=== PATIENT | female | born 1930 | race Hispanic/Latino ===

== ENCOUNTER 2017-01-26 06:52 | Inpatient (IN) | payer MEDICARE ==
[2016-12-23 09:29] VITALS: BMI 17.6
[2017-01-26 07:42] LABS: ADD MANUAL DIFF? NO
[2017-01-26 07:46] LABS: BASO # 0.03 K/mm3 (0.0-2.0); BASO % 0.4 % (0.0-3.0); EOS # 0.2 (0.0-0.7); GRAN # 5.66 (1.4-6.5); GRAN % 68.2 % (50.0-68.0); HEMATOCRIT 37.7 % (36.0-48.0); LYMPH # 1.5 (1.2-3.4); LYMPH % 18.6 % (22.0-35.0); MEAN CELL VOLUME 91.1 fL (80.0-105.0); MEAN CORPUSCULAR HEMOGLOBIN 30.2 pg (25.0-35.0); MEAN CORPUSCULAR HGB CONC 33.2 g/dl (31.0-37.0); MEAN PLATELET VOLUME 11.1 fl (7.0-11.0); MONO # 0.9 (0.1-0.6); MONO % 10.8 % (1.0-6.0); PLATELET COUNT 339 10^3/uL (120.0-450.0); RED CELL DISTRIBUTION WIDTH 14.4 % (11.5-14.5); WHITE BLOOD COUNT 8.3 10^3/ul (4.5-11.0)
[2017-01-26 07:56] LABS: INR 1.02 (0.93-1.08); PARTIAL THROMBOPLASTIN TIME 28.3 Seconds (23.7-30.8)
[2017-01-26 07:59] LABS: CALCIUM 10.4 mg/dL (8.4-10.5); POTASSIUM 4.2 mmol/L (3.6-5.0)
[2017-01-26] MEDS ORDERED: Rocuronium 10 mg/ml (5 ml) ONE ×2 (09:29→10:36)
[2017-01-26] MEDS ORDERED: Propofol 10 mg/ml Inj (20 ML) ONE (09:29)
[2017-01-26] MEDS ORDERED: metroNIDAZOLE IV 500 mg/100 ml 100 ML ONE (09:42)
[2017-01-26] MEDS ORDERED: ePHEDrine 50 mg/ml Inj ONE (09:53)
--- NOTE | 2017-01-26 11:37 | PCM.SURG1 ---
Surgeon's Initial Post Op Note - Surgeon's Notes Surgeon: Dr. Woodward Transmission And Protection Engineer: Dr. Young PGY-1, Dr. Carrera Pre-Operative Diagnosis: Colon Cancer Operative Findings: See operative notes Post-Operative Diagnosis: Colon Cancer Operation Performed: Right Hemicolectomy Specimen/Specimens Removed: Right colon Estimated Blood Loss: EBL {In ML}: 20 Drains Used: No Drains Post-Op Condition: Good Date of Surgery/Procedure: 01/26/17 Time of Surgery/Procedure: 11:37
[2017-01-26] MEDS ORDERED: HYDROmorphone 0.5 mg/0.5 ml ISec IVP PRN ×2 (11:38→11:43)
[2017-01-26] MEDS ORDERED: Lactated Ringer's 1,000 ML IV SCH ×2 (11:45)
[2017-01-26] MEDS ORDERED: Insulin Regular 1 UNITS/0.01 ML ML SC STA (13:24)
--- NOTE | 2017-01-26 13:24 | OP ---
PROCEDURE DATE: 01/26/2017 PREOPERATIVE DIAGNOSIS: Right colon cancer. POSTOPERATIVE DIAGNOSIS: Right colon cancer. PROCEDURE PERFORMED: Right hemicolectomy. SURGEON: Dr. Woodward ASSISTANTS: Dr. Carrera and Dr. Young ANESTHESIOLOGIST: Dr. Tyler ANESTHESIA: General endotracheal anesthesia. ESTIMATED BLOOD LOSS: 20 mL. SPECIMEN: Right colon with attached omentum. INDICATION: The patient is an 87-year-old female with history of right colon cancer noted on a colon oscopy almost obstructing with poor p.o. intake and malnutrition. The patient was seen in the office . Discussed extensively with patient and family regarding the risks involving the surgery. However, both the family and the patient wanted to proceed and patient was scheduled for right hemicolectomy. The patient was brought into the operating room and placed on the operating table in a supine positio n. The patient was connected to EKG, blood pressure and pulse oximeter monitors. The patient then u nderwent general endotracheal anesthesia and was prepped and draped in usual sterile fashion. First, a standard timeout procedure took place and everybody in the room agreed as to the patient's i dentity, diagnosis and procedure to be performed. Dr. Carrera was the oral surgery assistant and was present during the entire procedure and was essential to p rompt and safe performance of this procedure. He was involved in all aspects including the entry int o the abdominal cavity, dissection, colon resection and anastomosis as well as closure of the wound. First, using #15 blade, an incision was made in the midline extending from just below the umbilicus t o the mid epigastric area. The dissection was carried through the subcutaneous fat and fascia and ac cess to the abdominal cavity was obtained. On initial evaluation, it appeared that the mass was in t he mid descending colon and I then proceeded with mobilization of the right colon along the line of T oldt and slowly elevated the right colon on its mesentery. The hepatic flexure was mobilized and the omentum was transected to about the proximal 1/3 of the transverse colon. The right branch of the m iddle colic artery was identified and ligated and transected. Once the mesentery was completely elev ated to its root and the distal ileum, I then proceeded with transecting the transverse colon using G IA stapler and proceeded with dissection of the mesentery at its root. The dissection was carried al l the way down to the origin of the ileocolic artery. Once this was done and all the lymph nodes adj acent to it were included with the specimen, I then proceeded with transecting terminal ileum at a po int about 10 cm from the ileocecal valve and transected the mesentery of this portion of the colon al l the way down to the origin of the ileocecal artery. Once this was done, the ileocecal artery was t hen clamped and transected and ligated using 2-0 Vicryl. Once this was completed, I then proceeded w ith removal of the specimen and creating anastomosis between the terminal ileum and transverse colon using VERN and TA staplers. The mesenteric defect was closed. The abdominal cavity was copiously irr igated. There was excellent hemostasis. The wound was closed using #1 PDS for the fascia, 3-0 Vicry l for the subcutaneous tissue and 4-0 Monocryl for skin. Sterile Dermabond dressing was applied to t he wound. The patient tolerated the procedure well and there was no complication. The patient was a wakened, extubated and transferred to the recovery room for further observation. Johan Woodward MD cc: [id number] TT: 01/26/2017 13:24:35 en
[2017-01-26] MEDS ORDERED: Insulin Regular 100 units/ml ONE (13:37)
[2017-01-26] MEDS: Lactated Ringer's 1,000 ML IV SCH ×2 (14:30→17:24)
--- NOTE | 2017-01-26 15:02 | CP.PCM.CON ---
Addendum entered and electronically signed by Flores Rincon DO 01/26/17 16:25: - Physical Exam Head: Positive for: Atraumatic, Normocephalic Pupils: Positive for: PERRL Extroacular Muscles: Positive for: EOMI Conjunctiva: Positive for: Normal Mouth: Positive for: Moist Mucous Membranes Neck: Positive for: Normal Range of Motion Respiratory/Chest: Negative for: Respiratory Distress, Accessory Muscle Use, Wheezing, Rhonchi, Rales Cardiovascular: Positive for: Regular rhythm, 2/6 systolic murmur LSB Abdomen: Positive for: Normal Bowel Sounds, post-surgical scar, clean, no significant erythema, edema, no drainage. Minimal TTP. Negative for: Distention , Peritoneal Signs, Rebound, Guarding Back: Positive for: Normal Inspection. Negative for: Midline Tenderness, Paraspinal Tenderness Upper Extremity: Positive for: Normal Inspection, Normal ROM. Negative for: Cyanosis, Edema Lower Extremity: Negative for: Edema, Erythema Neurological: Positive for: GCS=15, CN II-XII Intact, Speech Normal Skin: Positive for: Warm, Dry, Normal Color. 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 Mass was found to be nearly obstructing on colonoscopy 12/29/2016. 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 Patient admits to poor appetite in the previous months, occasional nausea without emesis. Denies h/o CP, SOB, diarrhea, fevers, chills, rashes. Patient is seen and examined post-op in ICU, where she is being admitted for close monitoring. She admits to mild post-op abd pain, denies nausea, headache, chills , CP, SOB. Tolerating NC, drank water without any nausea or increased abdominal pain. PMHx: HTN, IDDM2, GERD, sigmoid diverticulosis, R infrarenal AAA 3.0cm PSHx: R hemicolectomy 01/26/2017 FamilyHx: Denies family h/o colon cancers SocialHx: Never smoked, no h/o EtOH or drug use Allergies: NKDA HomeMeds: Humalog, amlodipine, valsartan, omeprazole Review of Systems - Constitutional Constitutional: absent: Chills, Fever - EENT Eyes: absent: Change in Vision Ears: absent: Dizziness - Cardiovascular Cardiovascular: absent: Chest Pain, Diaphoresis, Dyspnea - Respiratory Respiratory: absent: Cough, Dyspnea, Pain on Inspiration - Gastrointestinal Gastrointestinal: Abdominal Pain (01/02). absent: Nausea, Vomiting - Genitourinary Genitourinary: absent: Dysuria, Flank Pain - Reproductive: Female Reproductive:Female: Post Menopausal - Menstruation Menstruation: Post Menopausal Past Patient History - Infectious Disease Hx of Infectious Diseases: None - Tetanus Immunizations Tetanus Immunization: Unknown - Past Social History Smoking Status: Never Smoked - CARDIAC Hx Pacemaker: No - PULMONARY Hx Respiratory Disorders: No - NEUROLOGICAL Hx Paralysis: No - HEENT Hx Cataracts: No Hx Difficulty Chewing: No Hx Epistaxis: No Hx Glaucoma: No Hx Macular Degeneration: No - RENAL Hx Chronic Kidney Disease: No Hx Dialysis: No Hx Kidney Stones: No Hx Neurogenic Bladder: No Hx Renal (Kidney) Cancer: No - ENDOCRINE/METABOLIC Hx Endocrine Disorders: Yes - HEMATOLOGICAL/ONCOLOGICAL Hx Blood Transfusions: No - INTEGUMENTARY Hx Dermatological Problems: No Hx Basil Cell: No Hx Eczema: No Hx Melanoma: No Hx Psoriasis: No Hx Squamous Cell: No - MUSCULOSKELETAL/RHEUMATOLOGICAL Hx Musculoskeletal Disorders: No - GASTROINTESTINAL Hx Gastrointestinal Disorders: Yes (colitis) - GENITOURINARY/GYNECOLOGICAL Hx Genitourinary Disorders: No Hx Reproductive Disorders: No Hx Urinary Tract Infection: Yes (RECENTLY TREATED NOW RESOLVED) - PSYCHIATRIC Hx Emotional Abuse: No Hx Physical Abuse: No Hx Substance Use: No - SURGICAL HISTORY Hx Surgeries: Yes - ANESTHESIA Hx Anesthesia Reactions: No Hx Malignant Hyperthermia: No Meds Allergies/Adverse Reactions: Allergies Allergy/AdvReac Type Severity Reaction Status Date / Time No Known Allergies Allergy Verified 08/19/14 11:32 - Medications Medications: Current Medications Acetaminophen (Tylenol 325 Mg Supp) 325 mg RC Q6H PRN PRN Reason: Fever >100.4 F Heparin Sodium (Porcine) (Heparin) 5,000 units SC Q12 RAFA PRN Reason: Protocol Hydromorphone HCl (Dilaudid) 0.5 mg IVP Q4H PRN PRN Reason: Pain, severe (8-10) Metronidazole (Flagyl) 100 mls @ 100 mls/hr IV 0200,1800 RAFA PRN Reason: Protocol Stop: 01/27/17 02:59 Cefoxitin Sodium 1 gm/ Sodium (Chloride) 100 mls @ 100 mls/hr IV 0200,1800 RAFA PRN Reason: Protocol Stop: 01/27/17 02:59 Lactated Ringer's (Lactated Ringer's) 1,000 mls @ 100 mls/hr IV .Q10H RAFA Insulin Human Regular (Humulin R Med) 0 units SC ACHS RAFA PRN Reason: Protocol Non-Formulary Medication (Amlodipine/Valsartan [Exforge 10-160 Mg Tablet]) 1 tab PO QAM RAFA Pantoprazole Sodium (Protonix Ec Tab) 40 mg PO QAM RAFA Physical Exam - Constitutional Appears: No Acute Distress - Head Exam Head Exam: ATRAUMATIC, NORMAL INSPECTION, NORMOCEPHALIC - Eye Exam Eye Exam: EOMI, Normal appearance, PERRL. absent: Scleral icterus Pupil Exam: NORMAL ACCOMODATION, PERRL Results - Vital Signs Recent Vital Signs: Last Vital Signs Temp 97 F L 01/26/17 14:15 Pulse 86 01/26/17 14:15 Resp 18 01/26/17 14:15 BP 90/36 L 01/26/17 14:15 Pulse Ox 99 01/26/17 14:15 - Labs Result Diagrams: 01/26/17 07:30 01/26/17 07:30 Labs: Laboratory Results - last 24 hr 01/26/17 01/26/17 07:30 13:17 WBC 8.3 RBC 4.14 Hgb 12.5 Hct 37.7 MCV 91.1 MCH 30.2 MCHC 33.2 RDW 14.4 Plt Count 339 MPV 11.1 H Gran % 68.2 H Lymph % (Auto) 18.6 L [place] % (Auto) 10.8 H Eos % (Auto) 2.0 Baso % (Auto) 0.4 Gran # 5.66 Lymph # 1.5 [place]asta # 0.9 H Eos # 0.2 Baso # 0.03 PT 11.0 INR 1.02 APTT 28.3 Sodium 138 Potassium 4.2 Chloride 100 Carbon Dioxide 25 Anion Gap 17 BUN 14 Creatinine 1.1 Est GFR ( Amer) 57 Est GFR (Non-Af Amer) 47 POC Glucose (mg/dL) 190 H Random Glucose 162 H Calcium 10.4 Blood Type A NEGATIVE Antibody Screen Negative BBK History Checked Patient has bt Assessment & Plan - Assessment and Plan (Free Text) Assessment: 87 yo F with h/o IDDM2, HTN, GERD, recently diagnosed poorly differentiated adenocarcinoma s/p R hemicolectomy admitted to ICU for observation Plan: Neuro: AAOx3, NAD Maintain normothermia Pulm: Comfortable on NC. Maintain spo2>90 CV: HD stable. Monitor VS hourly Renal: Monitor I&Os, renal function GI: POD #0 s/p uncomplicated R hemicolectomy, no significant blood loss. Monitor vital signs, electrolytes, Hb, I&Os. Pain meds, IVF, management as per surgery 11/22/2016 CT A/P without contrast showed circumferential mural thickening of 5.8cm length of mid ascending colon with mild infiltration of the adjacent fat, pericolonic LN measuring 9mm 12/29/2016 Colonoscopy biopsy shows poorly differentiated adenocarcinoma with focal lymphovascular invasion Recommend oncology evaluation Surgical pathology results pending Endo: Med Lispro SSI, monitor accuchecks, adjust regimen as needed to maintain euglycemia 140-180 ID: No leukocytosis, afebrile, postop abx as per surgical team Heme: Hb stable. Continue to monitor DVT/GI ppx: Protonix, CLD, SQH - Date & Time Date: 01/26/17 Time: 15:02 <Trang Ocampo MD - Last Filed: 01/26/17 16:41> Meds - Medications Medications: Current Medications Acetaminophen (Tylenol 325mg Tab) 650 mg PO Q6H PRN PRN Reason: Fever >100.4 F Heparin Sodium (Porcine) (Heparin) 5,000 units SC Q12 RAFA PRN Reason: Protocol Hydromorphone HCl (Dilaudid) 0.5 mg IVP Q4H PRN PRN Reason: Pain, severe (8-10) Metronidazole (Flagyl) 100 mls @ 100 mls/hr IV 0200,1800 RAFA PRN Reason: Protocol Stop: 01/27/17 02:59 Cefoxitin Sodium 1 gm/ Sodium (Chloride) 100 mls @ 100 mls/hr IV 0200,1800 RAFA PRN Reason: Protocol Stop: 01/27/17 02:59 Lactated Ringer's (Lactated Ringer's) 1,000 mls @ 100 mls/hr IV .Q10H RAFA Insulin Human Lispro (Humalog Med) 0 units SC ACHS RAFA PRN Reason: Protocol Non-Formulary Medication (Amlodipine/Valsartan [Exforge 10-160 Mg Tablet]) 1 tab PO QAM RAFA Pantoprazole Sodium (Protonix Ec Tab) 40 mg PO QAM RAFA Results - Vital Signs Recent Vital Signs: Last Vital Signs Temp 97.6 F 01/26/17 14:56 Pulse 82 01/26/17 14:56 Resp 20 01/26/17 14:56 BP 105/47 L 01/26/17 14:56 Pulse Ox 99 01/26/17 14:15 - Labs Result Diagrams: 01/26/17 07:30 01/26/17 07:30 Labs: Laboratory Results - last 24 hr 01/26/17 01/26/17 07:30 13:17 WBC 8.3 RBC 4.14 Hgb 12.5 Hct 37.7 MCV 91.1 MCH 30.2 MCHC 33.2 RDW 14.4 Plt Count 339 MPV 11.1 H Gran % 68.2 H Lymph % (Auto) 18.6 L [place] % (Auto) 10.8 H Eos % (Auto) 2.0 Baso % (Auto) 0.4 Gran # 5.66 Lymph # 1.5 [place] # 0.9 H Eos # 0.2 Baso # 0.03 PT 11.0 INR 1.02 APTT 28.3 Sodium 138 Potassium 4.2 Chloride 100 Carbon Dioxide 25 Anion Gap 17 BUN 14 Creatinine 1.1 Est GFR ( Amer) 57 Est GFR (Non-Af Amer) 47 POC Glucose (mg/dL) 190 H Random Glucose 162 H Calcium 10.4 Blood Type A NEGATIVE Antibody Screen Negative BBK History Checked Patient has bt Attending/Attestation - Attestation I have personally seen and examined this patient.: Yes I have fully participated in the care of the patient.: Yes I have reviewed all pertinent clinical information: Yes Notes (Text): 01/26/17 16:37 87 y/o F admitted post op from R Hemicolectomy No Suzette -op or post -op complications noted by the surgical team. Found to have concern for a mass on previous imaging and colonoscopy . Pre-jett path shows adenocarcinoma. Op site clean w/o bleeding . Pt's pain well controlled. Can use Morhine prn and/or tylenol. D5 Normal saline @ 100 ml/ hr until feeding is improved, clears tonight per surgery Insulin sliding scale , hold p.o DM meds HTN controlled, will restart once sbp rises. keep < SBP 140. dvt p - heparin sq tid PPi cc time 55 min case d/w with surgical team
[2017-01-26] MEDS ORDERED: Insulin Lispro (humaLOG) LOW Coverage SC SCH (16:30)
[2017-01-26] MEDS ORDERED: Insulin Reg-MEDIUM-Coverage SC SCH (16:30)
[2017-01-26] MEDS: Insulin Lispro (humaLOG) MEDIUM Coverage SC SCH ×2 (17:26→22:12)
[2017-01-26] MEDS: metroNIDAZOLE IV 500 mg/100 ml 100 ML IV SCH (17:27)
[2017-01-26] MEDS: cefOXitin Sodium 1 GM in Sodium Chloride 0.9% 100 ML IV SCH (18:13)
[2017-01-27] MEDS: metroNIDAZOLE IV 500 mg/100 ml 100 ML IV SCH (02:02)
[2017-01-27] MEDS: cefOXitin Sodium 1 GM in Sodium Chloride 0.9% 100 ML IV SCH (02:04)
[2017-01-27 06:27] LABS: HEMATOCRIT 32.8 % (36.0-48.0); MEAN CELL VOLUME 91.1 fL (80.0-105.0); MEAN CORPUSCULAR HGB CONC 32.9 g/dl (31.0-37.0); MEAN PLATELET VOLUME 11.7 fl (7.0-11.0); RED CELL DISTRIBUTION WIDTH 14.6 % (11.5-14.5)
[2017-01-27 06:50] LABS: ALKALINE PHOSPHATASE 51 U/L (38-133); ALT/SGPT 17 U/L (7-56); AST/SGOT 22 U/L (15-39); BILIRUBIN,TOTAL 0.5 mg/dL (0.2-1.3); BLOOD UREA NITROGEN 12 mg/dL (7-21); CALCIUM 9.2 mg/dL (8.4-10.5); CARBON DIOXIDE 24 mmol/L (21-33); CHLORIDE 101 mmol/L (98-107); GFR AFRICAN-AMERICAN > 60; GLUCOSE,RANDOM 168 mg/dL (70-110); MAGNESIUM 1.7 mg/dL (1.7-2.2); PHOSPHOROUS 3.3 mg/dL (2.5-4.5); POTASSIUM 4.4 mmol/L (3.6-5.0); SODIUM 134 mmol/L (132-148); TOTAL PROTEIN 6.1 g/dL (5.8-8.3)
[2017-01-27] MEDS: Lactated Ringer's 1,000 ML IV SCH (08:07)
[2017-01-27] MEDS ORDERED: Non Formulary Medication (Amlodipine/Valsartan [Exforge 10-160 Mg Tablet] 1 TAB) PO SCH (10:00)
--- NOTE | 2017-01-27 10:05 | CP.CCUPN ---
<Flores Rincon - Last Filed: 01/27/17 12:04> CCU Subjective - Physician Review Events Since Last Encounter (Free Text): 01/27/17 10:45 Patient seen and examined bedside. No acute events overnight. Denies any significant abd pain, n/v, fevers, chill, CP, SOB. Has used Tylenol for PRN pain twice overnight. Passing flatus, no BM yet. Critical Care Time Spent (in minutes): 30 CCU Objective - Vital Signs / Intake & Output Intake and Output (Last 8hrs): Intake & Output 01/26/17 01/27/17 01/27/17 22:59 06:59 14:59 Intake Total 1510 1520 Output Total 405 435 Balance 1105 1085 Weight 100 lb 9.6 oz Intake: IV 1150 1400 Right Antecubital 0 Left Wrist 1150 1400 Oral 360 120 Output: Urine 405 435 Urethral (Mcduffie) 405 435 Other: # Bowel Movements 0 0 - Physical Exam Head: Positive for: Atraumatic, Normocephalic Pupils: Positive for: PERRL Extroacular Muscles: Positive for: EOMI Conjunctiva: Positive for: Normal Mouth: Positive for: Moist Mucous Membranes Nose (Internal): Positive for: Normal Inspection Neck: Positive for: Normal Range of Motion Respiratory/Chest: Positive for: Clear to Auscultation, Good Air Exchange. Negative for: Respiratory Distress, Accessory Muscle Use Cardiovascular: Positive for: Regular Rate and Rhythm, Murmurs (2/6 systolic murmur LSB), Normal S1, S2 Abdomen: Positive for: Tenderness (minimal post-op TTP). Negative for: Distention, Normal Bowel Sounds, Peritoneal Signs, Rebound, Guarding Genitourinary/Pelvic Exam: Positive for: Other (mcduffie in place) Upper Extremity: Positive for: Normal Inspection. Negative for: Cyanosis, Edema Lower Extremity: Positive for: Normal Inspection. Negative for: Edema Neurological: Positive for: GCS=15, CN II-XII Intact Skin: Positive for: Warm, Dry Psychiatric: Positive for: Alert, Oriented x 3, Normal Insight, Normal Concentration - Medications Active Medications: Active Medications Generic Name Dose Route Start Last Admin Trade Name Freq PRN Reason Stop Dose Admin Acetaminophen 650 mg 01/26/17 16:14 01/26/17 20:11 Tylenol 325mg Tab PO 650 mg Q6H PRN Administration Fever >100.4 F Acetaminophen 650 mg 01/26/17 20:16 Tylenol 325mg Tab PO Q6H PRN Pain, moderate (4-7) Heparin Sodium (Porcine) 5,000 units 01/27/17 10:00 Heparin SC Q12 [facility] Protocol Lactated Ringer's 1,000 mls @ 100 mls/hr 01/26/17 11:52 01/27/17 08:07 Lactated Ringer's IV 100 mls/hr .Q10H RAFA Administration Insulin Human Lispro 0 units 01/26/17 16:30 01/26/17 22:12 Humalog Med SC Not Given ACHS [facility] Protocol Non-Formulary Medication 1 tab 01/27/17 10:00 Amlodipine/Valsartan [Exforge 10-160 Mg Tablet] PO QAM RAAF Pantoprazole Sodium 40 mg 01/27/17 10:00 Protonix Ec Tab PO QAM [facility] - Patient Studies Lab Studies: Lab Studies 01/27/17 01/26/17 Range/Units 06:00 13:17 WBC 14.0 H D (4.5-11.0) 10^3/ul RBC 3.60 (3.5-6.1) 10^6/uL Hgb 10.8 L (12.0-16.0) gm/dL Hct 32.8 L (36.0-48.0) % MCV 91.1 (80.0-105.0) fL MCH 30.0 (25.0-35.0) pg MCHC 32.9 (31.0-37.0) g/dl RDW 14.6 H (11.5-14.5) % Plt Count 272 (120.0-450.0) 10^3/uL MPV 11.7 H (7.0-11.0) fl Sodium 134 (132-148) mmol/L Potassium 4.4 (3.6-5.0) mmol/L Chloride 101 (98-107) mmol/L Carbon Dioxide 24 (21-33) mmol/L Anion Gap 13 (10-20) BUN 12 (7-21) mg/dL Creatinine 0.8 (0.5-1.4) mg/dL Est GFR ( Amer) > 60 Est GFR (Non-Af Amer) > 60 POC Glucose (mg/dL) 190 H (65-110) mg/dL Random Glucose 168 H (70-110) mg/dL Calcium 9.2 (8.4-10.5) mg/dL Phosphorus 3.3 (2.5-4.5) mg/dL Magnesium 1.7 (1.7-2.2) mg/dL Total Bilirubin 0.5 (0.2-1.3) mg/dL AST 22 (15-39) U/L ALT 17 (7-56) U/L Alkaline Phosphatase 51 (38-133) U/L Total Protein 6.1 (5.8-8.3) g/dL Albumin 3.0 (3.0-4.8) g/dL Globulin 3.0 gm/dL Albumin/Globulin Ratio 1.0 L (1.1-1.8) Laboratory Results - last 24 hr 01/26/17 01/27/17 13:17 06:00 WBC 14.0 H D RBC 3.60 Hgb 10.8 L Hct 32.8 L MCV 91.1 MCH 30.0 MCHC 32.9 RDW 14.6 H Plt Count 272 MPV 11.7 H Sodium 134 Potassium 4.4 Chloride 101 Carbon Dioxide 24 Anion Gap 13 BUN 12 Creatinine 0.8 Est GFR ( Amer) > 60 Est GFR (Non-Af Amer) > 60 POC Glucose (mg/dL) 190 H Random Glucose 168 H Calcium 9.2 Phosphorus 3.3 Magnesium 1.7 Total Bilirubin 0.5 AST 22 ALT 17 Alkaline Phosphatase 51 Total Protein 6.1 Albumin 3.0 Globulin 3.0 Albumin/Globulin Ratio 1.0 L Fingerstick Blood Sugar Results: 142 Review of Systems - Constitutional Constitutional: absent: Fever, Chills - EENT Eyes: absent: Change in Vision - Cardiovascular Cardiovascular: absent: Chest Pain, Diaphoresis, Dyspnea - Respiratory Respiratory: absent: Cough, Dyspnea - Gastrointestinal Gastrointestinal: absent: Abdominal Pain, Diarrhea, Nausea, Vomiting Critical Care Progress Note - Ventilator Checklist PUD Prophalyxis: Yes DVT Prophylaxis: Yes - Prophylaxis GI Prophylaxis GI: PPI - Prophylaxis DVT Prophylaxis DVT: Heparin SQ - Nutrition Nutrition: Nutrition Category Date Time Status Liquid Diet [DIET] Diets 01/26/17 Lunch Ordered Assessment/Plan - Assessment and Plan (Free Text) Assessment: 87 yo F with h/o IDDM2, HTN, GERD, recently diagnosed poorly differentiated adenocarcinoma s/p R hemicolectomy admitted to ICU for observation Plan: Neuro: AAOx3, NAD Maintain normothermia Pulm: Comfortable on NC. Maintain spo2>90 Continue incentive spirometry CV: HD stable. Monitor VS hourly. Continue Exforge. Maintain MAP>65 Renal: Monitor I&Os, renal function GI: POD #1 s/p uncomplicated R hemicolectomy, no significant blood loss. Monitor vital signs, electrolytes, Hb, I&Os. Pain meds, IVF, management as per surgery 11/22/2016 CT A/P without contrast showed circumferential mural thickening of 5.8cm length of mid ascending colon with mild infiltration of the adjacent fat, pericolonic LN measuring 9mm 12/29/2016 Colonoscopy biopsy shows poorly differentiated adenocarcinoma with focal lymphovascular invasion Recommend oncology evaluation Surgical pathology results pending Endo: Med Lispro SSI, monitor accuchecks, adjust regimen as needed to maintain euglycemia 140-180 ID: Leukocytosis today up to 14.0, afebrile, postop abx as per surgical team Heme: Hb stable. Continue to monitor DVT/GI ppx: Protonix, FLD, SQH Dispo: Transfer to med/surg - Date & Time Date: 01/27/17 Time: 10:50 <Damaris MORRIS,Trang H - Last Filed: 01/27/17 17:44> CCU Objective - Vital Signs / Intake & Output Intake and Output (Last 8hrs): Intake & Output 01/27/17 01/27/17 01/27/17 06:59 14:59 22:59 Intake Total 1520 720 Output Total 435 1700 Balance 1085 -980 Weight 100 lb 9.6 oz 100 lb 4.8 oz Intake: IV 1400 Right Antecubital 0 Left Wrist 1400 Oral 120 720 Output: Urine 435 1500 Urethral (Mcduffie) 435 1500 Stool 200 Other: # Bowel Movements 0 0 - Medications Active Medications: Active Medications Generic Name Dose Route Start Last Admin Trade Name Freq PRN Reason Stop Dose Admin Acetaminophen 650 mg 01/26/17 16:14 01/27/17 10:18 Tylenol 325mg Tab PO 650 mg Q6H PRN Administration Fever >100.4 F Acetaminophen 650 mg 01/26/17 20:16 Tylenol 325mg Tab PO Q6H PRN Pain, moderate (4-7) Heparin Sodium (Porcine) 5,000 units 01/27/17 10:00 01/27/17 10:20 Heparin SC 5,000 units Q12 [facility] Administration Protocol Insulin Human Lispro 0 units 01/26/17 16:30 01/27/17 14:00 Humalog Med SC 3 units ACHS [facility] Administration Protocol Non-Formulary Medication 1 tab 01/27/17 10:00 Amlodipine/Valsartan [Exforge 10-160 Mg Tablet] PO QAM RAFA Pantoprazole Sodium 40 mg 01/27/17 10:00 01/27/17 10:19 Protonix Ec Tab PO 40 mg QAM [facility] Administration - Patient Studies Lab Studies: Microbiology Studies 01/26/17 07:30 MRSA Culture (Admit) - Final Nose MRSA NOT DETECTED Lab Studies 01/27/17 Range/Units 06:00 WBC 14.0 H D (4.5-11.0) 10^3/ul RBC 3.60 (3.5-6.1) 10^6/uL Hgb 10.8 L (12.0-16.0) gm/dL Hct 32.8 L (36.0-48.0) % MCV 91.1 (80.0-105.0) fL MCH 30.0 (25.0-35.0) pg MCHC 32.9 (31.0-37.0) g/dl RDW 14.6 H (11.5-14.5) % Plt Count 272 (120.0-450.0) 10^3/uL MPV 11.7 H (7.0-11.0) fl Sodium 134 (132-148) mmol/L Potassium 4.4 (3.6-5.0) mmol/L Chloride 101 (98-107) mmol/L Carbon Dioxide 24 (21-33) mmol/L Anion Gap 13 (10-20) BUN 12 (7-21) mg/dL Creatinine 0.8 (0.5-1.4) mg/dL Est GFR ( Amer) > 60 Est GFR (Non-Af Amer) > 60 Random Glucose 168 H (70-110) mg/dL Hemoglobin A1c 7.0 H (4.2-6.5) % Calcium 9.2 (8.4-10.5) mg/dL Phosphorus 3.3 (2.5-4.5) mg/dL Magnesium 1.7 (1.7-2.2) mg/dL Total Bilirubin 0.5 (0.2-1.3) mg/dL AST 22 (15-39) U/L ALT 17 (7-56) U/L Alkaline Phosphatase 51 (38-133) U/L Total Protein 6.1 (5.8-8.3) g/dL Albumin 3.0 (3.0-4.8) g/dL Globulin 3.0 gm/dL Albumin/Globulin Ratio 1.0 L (1.1-1.8) Laboratory Results - last 24 hr 01/27/17 06:00 WBC 14.0 H D RBC 3.60 Hgb 10.8 L Hct 32.8 L MCV 91.1 MCH 30.0 MCHC 32.9 RDW 14.6 H Plt Count 272 MPV 11.7 H Sodium 134 Potassium 4.4 Chloride 101 Carbon Dioxide 24 Anion Gap 13 BUN 12 Creatinine 0.8 Est GFR ( Amer) > 60 Est GFR (Non-Af Amer) > 60 Random Glucose 168 H Hemoglobin A1c 7.0 H Calcium 9.2 Phosphorus 3.3 Magnesium 1.7 Total Bilirubin 0.5 AST 22 ALT 17 Alkaline Phosphatase 51 Total Protein 6.1 Albumin 3.0 Globulin 3.0 Albumin/Globulin Ratio 1.0 L Critical Care Progress Note - Nutrition Nutrition: Nutrition Category Date Time Status Liquid Diet [DIET] Diets 01/27/17 Dinner Ordered Attending/Attestation - Attestation I have personally seen and examined this patient.: Yes I have fully participated in the care of the patient.: Yes I have reviewed all pertinent clinical information: Yes Notes (Text): 01/27/17 17:44 87 y/o f s/p partial colectomy No acute issues overnight Pain controled with tylenol Out of bed to chair diet advanced per surgery Vitals WNL PT OT needed Electrolytes to be repleted Pt awaiting transfer.
[2017-01-27] MEDS: Pantoprazole 40 mg EC Tab PO SCH (10:19)
[2017-01-27] MEDS: Insulin Lispro (humaLOG) MEDIUM Coverage SC SCH ×2 (14:00→23:11)
--- NOTE | 2017-01-27 14:54 | CP.PCM.PN ---
Subjective - Date & Time of Evaluation Date of Evaluation: 01/27/17 Time of Evaluation: 07:00 - Subjective Subjective: General Surgery Progress Note for Dr. Woodward This 87F was seen and examined this AM at bedside. reports no acute events overnight. Pain well controlled. Denies fevers chills chest pain SOB nausea vomiting or diarrhea. Patient denies any flatus. Wound well approximated non erythematous non draining. Objective - Vital Signs/Intake and Output Vital Signs (last 24 hours): Temp Pulse Resp BP Pulse Ox 98.2 F 76 26 H 135/58 L 97 01/27/17 04:00 01/27/17 12:28 01/27/17 12:28 01/27/17 12:00 01/27/17 12:28 Intake and Output: 01/27/17 01/27/17 06:59 18:59 Intake Total 1520 240 Output Total 710 400 Balance 810 -160 - Medications Medications: Current Medications Acetaminophen (Tylenol 325mg Tab) 650 mg PO Q6H PRN PRN Reason: Fever >100.4 F Last Admin: 01/27/17 10:18 Dose: 650 mg Acetaminophen (Tylenol 325mg Tab) 650 mg PO Q6H PRN PRN Reason: Pain, moderate (4-7) Heparin Sodium (Porcine) (Heparin) 5,000 units SC Q12 RAFA PRN Reason: Protocol Last Admin: 01/27/17 10:20 Dose: 5,000 units Insulin Human Lispro (Humalog Med) 0 units SC ACHS RAFA PRN Reason: Protocol Last Admin: 01/27/17 14:00 Dose: 3 units Non-Formulary Medication (Amlodipine/Valsartan [Exforge 10-160 Mg Tablet]) 1 tab PO QAM RAFA Pantoprazole Sodium (Protonix Ec Tab) 40 mg PO QAM [facility] Last Admin: 01/27/17 10:19 Dose: 40 mg - Labs Labs: 01/27/17 06:00 01/27/17 06:00 PT 11.0 Seconds (9.9-11.8) 01/26/17 07:30 INR 1.02 (0.93-1.08) 01/26/17 07:30 APTT 28.3 Seconds (23.7-30.8) 01/26/17 07:30 - Constitutional Appears: Non-toxic, No Acute Distress - Head Exam Head Exam: ATRAUMATIC, NORMOCEPHALIC - Eye Exam Eye Exam: EOMI, Normal appearance - ENT Exam ENT Exam: Mucous Membranes Moist, Normal Exam - Respiratory Exam Respiratory Exam: Clear to Ausculation Bilateral, NORMAL BREATHING PATTERN - Cardiovascular Exam Cardiovascular Exam: REGULAR RHYTHM, +S1, +S2 - GI/Abdominal Exam GI & Abdominal Exam: Soft. absent: Guarding, Rigid, Tenderness Additional comments: Surgical glue in place. Wound well approximated non erythematous non draining. - Neurological Exam Neurological Exam: Alert, Awake - Psychiatric Exam Psychiatric exam: Normal Affect, Normal Mood - Skin Skin Exam: Dry, Intact, Normal Color Assessment and Plan - Assessment and Plan (Free Text) Assessment: This is an 87F with a PMH of HTN and DM who is POD#1 S/P Right storm colectomy and doing well DM: Continue Medium insulin sliding scale HTN: Continue amlodipine/valsartan Pain: Continue Tylenol for pain avoid opiates GI: Continue home Protonix PE PPX: Continue heparin sc and stockings Resp: Continue insentive spirometry Diet: Goal to advance to full liquids this evening Transfer to [facility] [place] Discussed with Dr. Crissy Young PGY-1
[2017-01-28 07:52] LABS: HEMATOCRIT 33.7 % (36.0-48.0); MEAN CELL VOLUME 91.1 fL (80.0-105.0); MEAN CORPUSCULAR HGB CONC 32.9 g/dl (31.0-37.0); MEAN PLATELET VOLUME 11.4 fl (7.0-11.0); RED CELL DISTRIBUTION WIDTH 14.9 % (11.5-14.5); WHITE BLOOD COUNT 11.5 10^3/ul (4.5-11.0)
[2017-01-28 08:06] LABS: ALKALINE PHOSPHATASE 64 U/L (38-133); ALT/SGPT 28 U/L (7-56); AST/SGOT 25 U/L (15-39); BILIRUBIN,TOTAL 0.7 mg/dL (0.2-1.3); BLOOD UREA NITROGEN 8 mg/dL (7-21); CALCIUM 9.5 mg/dL (8.4-10.5); CARBON DIOXIDE 26 mmol/L (21-33); CHLORIDE 100 mmol/L (98-107); GFR AFRICAN-AMERICAN > 60; GLUCOSE,RANDOM 128 mg/dL (70-110); MAGNESIUM 1.7 mg/dL (1.7-2.2); PHOSPHOROUS 2.4 mg/dL (2.5-4.5); POTASSIUM 3.7 mmol/L (3.6-5.0); SODIUM 135 mmol/L (132-148); TOTAL PROTEIN 6.3 g/dL (5.8-8.3)
[2017-01-28] MEDS: Insulin Lispro (humaLOG) MEDIUM Coverage SC SCH ×3 (08:30→17:45)
--- NOTE | 2017-01-28 09:41 | CP.PCM.PN ---
Subjective - Date & Time of Evaluation Date of Evaluation: 01/28/17 Time of Evaluation: 07:37 - Subjective Subjective: General Surgery Progress Note for Dr. Woodward This 87F was seen and examined by me this AM at bedside. She reports no acute events overnight. She reports that she is needing minimal pain medication. She is getting up and walking to the bathroom with the help of her nurse. She denies any flatus or BM. She is tolerating full liquids well. She denies any fevers, chills, chest pain, SOB, nausea, vomiting. Midline inscision with glue in place well approximated normocephalic. Objective - Vital Signs/Intake and Output Vital Signs (last 24 hours): Temp Pulse Resp BP Pulse Ox 98.1 F 96 H 17 131/72 94 L 01/28/17 06:00 01/28/17 06:00 01/28/17 06:00 01/28/17 06:00 01/28/17 06:00 Intake and Output: 01/28/17 01/28/17 06:59 18:59 Intake Total 120 Output Total 820 400 Balance -820 -280 - Medications Medications: Current Medications Acetaminophen (Tylenol 325mg Tab) 650 mg PO Q6H PRN PRN Reason: Fever >100.4 F Last Admin: 01/27/17 10:18 Dose: 650 mg Acetaminophen (Tylenol 325mg Tab) 650 mg PO Q6H PRN PRN Reason: Pain, moderate (4-7) Last Admin: 01/27/17 21:43 Dose: 650 mg Heparin Sodium (Porcine) (Heparin) 5,000 units SC Q12 RAFA PRN Reason: Protocol Last Admin: 01/27/17 21:43 Dose: 5,000 units Insulin Human Lispro (Humalog Med) 0 units SC ACHS RAFA PRN Reason: Protocol Last Admin: 01/27/17 23:11 Dose: Not Given Non-Formulary Medication (Amlodipine/Valsartan [Exforge 10-160 Mg Tablet]) 1 tab PO QAM RAFA Pantoprazole Sodium (Protonix Ec Tab) 40 mg PO QAM RAFA Last Admin: 01/27/17 10:19 Dose: 40 mg - Labs Labs: 01/28/17 07:30 01/28/17 07:30 PT 11.0 Seconds (9.9-11.8) 01/26/17 07:30 INR 1.02 (0.93-1.08) 01/26/17 07:30 APTT 28.3 Seconds (23.7-30.8) 01/26/17 07:30 - Constitutional Appears: Non-toxic, No Acute Distress - Head Exam Head Exam: ATRAUMATIC, NORMOCEPHALIC - Eye Exam Eye Exam: EOMI, Normal appearance - ENT Exam ENT Exam: Mucous Membranes Moist, Normal Exam - Respiratory Exam Respiratory Exam: NORMAL BREATHING PATTERN - Cardiovascular Exam Cardiovascular Exam: +S1, +S2 - GI/Abdominal Exam GI & Abdominal Exam: Soft. absent: Guarding, Rigid, Tenderness - Neurological Exam Neurological Exam: Alert, CN II-XII Intact - Psychiatric Exam Psychiatric exam: Normal Affect, Normal Mood - Skin Skin Exam: Dry, Intact, Normal Color Assessment and Plan - Assessment and Plan (Free Text) Assessment: This is an 87F with a PMH of HTN and DM who is POD#2 S/P Right storm colectomy and doing well Vital signs stable, no gross lab abnormalities DM: Continue Medium insulin sliding scale HTN: Continue amlodipine/valsartan Pain: Continue Tylenol for pain avoid opiates GI: Continue home Protonix PE PPX: Continue heparin sc and stockings Resp: Continue insentive spirometry Diet: Goal to advance to soft diet tonight Will discuss with Dr. Crissy Young PGY-1
[2017-01-28] MEDS: Pantoprazole 40 mg EC Tab PO SCH (10:10)
[2017-01-29 07:34] LABS: HEMATOCRIT 35.4 % (36.0-48.0); MEAN CELL VOLUME 90.5 fL (80.0-105.0); MEAN CORPUSCULAR HEMOGLOBIN 30.4 pg (25.0-35.0); MEAN CORPUSCULAR HGB CONC 33.6 g/dl (31.0-37.0); MEAN PLATELET VOLUME 11.3 fl (7.0-11.0); RED CELL DISTRIBUTION WIDTH 14.7 % (11.5-14.5); WHITE BLOOD COUNT 8.3 10^3/ul (4.5-11.0)
[2017-01-29] MEDS: Insulin Lispro (humaLOG) MEDIUM Coverage SC SCH ×2 (07:38→12:23)
[2017-01-29 07:48] LABS: ALKALINE PHOSPHATASE 59 U/L (38-133); ALT/SGPT 26 U/L (7-56); AST/SGOT 24 U/L (15-39); BILIRUBIN,TOTAL 0.7 mg/dL (0.2-1.3); BLOOD UREA NITROGEN 9 mg/dL (7-21); CALCIUM 9.7 mg/dL (8.4-10.5); CARBON DIOXIDE 30 mmol/L (21-33); CHLORIDE 101 mmol/L (98-107); GFR AFRICAN-AMERICAN > 60; GLUCOSE,RANDOM 138 mg/dL (70-110); MAGNESIUM 1.7 mg/dL (1.7-2.2); PHOSPHOROUS 1.9 mg/dL (2.5-4.5); POTASSIUM 3.6 mmol/L (3.6-5.0); SODIUM 137 mmol/L (132-148); TOTAL PROTEIN 6.4 g/dL (5.8-8.3)
[2017-01-29 08:21] VITALS: BP 140/70; PULSE 84; RESP 17; TEMP 98.4; O2SAT 94
[2017-01-29] MEDS: Pantoprazole 40 mg EC Tab PO SCH (09:46)
--- NOTE | 2017-01-29 13:50 | CP.PCM.DIS ---
Provider - Provider Date of Admission: 01/26/17 06:52 Attending physician: Johan Woodward MD Primary care physician: Otilio Ordoñez MD Time Spent in preparation of Discharge (in minutes): 55 Diagnosis - Discharge Diagnosis (1) Colon cancer Status: Acute (2) S/P right hemicolectomy Status: Acute Hospital Course - Lab Results Lab Results: Micro Results 01/26/17 15:17 Naris MRSA Culture (Admit) - Final MRSA NOT DETECTED 01/26/17 07:30 Nose MRSA Culture (Admit) - Final MRSA NOT DETECTED Most Recent Lab Values WBC 8.3 10^3/ul (4.5-11.0) D 01/29/17 07:00 RBC 3.91 10^6/uL (3.5-6.1) 01/29/17 07:00 Hgb 11.9 gm/dL (12.0-16.0) L 01/29/17 07:00 Hct 35.4 % (36.0-48.0) L 01/29/17 07:00 MCV 90.5 fL (80.0-105.0) 01/29/17 07:00 MCH 30.4 pg (25.0-35.0) 01/29/17 07:00 MCHC 33.6 g/dl (31.0-37.0) 01/29/17 07:00 RDW 14.7 % (11.5-14.5) H 01/29/17 07:00 Plt Count 296 10^3/uL (120.0-450.0) 01/29/17 07:00 MPV 11.3 fl (7.0-11.0) H 01/29/17 07:00 Gran % 68.2 % (50.0-68.0) H 01/26/17 07:30 Lymph % (Auto) 18.6 % (22.0-35.0) L 01/26/17 07:30 Mckean % (Auto) 10.8 % (1.0-6.0) H 01/26/17 07:30 Eos % (Auto) 2.0 % (1.5-5.0) 01/26/17 07:30 Baso % (Auto) 0.4 % (0.0-3.0) 01/26/17 07:30 Gran # 5.66 (1.4-6.5) 01/26/17 07:30 Lymph # 1.5 (1.2-3.4) 01/26/17 07:30 Mckean # 0.9 (0.1-0.6) H 01/26/17 07:30 Eos # 0.2 (0.0-0.7) 01/26/17 07:30 Baso # 0.03 K/mm3 (0.0-2.0) 01/26/17 07:30 PT 11.0 Seconds (9.9-11.8) 01/26/17 07:30 INR 1.02 (0.93-1.08) 01/26/17 07:30 APTT 28.3 Seconds (23.7-30.8) 01/26/17 07:30 Sodium 137 mmol/L (132-148) 01/29/17 07:00 Potassium 3.6 mmol/L (3.6-5.0) 01/29/17 07:00 Chloride 101 mmol/L (98-107) 01/29/17 07:00 Carbon Dioxide 30 mmol/L (21-33) 01/29/17 07:00 Anion Gap 10 (10-20) 01/29/17 07:00 BUN 9 mg/dL (7-21) 01/29/17 07:00 Creatinine 0.8 mg/dL (0.5-1.4) 01/29/17 07:00 Est GFR ( Amer) > 60 01/29/17 07:00 Est GFR (Non-Af Amer) > 60 01/29/17 07:00 POC Glucose (mg/dL) 217 mg/dL (65-110) H 01/29/17 11:25 Random Glucose 138 mg/dL (70-110) H 01/29/17 07:00 Hemoglobin A1c 7.0 % (4.2-6.5) H 01/27/17 06:00 Calcium 9.7 mg/dL (8.4-10.5) 01/29/17 07:00 Phosphorus 1.9 mg/dL (2.5-4.5) L 01/29/17 07:00 Magnesium 1.7 mg/dL (1.7-2.2) 01/29/17 07:00 Total Bilirubin 0.7 mg/dL (0.2-1.3) 01/29/17 07:00 AST 24 U/L (15-39) 01/29/17 07:00 ALT 26 U/L (7-56) 01/29/17 07:00 Alkaline Phosphatase 59 U/L (38-133) 01/29/17 07:00 Total Protein 6.4 g/dL (5.8-8.3) 01/29/17 07:00 Albumin 3.2 g/dL (3.0-4.8) 01/29/17 07:00 Globulin 3.2 gm/dL 01/29/17 07:00 Albumin/Globulin Ratio 1.0 (1.1-1.8) L 01/29/17 07:00 Blood Type A NEGATIVE 01/26/17 07:30 Antibody Screen Negative 01/26/17 07:30 BBK History Checked Patient has bt 01/26/17 07:30 - Hospital Course Hospital Course: This is an 87F presented on 01/26/17 for an elective right hemicolectomy. The patient went to the OR and received a right hemicolectomy with a side to side anastomosis. She had an uncomlicated recovery. The first 24hours post op she was in the ICU for close monitoring, on POD#1 she was transferred to the [facility] floor and started on liquids. Post op day two she was started on regular diet and continued to tolerate it well. POD#3 she had two bowel movements and is clear for discharge home from a surgical stand point. Discharge Exam - Head Exam Head Exam: ATRAUMATIC, NORMOCEPHALIC - Eye Exam Eye Exam: EOMI, Normal appearance - Respiratory Exam Respiratory Exam: NORMAL BREATHING PATTERN, UNREMARKABLE - Cardiovascular Exam Cardiovascular Exam: +S1, +S2 - GI/Abdominal Exam Additional comments: Midline inscision with glue in place. Wound well aproximated non erythematous - Neurological Exam Neurological exam: Alert, Oriented x3 - Psychiatric Exam Psychiatric exam: Normal Affect, Normal Mood - Skin Skin Exam: Dry, Intact Discharge Plan - Follow Up Plan Condition: GOOD Disposition: HOME/ ROUTINE Patient education suggested?: Yes Instructions: Colectomy (DC), Colorectal Cancer (GEN) Additional Instructions: No heavy lifting for 4 weeks, continue to get out of bed. You can shower, do not soak incision for 1 week. If you develop new or concerning symptoms go to the emergency room and/or call Dr. Woodward's office. Follow up in office in 1-2 weeks. Referrals: Otilio Ordoñez MD [Primary Care Provider] -
== END 2017-01-29 15:09 | disposition home or self-care (01) | DRG 330 ==
LOC: SDAINP 06:52 → EDSTATUS 08:30 → CCU 14:26 → 3RSO 01-28 00:18
PROVIDERS: ADMIT General Practice; ATTEND General Practice
PROC: 0DTF0ZZ Resection of Right Large Intestine, Open Approach (ICD-10-PCS; principal; 2017-01-26 08:30)
DX: C18.2 Malignant neoplasm of ascending colon (principal); E46 Unspecified protein-calorie malnutrition; Z68.1 Body mass index [BMI] 19.9 or less, adult; E11.9 Type 2 diabetes mellitus without complications; K57.30 Diverticulosis of large intestine without perforation or abscess without bleeding; K21.9 Gastro-esophageal reflux disease without esophagitis; I10 Essential (primary) hypertension; Z79.4 Long term (current) use of insulin

== ENCOUNTER 2017-04-24 12:34 | Observation (INO) | payer MEDICARE, OTHER ==
[2017-04-24 12:53] VITALS: RESP 18; BMI 16.0
--- NOTE | 2017-04-24 12:58 | ED PDOC ---
Arrival/HPI - General Time Seen by Provider: 04/24/17 12:51 Historian: Patient, Family (Daughter) - History of Present Illness Narrative History of Present Illness (Text): 04/24/17 12:51 A 87 year old female, whose past medical history includes diabetes, was sent into the emergency department by quality control director for abnormal labs. Patient states she feels fine and denies any pain or complaints. Patient denies any fever, chills, nausea, vomiting, diarrhea, abdominal pain, chest pain, shortness of breath, cough or any other complaints. Daughter reports patient has been experiencing intermittent abdominal pain for the past few days. PMD: Dr. Ordoñez Tool [employer]: Dr. Burrell Time/Duration: Prior to Arrival Quality: Other Context: Other Past Medical History - Provider Review Nursing Documentation Reviewed: Yes - Infectious Disease Hx of Infectious Diseases: None - Tetanus Immunization Tetanus Immunization: Unknown - Cardiac Hx Cardiac Disorders: No Hx Congestive Heart Failure: No Hx Hypertension: Yes - Pulmonary Hx Chronic Obstructive Pulmonary Disease (COPD): No - Neurological HX Cerebrovascular Accident: No - HEENT Hx Cataracts: No Hx Difficulty Chewing: No Hx Epistaxis: No Hx Glaucoma: No Hx Macular Degeneration: No - Renal Hx Renal Failure: No - Endocrine/Metabolic Hx Diabetes Mellitus Type 1: No Hx Diabetes Mellitus Type 2: Yes Hx Hypothyroidism: No - Hematological/Oncological Hx Blood Transfusions: No - Integumentary Hx Dermatological Disorder: No Hx Basal Cell Carcinoma: No Hx Eczema: No Hx Melanoma: No Hx Psoriasis: No Hx Squamous Cell Carcinoma: No - Musculoskeletal/Rheumatological Hx Arthritis: No - Gastrointestinal Hx Gastrointestinal Disorders: Yes (colitis) - Genitourinary/Gynecological Hx Genitourinary Disorders: No Hx Reproductive Disorders: No Hx Urinary Tract Infection: Yes (RECENTLY TREATED NOW RESOLVED) - Psychiatric Hx Emotional Abuse: No Hx Physical Abuse: No Hx Substance Use: No - Past Surgical History Past Surgical History: No Previous - Surgical History Hx Amputation: No Hx Appendectomy: No Hx Cardiac Catheterization: No Hx Cholecystectomy: No Hx Coronary Stent: No Hx Gastric Bypass Surgery: No Hx Hysterectomy: No Hx Inguinal Hernia Repair: No Hx Joint Replacement: No Hx Kidney Transplant: No Hx Liver Transplant: No Hx Mastectomy: No Hx Musculoskeletal Surgery: No Hx Open Heart Surgery: No Hx Orthopedic Surgery: No Hx Splenectomy: No Hx Valve Replacement: No - Anesthesia Hx Anesthesia Reactions: No Hx Malignant Hyperthermia: No - Suicidal Assessment Feels Threatened In Home Enviroment: No Family/Social History - Physician Review Nursing Documentation Reviewed: Yes Family/Social History: No Known Family HX Smoking Status: Never Smoked Hx Alcohol Use: No Hx Substance Use: No Hx Substance Use Treatment: No Allergies/Home Meds Allergies/Adverse Reactions: Allergies No Known Allergies Allergy (Verified 04/24/17 13:16) Home Medications: Home Meds Medication Instructions Recorded Confirmed Amlodipine/Valsartan [Exforge 1 tab PO QAM 08/19/14 04/24/17 10-160 mg Tablet] Insulin Lispro [humALOG] 20 units SC ACD 12/23/16 04/24/17 Insulin Lispro [humALOG] 25 units SC ACB 12/23/16 04/24/17 Omeprazole 20 mg PO QAM 12/29/16 04/24/17 Review of Systems - Physician Review All systems were reviewed & negative as marked: Yes - Review of Systems Constitutional: Normal. absent: Fevers, Night Sweats Respiratory: absent: SOB, Cough Cardiovascular: absent: Chest Pain Gastrointestinal: absent: Diarrhea, Nausea, Vomiting Physical Exam Vital Signs Temp Pulse Resp BP Pulse Ox 04/24/17 14:35 62 18 121/42 L 100 04/24/17 12:35 97.4 F L 81 18 121/64 98 Appearance: Positive for: Well-Appearing, Non-Toxic, Comfortable Pain Distress: None Mental Status: Positive for: Alert and Oriented X 3 - Systems Exam Head: Present: Atraumatic, Normocephalic Pupils: Present: PERRL Extroacular Muscles: Present: EOMI Conjunctiva: Present: Normal Mouth: Present: Moist Mucous Membranes Neck: Present: Normal Range of Motion Respiratory/Chest: Present: Clear to Auscultation, Good Air Exchange. No: Respiratory Distress, Accessory Muscle Use Cardiovascular: Present: Regular Rate and Rhythm, Normal S1, S2. No: Murmurs Abdomen: Present: Normal Bowel Sounds. No: Tenderness, Distention, Peritoneal Signs Back: Present: Normal Inspection Upper Extremity: Present: Normal Inspection, NORMAL PULSES. No: Cyanosis, Edema Lower Extremity: Present: Normal Inspection, NORMAL PULSES. No: Edema Neurological: Present: GCS=15, Speech Normal Skin: Present: Warm, Dry, Normal Color. No: Rashes Psychiatric: Present: Alert, Oriented x 3, Normal Insight, Normal Concentration Medical Decision Making - Lab Interpretations Lab Results: 04/24/17 13:50 04/24/17 13:50 Lab Results 04/24/17 13:50: Phosphorus 2.8 04/24/17 13:50: Sodium 140, Chloride 113 H, Potassium 3.8, Carbon Dioxide 17 L, Anion Gap 14, BUN 29 H, Creatinine 1.3, Est GFR ( Amer) 47, Est GFR (Non- Af Amer) 39, Random Glucose 84, Calcium 11.0 H, Total Bilirubin 0.5, AST 19, ALT 15, Alkaline Phosphatase 76, Total Protein 7.6, Albumin 4.2, Globulin 3.4, Albumin/Globulin Ratio 1.2 04/24/17 13:50: WBC 9.4, RBC 3.49 L, Hgb 10.7 L, Hct 31.8 L, MCV 91.1, MCH 30.7 , MCHC 33.6, RDW 15.2 H, Plt Count 330, MPV 10.8, Gran % 70.9 H, Lymph % (Auto) 18.1 L, Walker % (Auto) 9.5 H, Eos % (Auto) 1.1 L, Baso % (Auto) 0.4, Gran # 6.64 H, Lymph # 1.7, Walker # 0.9 H, Eos # 0.1, Baso # 0.04 04/24/17 13:50: pO2 44, VBG pH 7.20 L, VBG pCO2 46.0, VBG HCO3 18.0 L, VBG Total CO2 19.4 L, VBG O2 Sat (Calc) 82.3 H, VBG Base Excess -9.9 L, VBG Potassium 3.8, Sodium 142.0, Chloride 113.0 H, Glucose 84, Lactate 1.8, FiO2 21.0, Venous Blood Potassium 3.8 - Medication Orders Current Medication Orders: Sodium Chloride (Sodium Chloride 0.9%) 1,000 mls @ 100 mls/hr IV .Q10H RAFA Last Admin: 04/24/17 16:19 Dose: 100 mls/hr Insulin Human Regular (Humulin R Med) 0 units SC ACHS RAFA PRN Reason: Protocol Last Admin: 04/24/17 16:33 Dose: Not Given Non-Admin Reason: Blood Sugar Parameter Pantoprazole Sodium (Protonix Ec Tab) 40 mg PO 0600 RAFA Sodium Bicarbonate (Sodium Bicarbonate Tab) 650 mg PO TID RAFA Last Admin: 04/24/17 17:43 Dose: 650 mg - Scribe Statement The provider has reviewed the documentation as recorded by the Rhiannon Patino Provider Scribe Attestation: All medical record entries made by the Scribe were at my direction and personally dictated by me. I have reviewed the chart and agree that the record accurately reflects my personal performance of the history, physical exam, medical decision making, and the department course for this patient. I have also personally directed, reviewed, and agree with the discharge instructions and disposition. Disposition/Present on Arrival - Present on Arrival Any Indicators Present on Arrival: No History of DVT/PE: No History of Uncontrolled Diabetes: No Urinary Catheter: No History Surgical Site Infection Following: None - Disposition Have Diagnosis and Disposition been Completed?: Yes Diagnosis: Metabolic acidosis, S/P right hemicolectomy Disposition: HOSPITALIZED Disposition Time: 17:00 Condition: STABLE
[2017-04-24 13:58] LABS: VENOUS BLOOD GAS BASE EXCESS -9.9 mmol/L (0.0-2.0); VENOUS BLOOD GAS PO2 44 mm/Hg (30-55)
[2017-04-24 14:07] LABS: ALB/GLOB RATIO 1.2 (1.1-1.8); ALBUMIN 4.2 g/dL (3.0-4.8)
[2017-04-24 14:12] LABS: BASO # 0.04 K/mm3 (0.0-2.0); BASO % 0.4 % (0.0-3.0); EOS # 0.1 (0.0-0.7); EOS % 1.1 % (1.5-5.0); GRAN # 6.64 (1.4-6.5); GRAN % 70.9 % (50.0-68.0); HEMOGLOBIN 10.7 gm/dL (12.0-16.0); LYMPH # 1.7 (1.2-3.4); LYMPH % 18.1 % (22.0-35.0); MEAN CELL VOLUME 91.1 fL (80.0-105.0); MEAN CORPUSCULAR HEMOGLOBIN 30.7 pg (25.0-35.0); MEAN CORPUSCULAR HGB CONC 33.6 g/dl (31.0-37.0); MEAN PLATELET VOLUME 10.8 fl (7.0-11.0); MONO # 0.9 (0.1-0.6); MONO % 9.5 % (1.0-6.0); PLATELET COUNT 330 10^3/uL (120.0-450.0); RBC 3.49 10^6/uL (3.5-6.1); RED CELL DISTRIBUTION WIDTH 15.2 % (11.5-14.5); WHITE BLOOD COUNT 9.4 10^3/ul (4.5-11.0)
--- NOTE | 2017-04-24 16:09 | CP.PCM.HP ---
<Rj Perez - Last Filed: 04/24/17 16:03> History of Present Illness - History of Present Illness History of Present Illness: This is an 87 y/o female with hx colon CA s/p right hemicolectomy with side- side anastamosis, hx HTN, IDDM presenting who was sent to the ED by her primary Dr. Ordoñez with abdnormal lab results. Lab results indicate non-gapped acidosis. Patient is asymptomatic. She has no complaints at this time. Patient notes decreased appetite and decreased oral intake since colectomy in December,. Patient reports good urinary output, normal stools without blood. Denies constipation, abdominal pain, n/v/d, chest pain, shortness of breath. Patient is compliant with all medications. She has never seen a steamtable worker. PMH: colon ca, HTN, IDDM PSH: right hemicolectomy FH: non-contributory Social hx: lives with daughter. prior hx smoking - quit >40yrs ago. denies alcohol use. Allergies: NKDA PMD: Tiago Surgeon: Romana Onc: Mary Jane GI: Indra Present on Admission - Present on Admission Any Indicators Present on Admission: No Review of Systems - Constitutional Constitutional: Weight Loss. absent: Chills, Fever - EENT Eyes: Blurred Vision, Change in Vision Nose/Mouth/Throat: Nasal Congestion, Nasal Discharge - Cardiovascular Cardiovascular: Diaphoresis. absent: Chest Pain, Dyspnea - Respiratory Respiratory: absent: Cough, Dyspnea - Gastrointestinal Gastrointestinal: absent: Abdominal Pain, Constipation, Diarrhea, Hematochezia, Melena, Nausea, Vomiting - Genitourinary Genitourinary: absent: Dysuria, Hematuria - Musculoskeletal Musculoskeletal: absent: Back Pain, Neck Pain - Integumentary Integumentary: absent: Pruritus, Rash - Psychiatric Psychiatric: absent: Anxiety, Depression - Endocrine Endocrine: absent: Fatigue, Palpitations Past Patient History - Infectious Disease Hx of Infectious Diseases: None - Tetanus Immunizations Tetanus Immunization: Unknown - Past Social History Smoking Status: Never Smoked - CARDIAC Hx Cardiac Disorders: No Hx Congestive Heart Failure: No Hx Hypertension: Yes - PULMONARY Hx Chronic Obstructive Pulmonary Disease (COPD): No - NEUROLOGICAL HX Cerebrovascular Accident: No - HEENT Hx Cataracts: No Hx Difficulty Chewing: No Hx Epistaxis: No Hx Glaucoma: No Hx Macular Degeneration: No - RENAL Hx Renal Failure: No - ENDOCRINE/METABOLIC Hx Diabetes Mellitus Type 1: No Hx Diabetes Mellitus Type 2: Yes Hx Hypothyroidism: No - HEMATOLOGICAL/ONCOLOGICAL Hx Blood Transfusions: No - INTEGUMENTARY Hx Dermatological Problems: No Hx Basil Cell: No Hx Eczema: No Hx Melanoma: No Hx Psoriasis: No Hx Squamous Cell: No - MUSCULOSKELETAL/RHEUMATOLOGICAL Hx Arthritis: No - GASTROINTESTINAL Hx Gastrointestinal Disorders: Yes (colitis) - GENITOURINARY/GYNECOLOGICAL Hx Genitourinary Disorders: No Hx Reproductive Disorders: No Hx Urinary Tract Infection: Yes (RECENTLY TREATED NOW RESOLVED) - PSYCHIATRIC Hx Emotional Abuse: No Hx Physical Abuse: No Hx Substance Use: No - SURGICAL HISTORY Hx Amputation: No Hx Appendectomy: No Hx Cardiac Catheterization: No Hx Cholecystectomy: No Hx Coronary Stent: No Hx Gastric Bypass Surgery: No Hx Hysterectomy: No Hx Joint Replacement: No Hx Kidney Transplant: No Hx Liver Transplant: No Hx Mastectomy: No Hx Musculoskeletal Surgery: No Hx Open Heart Surgery: No Hx Orthopedic Surgery: No Hx Splenectomy: No Hx Valve Replacement: No - ANESTHESIA Hx Anesthesia Reactions: No Hx Malignant Hyperthermia: No Meds Home Medications: Home Medication List Medication Instructions Recorded Confirmed Type Sodium Bicarbonate Tab 650 mg PO BID #60 tab 04/25/17 Rx Allergies/Adverse Reactions: Allergies Allergy/AdvReac Type Severity Reaction Status Date / Time No Known Allergies Allergy Verified 04/24/17 13:16 Physical Exam - Constitutional Appears: Non-toxic, No Acute Distress - Head Exam Head Exam: ATRAUMATIC, NORMOCEPHALIC - Eye Exam Eye Exam: EOMI, PERRL - ENT Exam ENT Exam: Mucous Membranes Moist - Neck Exam Neck exam: Positive for: Full Rom, Normal Inspection - Respiratory Exam Respiratory Exam: Clear to Auscultation Bilateral. absent: Rales, Rhonchi, Wheezes - Cardiovascular Exam Cardiovascular Exam: REGULAR RHYTHM, +S1, +S2 - GI/Abdominal Exam GI & Abdominal Exam: Normal Bowel Sounds, Soft. absent: Distended, Guarding, Hernia, Tenderness - Extremities Exam Extremities exam: Negative for: calf tenderness, pedal edema - Neurological Exam Neurological exam: Alert, Oriented x3 - Psychiatric Exam Psychiatric exam: Normal Affect, Normal Mood - Skin Skin Exam: Dry, Warm Results - Vital Signs Recent Vital Signs: Last Vital Signs Temp 97.4 F L 04/24/17 12:35 Pulse 62 04/24/17 14:35 Resp 18 04/24/17 14:35 BP 121/42 L 04/24/17 14:35 Pulse Ox 100 04/24/17 14:35 - Labs Result Diagrams: 04/24/17 13:50 04/24/17 13:50 Assessment & Plan - Assessment and Plan (Free Text) Assessment: 87 y/o female presenting with acute renal failure with associated non-anion gap metabolic acidosis. VBG with pH 7.20. Patient is asymptomatic. metabolic acidosis - IVF - nephrology c/s - avoid nephrotoxic meds - repeat VBG hx IDDM - continue home insulin regimen - diabetic diet - fingersticks ACHS hx HTN - continue valsartan, amlodipine hx colon ca - stable - serial abdominal exams PPX - Protonix - scds <Shalini Quick - Last Filed: 05/05/17 13:30> Results - Vital Signs Recent Vital Signs: Last Vital Signs Temp 97.5 F L 04/25/17 07:44 Pulse 70 04/25/17 07:44 Resp 18 04/25/17 07:44 BP 126/55 L 04/25/17 07:44 Pulse Ox 98 04/25/17 07:44 - Labs Result Diagrams: 04/25/17 06:00 04/25/17 06:00 Attending/Attestation - Attestation I have personally seen and examined this patient.: Yes I have fully participated in the care of the patient.: Yes I have reviewed all pertinent clinical information: Yes Notes (Text): 05/05/17 13:27 Attending note: Patient seen and examined with resident in ER. This is a 87 y/o female with hx colon CA s/p right hemicolectomy with side-side anastamosis, hx HTN, IDDM presenting who was sent to the ED by her primary Dr. Ordoñez with abdnormal lab results. ARF: due to pre renal/dehydration. Started on IV fluids. Non-gap metabolic acidosis. Denies any diarrhea. Possibly due to RTA/diabetes related. Started on by mouth bicarbonate. Nephrology evaluation requested. Hypercalcemia; due to dehydration. Rule out hyperparathyroidism, multiple myeloma. Needs workup as outpatient. continue IV fluids. Upon discharge the patient the follow up with PMD Dr. Ordoñez. 05/05/17 13:29
[2017-04-24] MEDS: Sodium Chloride 0.9% 1,000 ML IV SCH (16:19)
[2017-04-24 16:31] LABS: URINE BILIRUBIN NEGATIVE (NEGATIVE); URINE BLOOD SMALL (NEGATIVE); URINE GLUCOSE (UA) NEGATIVE (NEGATIVE); URINE LEUKOCYTE ESTERASE LARGE Leu/uL (NEGATIVE); URINE NITRATE POSITIVE (NEGATIVE); URINE PROTEIN TRACE mg/dL (<30 mg/dL); URINE UROBILINOGEN 0.2 E.U./dL (<1 E.U./dL)
[2017-04-24 16:32] LABS: URINE APPEARANCE CLOUDY (CLEAR); URINE COLOR STRAW (YELLOW)
[2017-04-24] MEDS: Insulin Reg-MEDIUM-Coverage SC SCH ×2 (16:33→22:09)
[2017-04-24 16:36] VITALS: O2SAT 98
[2017-04-24 17:14] LABS: URINE BACTERIA SMALL (NEG); URINE WBC TNTC /hpf (0-6); URINE WHITE BLOOD CELL CAST 0 - 2 /hpf
[2017-04-25] MEDS ORDERED: Pantoprazole 40 mg EC Tab PO SCH (06:00)
[2017-04-25] MEDS: Sodium Chloride 0.9% 1,000 ML IV SCH (06:12)
[2017-04-25 06:15] LABS: HEMOGLOBIN 9.1 gm/dL (12.0-16.0); MEAN CELL VOLUME 90.9 fL (80.0-105.0); MEAN CORPUSCULAR HEMOGLOBIN 29.6 pg (25.0-35.0); MEAN CORPUSCULAR HGB CONC 32.6 g/dl (31.0-37.0); MEAN PLATELET VOLUME 10.8 fl (7.0-11.0); RBC 3.07 10^6/uL (3.5-6.1); RED CELL DISTRIBUTION WIDTH 15.4 % (11.5-14.5); WHITE BLOOD COUNT 6.2 10^3/ul (4.5-11.0)
[2017-04-25 06:24] LABS: BLOOD UREA NITROGEN 23 mg/dL (7-21); CALCIUM 9.6 mg/dL (8.4-10.5); GFR AFRICAN-AMERICAN > 60; GFR NON-AFRICAN AMERICAN 52
[2017-04-25 07:45] VITALS: BP 126/55; PULSE 70; TEMP 97.5
[2017-04-25] MEDS: Insulin Reg-MEDIUM-Coverage SC SCH ×2 (07:57→12:34)
[2017-04-25] MEDS ORDERED: Potassium Chloride 20 mEq ER Tab PO ONE (08:59)
--- NOTE | 2017-04-25 09:03 | CP.PCM.PN ---
<Rj Perez - Last Filed: 04/26/17 16:24> Subjective - Date & Time of Evaluation Date of Evaluation: 04/25/17 Time of Evaluation: 09:01 - Subjective Subjective: Patient seen and examined. NO complaints at this time. No acute events overnight. Patient is tolerating diet. Afebrile. Adequate urine output. Objective - Vital Signs/Intake and Output Vital Signs (last 24 hours): Temp Pulse Resp BP Pulse Ox 97.5 F L 70 18 126/55 L 98 04/25/17 07:44 04/25/17 07:44 04/25/17 07:44 04/25/17 07:44 04/25/17 07:44 Intake and Output: 04/25/17 04/25/17 06:59 18:59 Intake Total 360 2510 Output Total 800 900 Balance -440 1610 - Medications Medications: Current Medications Sodium Chloride (Sodium Chloride 0.9%) 1,000 mls @ 100 mls/hr IV .Q10H [facility] Last Admin: 04/25/17 06:12 Dose: 100 mls/hr Insulin Human Regular (Humulin R Med) 0 units SC ACHS [facility] PRN Reason: Protocol Last Admin: 04/24/17 22:09 Dose: Not Given Pantoprazole Sodium (Protonix Ec Tab) 40 mg PO 0600 [facility] Last Admin: 04/25/17 06:12 Dose: 40 mg Potassium Chloride (K-Dur 20 Meq Er Tab) 40 meq PO ONCE ONE Stop: 04/25/17 09:00 Sodium Bicarbonate (Sodium Bicarbonate Tab) 650 mg PO TID [facility] Last Admin: 04/24/17 17:43 Dose: 650 mg - Labs Labs: 04/25/17 06:00 04/25/17 06:00 - Constitutional Appears: Non-toxic, No Acute Distress - Head Exam Head Exam: ATRAUMATIC, NORMOCEPHALIC - Eye Exam Eye Exam: EOMI, PERRL - ENT Exam ENT Exam: Mucous Membranes Moist - Respiratory Exam Respiratory Exam: Clear to Ausculation Bilateral. absent: Rales, Rhonchi, Wheezes - Cardiovascular Exam Cardiovascular Exam: REGULAR RHYTHM, +S1, +S2 - GI/Abdominal Exam GI & Abdominal Exam: Soft, Normal Bowel Sounds. absent: Tenderness - Extremities Exam Extremities Exam: Full ROM, Pedal Edema. absent: Calf Tenderness - Neurological Exam Neurological Exam: Alert, Awake, Oriented x3 - Psychiatric Exam Psychiatric exam: Normal Affect, Normal Mood - Skin Skin Exam: Dry, Warm Assessment and Plan - Assessment and Plan (Free Text) Assessment: 87 y/o female presenting with acute renal failure with associated non-anion gap metabolic acidosis. VBG with pH 7.20. Patient is asymptomatic. metabolic acidosis - nephrology consulted - Bicarb PO TID - IVF - nephrology c/s - avoid nephrotoxic meds - repeat VBG hx IDDM - continue SSI - diabetic diet - fingersticks ACHS hx HTN - continue valsartan, amlodipine hx colon ca - stable - serial abdominal exams PPX - Protonix - scds <Ember Lundy - Last Filed: 05/01/17 18:11> Objective - Vital Signs/Intake and Output Vital Signs (last 24 hours): Temp Pulse Resp BP Pulse Ox 97.5 F L 70 18 126/55 L 98 04/25/17 07:44 04/25/17 07:44 04/25/17 07:44 04/25/17 07:44 04/25/17 07:44 - Labs Labs: 04/25/17 06:00 04/25/17 06:00 Attending/Attestation - Attestation I have personally seen and examined this patient.: Yes I have fully participated in the care of the patient.: Yes I have reviewed all pertinent clinical information, including history, physical exam and plan: Yes Notes (Text): 05/01/17 18:09 Patient seen and examined at bedside. Denies any new complaints and feels better overall. Medications, labs and notes reviewed. Agree with the plan outlined by the resident,
[2017-04-25 10:00] LABS: VENOUS BLOOD GAS BASE EXCESS -8.7 mmol/L (0.0-2.0); VENOUS BLOOD GAS PO2 36 mm/Hg (30-55); VENOUS BLOOD PH 7.25 (7.32-7.43)
[2017-04-25 14:10] LABS: PH,URINE 6.5 (4.7-8.0); URINE BILIRUBIN NEGATIVE (NEGATIVE); URINE BLOOD TRACE-INTACT (NEGATIVE); URINE GLUCOSE (UA) NEGATIVE (NEGATIVE); URINE LEUKOCYTE ESTERASE LARGE Leu/uL (NEGATIVE); URINE NITRATE NEGATIVE (NEGATIVE); URINE PROTEIN NEGATIVE mg/dL (<30 mg/dL); URINE UROBILINOGEN 0.2 E.U./dL (<1 E.U./dL)
[2017-04-25 14:13] LABS: URINE APPEARANCE CLOUDY (CLEAR); URINE COLOR STRAW (YELLOW)
--- NOTE | 2017-04-25 23:48 | CP.PCM.CON ---
History of Present Illness - History of Present Illness History of Present Illness: Reason for consultation: non anion gap metabolic acidosis, anemia HPI: 87 yr/o lady unknown to me, was admitted 04/24 with complaints of abdominal pain, nausea. She was seen by GI and referred to the ER because of abnormal bloodwork. She was found to have BUN/CR of 29/1.3, also CO2 of 17 hence consultation is requested PMSHX: colon cancer, recent right hemicolectomy, hypertension, NIDDM FHX: NC SHX: no smoking, no alcohol use, no IVDA, lives with family Allergies: NKDA Medications at home: Exforge , insulin, omeprazole ROS: All systems reviewed, pertinent positives as mentioned above, rest unremarkable Physical Exam: Thinly built elderly lady sitting in bed in NAD Vital Signs: reviewed HEENT: NC, AT, + pallor Neck: supple, no JVD Lungs: bilateral equal air entry, non rales CVS: S1 S2 RRR Abdomen: soft, non-distended, tenderness in the epigastrium, bowel sounds present Ext: no lower extremity edema Labs: reviewed Meds: reviewed Assessment and Plan: 1. GAUTAM 2. NAGMA 3. Anemia 4. NIDDM 5. Hypertension 6. Colon Cancer Resolved GAUTAM, pre-renal azotemia, improving metabolic acidosis. Suspect all largely secondary to dehydration. Patient does have NAGMA, anemia and was hypercalcemic at the time of admission. Need to rule out multiple myeloma. Recommend checking UAG, SPEP, UIF. No objection to discharge. Will workup as outpatient. Thank you for the courtesy of this consultation. Past Patient History - Infectious Disease Hx of Infectious Diseases: None - Tetanus Immunizations Tetanus Immunization: Unknown - Past Social History Smoking Status: Never Smoked - CARDIAC Hx Cardiac Disorders: No Hx Congestive Heart Failure: No Hx Hypertension: Yes - PULMONARY Hx Chronic Obstructive Pulmonary Disease (COPD): No - NEUROLOGICAL HX Cerebrovascular Accident: No - HEENT Hx Cataracts: No Hx Difficulty Chewing: No Hx Epistaxis: No Hx Glaucoma: No Hx Macular Degeneration: No - RENAL Hx Renal Failure: No - ENDOCRINE/METABOLIC Hx Diabetes Mellitus Type 1: No Hx Diabetes Mellitus Type 2: Yes Hx Hypothyroidism: No - HEMATOLOGICAL/ONCOLOGICAL Hx Blood Transfusions: No - INTEGUMENTARY Hx Dermatological Problems: No Hx Basil Cell: No Hx Eczema: No Hx Melanoma: No Hx Psoriasis: No Hx Squamous Cell: No - MUSCULOSKELETAL/RHEUMATOLOGICAL Hx Arthritis: No - GASTROINTESTINAL Hx Gastrointestinal Disorders: Yes (colitis) - GENITOURINARY/GYNECOLOGICAL Hx Genitourinary Disorders: No Hx Reproductive Disorders: No Hx Urinary Tract Infection: Yes (RECENTLY TREATED NOW RESOLVED) - PSYCHIATRIC Hx Emotional Abuse: No Hx Physical Abuse: No Hx Substance Use: No - SURGICAL HISTORY Hx Amputation: No Hx Appendectomy: No Hx Cardiac Catheterization: No Hx Cholecystectomy: No Hx Coronary Stent: No Hx Gastric Bypass Surgery: No Hx Hysterectomy: No Hx Joint Replacement: No Hx Kidney Transplant: No Hx Liver Transplant: No Hx Mastectomy: No Hx Musculoskeletal Surgery: No Hx Open Heart Surgery: No Hx Orthopedic Surgery: No Hx Splenectomy: No Hx Valve Replacement: No - ANESTHESIA Hx Anesthesia Reactions: No Hx Malignant Hyperthermia: No Meds Home Medications: Home Medication List Medication Instructions Recorded Confirmed Type Sodium Bicarbonate Tab 650 mg PO BID #60 tab 04/25/17 Rx Allergies/Adverse Reactions: Allergies Allergy/AdvReac Type Severity Reaction Status Date / Time No Known Allergies Allergy Verified 04/24/17 13:16 Results - Vital Signs Recent Vital Signs: Last Vital Signs Temp 97.5 F L 04/25/17 07:44 Pulse 70 04/25/17 07:44 Resp 18 04/25/17 07:44 BP 126/55 L 04/25/17 07:44 Pulse Ox 98 04/25/17 07:44 - Labs Result Diagrams: 04/25/17 06:00 04/25/17 06:00 Labs: Laboratory Results - last 24 hr 04/25/17 04/25/17 04/25/17 06:00 06:00 06:00 WBC 6.2 D RBC 3.07 L Hgb 9.1 L Hct 27.9 L MCV 90.9 MCH 29.6 MCHC 32.6 RDW 15.4 H Plt Count 307 MPV 10.8 pO2 VBG pH VBG pCO2 VBG HCO3 VBG O2 Sat (Calc) VBG Base Excess Sodium 143 Potassium 3.5 L Chloride 118 H Carbon Dioxide 17 L Anion Gap 12 BUN 23 H Creatinine 1.0 Est GFR ( Amer) > 60 Est GFR (Non-Af Amer) 52 POC Glucose (mg/dL) Random Glucose 95 Calcium 9.6 25-OH Vitamin D Total 19.2 L Urine Color Urine Appearance Urine pH Ur Specific [place] Urine Protein Urine Glucose (UA) Urine Ketones Urine Blood Urine Nitrate Urine Bilirubin Urine Urobilinogen Ur Leukocyte Esterase 04/25/17 04/25/17 04/25/17 07:13 09:55 11:24 WBC RBC Hgb Hct MCV MCH MCHC RDW Plt Count MPV pO2 36 VBG pH 7.25 L VBG pCO2 41.0 VBG HCO3 18.0 L VBG O2 Sat (Calc) 73.4 H VBG Base Excess -8.7 L Sodium Potassium Chloride Carbon Dioxide Anion Gap BUN Creatinine Est GFR ( Amer) Est GFR (Non-Af Amer) POC Glucose (mg/dL) 121 H 272 H Random Glucose Calcium 25-OH Vitamin D Total Urine Color Urine Appearance Urine pH Ur Specific [place] Urine Protein Urine Glucose (UA) Urine Ketones Urine Blood Urine Nitrate Urine Bilirubin Urine Urobilinogen Ur Leukocyte Esterase 04/25/17 13:50 WBC RBC Hgb Hct MCV MCH MCHC RDW Plt Count MPV pO2 VBG pH VBG pCO2 VBG HCO3 VBG O2 Sat (Calc) VBG Base Excess Sodium Potassium Chloride Carbon Dioxide Anion Gap BUN Creatinine Est GFR ( Amer) Est GFR (Non-Af Amer) POC Glucose (mg/dL) Random Glucose Calcium 25-OH Vitamin D Total Urine Color Straw Urine Appearance Cloudy Urine pH 6.5 Ur Specific [place] 1.010 Urine Protein Negative Urine Glucose (UA) Negative Urine Ketones Negative Urine Blood Trace-intact H Urine Nitrate Negative Urine Bilirubin Negative Urine Urobilinogen 0.2 Ur Leukocyte Esterase Large H
[2017-04-26 00:44] LABS: URINE BACTERIA MANY (NEG); URINE EPITHELIAL CELLS 0 - 2 /hpf (0-5); URINE RBC 0 - 2 /hpf (0-2)
== END 2017-04-25 14:35 | disposition home or self-care (01) ==
LOC: ED 12:34 → ERH 14:37 → 3RNO 15:46
PROVIDERS: ADMIT Internal Medicine; ATTEND Internal Medicine
DX: E87.2 Acidosis (principal); N17.9 Acute kidney failure, unspecified; E11.9 Type 2 diabetes mellitus without complications; I10 Essential (primary) hypertension; D64.9 Anemia, unspecified; Z79.4 Long term (current) use of insulin; Z85.038 Personal history of other malignant neoplasm of large intestine; Z90.49 Acquired absence of other specified parts of digestive tract
CPT/HCPCS: 36415; 80048; 80053; 81001; 82306; 82436; 82570; 82803; 82948; 83970; 84100; 84132; 84300; 85025; 85027; 99283; G0378; J7040

== ENCOUNTER 2017-10-26 22:35 | Observation (INO) | payer MEDICARE, OTHER ==
[2017-10-26] MEDS ORDERED: Dextrose 50% SYRINGE Inj (50 ml) IVP ONE (23:06)
--- NOTE | 2017-10-26 23:12 | ED PDOC ---
Arrival/HPI - General Chief Complaint: High Blood Pressure Time Seen by Provider: 10/26/17 22:37 Historian: Patient, Family - History of Present Illness Narrative History of Present Illness (Text): 10/26/17 23:02 Zulay Sy is an 87 year old female, whose past medical history includes colon cancer s/p right hemicolectomy, TIA, hypertension, and insulin dependent diabetes, who presents to the Emergency department brought in by EMS accompanied by family for dizziness. Relative states she heard a thump in patient's apartment earlier tonight and went to check on the patient. Relative noted patient was unsteady while walking with associated dizziness and some slurred speech. Relative notes patient's symptoms have improved. Fingerstick in ER was < 46. Patient is alert, oriented x3, reports she feels fine. Patient denies any fever, chills, chest pain, shortness of breath, nausea, vomiting, diarrhea, urinary symptoms, back pain, neck pain, or any other complaints. PMD: Dr. Tiago Ceballos/Onc: Dr. Hinton Time/Duration: Other (today) Symptom Onset: Gradual Symptom Course: Improving Activities at Onset: Light Context: Home Past Medical History - Provider Review Nursing Documentation Reviewed: Yes - Infectious Disease Hx of Infectious Diseases: None - Tetanus Immunization Tetanus Immunization: Unknown - Cardiac Hx Cardiac Disorders: Yes Hx Hypertension: Yes - Pulmonary Hx Respiratory Disorders: No - Neurological Hx Neurological Disorder: Yes Hx Dizziness: Yes - HEENT Hx HEENT Disorder: No - Renal Hx Renal Disorder: No - Endocrine/Metabolic Hx Diabetes Mellitus Type 2: Yes - Hematological/Oncological Hx Blood Disorders: No - Integumentary Hx Dermatological Disorder: No - Musculoskeletal/Rheumatological Hx Musculoskeletal Disorders: No Hx Falls: No - Gastrointestinal Hx Gastrointestinal Disorders: No - Genitourinary/Gynecological Hx Genitourinary Disorders: No - Psychiatric Hx Psychophysiologic Disorder: No Hx Substance Use: No - Past Surgical History Past Surgical History: No Previous - Surgical History Other/Comment: colectomy - Anesthesia Hx Anesthesia Reactions: No Hx Malignant Hyperthermia: No - Suicidal Assessment Feels Threatened In Home Enviroment: No Family/Social History - Physician Review Nursing Documentation Reviewed: Yes Family/Social History: Unknown Family HX Smoking Status: Former Smoker Hx Alcohol Use: No Hx Substance Use: No Hx Substance Use Treatment: No Allergies/Home Meds Allergies/Adverse Reactions: Allergies No Known Allergies Allergy (Verified 04/24/17 13:16) Home Medications: Home Meds Medication Instructions Recorded Confirmed Insulin Lispro [humALOG] 15 units SC HS 12/23/16 10/26/17 Insulin Lispro [humALOG] 25 units SC DAILY 12/23/16 10/26/17 Omeprazole 20 mg PO QAM 12/29/16 10/26/17 Benzonatate [Tessalon Perles] 100 mg PO TID 09/04/17 10/26/17 Hydrocodone/Chlorpheniramine 5 ml PO Q12 PRN 09/04/17 10/26/17 [Tussionex] Levofloxacin [Levaquin] 250 mg PO DAILY 09/04/17 10/26/17 Spironolactone [Aldactone] 25 mg PO BID 09/04/17 10/26/17 Valsartan [Diovan] 320 mg PO DAILY 09/04/17 10/26/17 amLODIPine [Norvasc] 5 mg PO DAILY 09/04/17 10/26/17 traMADol [Ultram] 50 mg PO BID 09/04/17 10/26/17 Review of Systems - Physician Review All systems were reviewed & negative as marked: Yes - Review of Systems Constitutional: Normal. absent: Fevers Eyes: Normal ENT: Normal Respiratory: Normal. absent: SOB, Cough Cardiovascular: Normal. absent: Chest Pain Gastrointestinal: Normal. absent: Abdominal Pain, Diarrhea, Nausea, Vomiting Genitourinary Female: Normal. absent: Dysuria, Frequency, Hematuria, Urine Output Changes Musculoskeletal: Normal. absent: Back Pain, Neck Pain Skin: Normal. absent: Rash Neurological: Dizziness, Gait Changes (+unstead gait), Speech Changes Endocrine: Normal Hemo/Lymphatic: Normal Psychiatric: Normal Physical Exam Vital Signs Reviewed: Yes Vital Signs Pulse Resp BP Pulse Ox 10/27/17 04:44 64 18 120/39 L 95 10/27/17 03:29 61 18 85/42 L 98 10/27/17 01:13 89 176/82 H 10/27/17 00:11 86 18 185/86 H 99 10/26/17 22:44 112 H 18 222/84 H 99 Temperature: Afebrile Blood Pressure: Hypertensive Pulse: Regular Respiratory Rate: Normal Appearance: Positive for: Well-Appearing, Non-Toxic, Comfortable Pain Distress: None Mental Status: Positive for: Alert and Oriented X 3 - Systems Exam Head: Present: Atraumatic, Normocephalic Pupils: Present: PERRL Extroacular Muscles: Present: EOMI Conjunctiva: Present: Normal Mouth: Present: Moist Mucous Membranes Neck: Present: Normal Range of Motion. No: Meningeal Signs, MIDLINE TENDERNESS , Paraspinal Tenderness Respiratory/Chest: Present: Clear to Auscultation, Good Air Exchange. No: Respiratory Distress, Accessory Muscle Use Cardiovascular: Present: Regular Rate and Rhythm, Normal S1, S2. No: Murmurs Abdomen: Present: Normal Bowel Sounds. No: Tenderness, Distention, Peritoneal Signs Back: Present: Normal Inspection. No: CVA Tenderness, Midline Tenderness, Paraspinal Tenderness Upper Extremity: Present: Normal Inspection, Normal ROM, NORMAL PULSES, Neurovascularly Intact, Capillary Refill < 2s. No: Cyanosis, Edema, Tenderness , Swelling, Erythema, Temperature Abnormalties, Deformity Lower Extremity: Present: Normal Inspection, NORMAL PULSES, Normal ROM, Neurovascularly Intact, Capillary Refill < 2 s. No: Edema, Cyanosis, Tenderness , Swelling, Erythema, Deformity, Temperature Abnormalties Neurological: Present: GCS=15, CN II-XII Intact, Speech Normal, Motor Func Grossly Intact, Normal Sensory Function, Normal Cerebellar Funct, Memory Normal Skin: Present: Warm, Dry, Normal Color. No: Rashes Psychiatric: Present: Alert, Oriented x 3, Normal Insight, Normal Concentration Medical Decision Making ED Course and Treatment: 10/26/17 23:02 Impression: 87 year old female complaining of dizziness, unsteady gait, and slurred speech tonight. Differential Diagnosis included but are not limited to: hypoglycemia vs. electrolyte abnormality vs. TIA Plan: -- CT Head w/o contrast -- EKG -- Chest X-ray -- Labs, cardiac enzymes -- D50 -- D5W -- Reassess and disposition Prior Visits: Notes and results from previous visits were reviewed. On 09/04/2017, pt was seen in the Emergency department for near-syncope, slurred speech, headache, and abdominal pain. Pt was admitted to the hospital for further evaluation. Progress Notes: 10/26/17 23:58 CT Head shows: Brain: Moderate atrophy. No intracranial hemorrhage. No mass. 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 Few scattered foci of decreased attenuation within periventricular/subcortical white matter. No definite edema. Ventricles: No hydrocephalus. Bones/joints: No acute fracture. Soft tissues: Unremarkable. Vasculature: Atherosclerotic disease of intracranial arteries. Few foci of air about cavernous sinus, nonspecific but possibly iatrogenic. Sinuses: Mild focal mucosal thickening +/- fluid of LEFT sphenoid sinus. Mastoid air cells: No mastoid effusion. Orbits: Unremarkable as visualized. IMPRESSION: 1. Nonspecific white matter changes. Acute infarction may be CT occult within first 24 hours. If a focal deficit persists, consider followup CT or MRI for further evaluation. 2. Incidental/non-acute findings are described above. 10/27/17 00:16 Chest X-ray reviewed, shows no acute processes. 10/27/17 00:[address] Hanson, covering for Dr. Loera, who is aware and agrees with plan. Pt will go to Telemetry observation for intractable hypoglycemia and near syncope under Dr. Hanson's service. 10/27/17 01:03 Reviewed EKG, NSR at 86 bpm. Septal infarct. Non-specific ST/T wave changes. - Lab Interpretations Lab Results: 10/26/17 23:00 10/26/17 23:00 Lab Results 10/26/17 23:04: POC Glucose (mg/dL) 46 L 10/26/17 23:00: WBC 15.5 H D, RBC 3.81, Hgb 12.1 D, Hct 36.6, MCV 96.1, MCH 31.8, MCHC 33.1, RDW 13.6, Plt Count 302, MPV 11.5 H 10/26/17 23:00: Sodium 139, Potassium 4.2, Chloride 103, Carbon Dioxide 23, Anion Gap 17, BUN 24 H, Creatinine 1.2, Est GFR ( Amer) 51, Est GFR (Non- Af Amer) 42, Random Glucose 67 L, Calcium 10.4, Total Bilirubin 0.4, AST 36, ALT 24, Alkaline Phosphatase 97, Lactate Dehydrogenase 537, Total Creatine Kinase 110, Troponin I 0.08 D, Total Protein 8.5 H, Albumin 4.8, Globulin 3.7, Albumin/Globulin Ratio 1.3 10/26/17 23:00: PT 11.0, INR 1.01, APTT 30.1 I have reviewed the lab results: Yes - RAD Interpretation Radiology Orders: 10/26/17 23:05 HEAD W/O CONTRAST [CT] Stat CHEST PORTABLE [RAD] Stat Religious Education Teacher: ED Physician, Radiologist - EKG Interpretation Interpreted by ED Physician: Yes Type: 12 lead EKG - Medication Orders Current Medication Orders: Amlodipine Besylate (Norvasc) 5 mg PO DAILY [facility] Aspirin (Aspirin Chewable) 81 mg PO DAILY [facility] Dextrose (Dextrose 5% In Water 1000 Ml) 1,000 mls @ 100 mls/hr IV .Q10H [facility] Last Admin: 10/26/17 23:58 Dose: 100 mls/hr eMAR Start Stop Document 10/26/17 23:58 AD (Rec: 10/26/17 23:58 AD [id number]) Intravenous Solution Start Date 10/26/17 Start Time 23:58 Pantoprazole Sodium (Protonix Ec Tab) 40 mg PO 0600 [facility] Potassium Chloride (K-Dur 20 Meq Er Tab) 20 meq PO DAILY [facility] Spironolactone (Aldactone) 25 mg PO BID [facility] Tramadol HCl (Ultram) 50 mg PO BID [facility] Valsartan (Diovan) 320 mg PO DAILY [facility] Discontinued Medications Clonidine HCl (Catapres) 0.2 mg PO STAT STA Stop: 10/27/17 00:57 Last Admin: 10/27/17 01:13 Dose: 0.2 mg MAR Pulse and Blood Pressure Document 10/27/17 01:13 AD (Rec: 10/27/17 01:13 AD [id number]) Pulse Pulse Rate (60-90) 89 Blood Pressure Blood Pressure (100/60-150/90) 176/82 Dextrose (Dextrose 50% Inj) 50 ml IVP ONCE ONE Stop: 10/26/17 23:07 Last Admin: 10/26/17 23:14 Dose: 50 ml IVP Administration Document 10/26/17 23:14 AD (Rec: 10/26/17 23:14 AD [id number]) Charges for Administration # of IVP Administrations 1 - Scribe Statement The provider has reviewed the documentation as recorded by the Scribe Provider Attestation: Katie Cat Provider Scribe Attestation: All medical record entries made by the Scribe were at my direction and personally dictated by me. I have reviewed the chart and agree that the record accurately reflects my personal performance of the history, physical exam, medical decision making, and the department course for this patient. I have also personally directed, reviewed, and agree with the discharge instructions and disposition. Disposition/Present on Arrival - Present on Arrival Any Indicators Present on Arrival: No History of DVT/PE: No History of Uncontrolled Diabetes: No Urinary Catheter: No History of Decub. Ulcer: No History Surgical Site Infection Following: None - Disposition Have Diagnosis and Disposition been Completed?: Yes Diagnosis: Near syncope, Hypoglycemia Disposition: HOSPITALIZED Disposition Time: 00:55 Condition: STABLE
[2017-10-26 23:23] LABS: MEAN CELL VOLUME 96.1 fl (80.0-105.0); MEAN CORPUSCULAR HEMOGLOBIN 31.8 pg (25.0-35.0); MEAN CORPUSCULAR HGB CONC 33.1 g/dl (31.0-37.0); MEAN PLATELET VOLUME 11.5 fl (7.0-11.0); RBC 3.81 10^6/uL (3.5-6.1); RED CELL DISTRIBUTION WIDTH 13.6 % (11.5-14.5); WHITE BLOOD COUNT 15.5 10^3/ul (4.5-11.0)
[2017-10-26 23:26] LABS: ALBUMIN 4.8 g/dL (3.0-4.8); CALCIUM 10.4 mg/dL (8.4-10.5)
[2017-10-26 23:35] LABS: INR 1.01 (0.93-1.08); PARTIAL THROMBOPLASTIN TIME 30.1 Seconds (25.1-36.5)
[2017-10-26 23:38] LABS: HEMOGLOBIN 12.1 g/dL (12.0-16.0); TROPONIN I 0.08 ng/mL
--- NOTE | 2017-10-26 23:54 | CT ---
EXAM: CT Head Without Intravenous Contrast CLINICAL HISTORY: 87 years old, female; Signs and symptoms; Dizziness; Additional info: Dizzy TECHNIQUE: Axial computed tomography images of the head/brain without intravenous contrast. All CT scans at this facility use one or more dose reduction techniques, viz.: automated exposure control; ma/kV adjustment per patient size (including targeted exams where dose is matched to indication; i.e. head); or iterative reconstruction technique. COMPARISON: CT - HEAD W/O CONTRAST 2017-09-04 19:15 FINDINGS: Brain: Moderate atrophy. No intracranial hemorrhage. No mass. 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 Few scattered foci of decreased attenuation within periventricular/subcortical white matter. No definite edema. Ventricles: No hydrocephalus. Bones/joints: No acute fracture. Soft tissues: Unremarkable. Vasculature: Atherosclerotic disease of intracranial arteries. Few foci of air about cavernous sinus, nonspecific but possibly iatrogenic. Sinuses: Mild focal mucosal thickening +/- fluid of LEFT sphenoid sinus. Mastoid air cells: No mastoid effusion. Orbits: Unremarkable as visualized. IMPRESSION: 1. Nonspecific white matter changes. Acute infarction may be CT occult within first 24 hours. If a focal deficit persists, consider followup CT or MRI for further evaluation. 2. Incidental/non-acute findings are described above.
[2017-10-27 00:24] LABS: ALB/GLOB RATIO 1.3 (1.1-1.8)
[2017-10-27 01:19] LABS: URINE BILIRUBIN NEGATIVE (NEGATIVE); URINE BLOOD SMALL (NEGATIVE); URINE GLUCOSE (UA) 500 mg/dL (NEGATIVE); URINE LEUKOCYTE ESTERASE NEGATIVE Leu/uL (NEGATIVE); URINE NITRATE NEGATIVE (NEGATIVE); URINE PROTEIN 30 mg/dL (<30 mg/dL); URINE UROBILINOGEN 0.2 E.U./dL (<1 E.U./dL)
[2017-10-27 01:32] LABS: URINE APPEARANCE CLEAR (CLEAR); URINE COLOR YELLOW (YELLOW)
[2017-10-27] MEDS: Pantoprazole 40 mg EC Tab PO SCH (07:06)
--- NOTE | 2017-10-27 08:37 | RAD ---
HISTORY: dizzy COMPARISON: 09/04/2017 FINDINGS: LUNGS: No active pulmonary disease. PLEURA: No significant pleural effusion identified, no pneumothorax apparent. CARDIOVASCULAR: Normal. OSSEOUS STRUCTURES: No significant abnormalities. VISUALIZED UPPER ABDOMEN: Normal. OTHER FINDINGS: None. IMPRESSION: No active disease.
[2017-10-27] MEDS: Potassium Chloride 20 mEq ER Tab PO SCH (09:34)
--- NOTE | 2017-10-27 09:45 | CARD ---
APPROVED REPORT EKG Measurement Heart [id number] <Conclusion> Normal sinus rhythm Septal infarct, age undetermined Abnormal ECG
[2017-10-27] MEDS ORDERED: Influenza Vaccine 60 mcg/0.5 mL SYR (4YR UP) IM ONE (16:09)
[2017-10-27] MEDS ORDERED: Pneumococcal 23-Valent Vaccine IM ONE (16:09)
[2017-10-27 16:10] VITALS: BMI 18.8
--- NOTE | 2017-10-27 23:53 | HP ---
DATE: 10/27/2017 HISTORY OF PRESENT ILLNESS: Ms. Sy is an 87-year-old female brought to the Emergency Department with dizziness, unsteady gait, shortness of breath, slurring of speech, dizziness. Fingerstick was found to be less than 46. She was given D50 in the ER. CAT scan of the head done in the ER is unremarkable. She had similar episode in 08/2017 also. She has history of colon cancer, in remission. History of TIA in the past, diabetes mellitus type 2, currently on insulin, multiple episodes of hypoglycemia. Hypertension, uncontrolled with current medication. PAST MEDICAL HISTORY: Diabetes mellitus type 2; colon cancer; hypertension uncontrolled; hypoglycemia, multiple episodes; TIA, multiple. PAST SURGICAL HISTORY: Right hemicolectomy. SOCIAL HISTORY: Lives at home with son. PERSONAL HISTORY: Former smoker. No history of alcohol abuse. FAMILY HISTORY: Noncontributory. ALLERGIES: NO KNOWN DRUG ALLERGIES. HOME MEDICATIONS: Insulin, lispro, omeprazole 20 mg daily, Tussionex, levofloxacin 250 mg daily, Diovan 320 mg p.o. daily, amlodipine, Norvasc 5 mg daily, and tramadol 50 mg p.o. b.i.d. REVIEW OF SYSTEMS: As per HPI. A 12-point review of systems reviewed negative. PHYSICAL EXAMINATION: GENERAL: Comfortable in bed, in no acute distress. VITAL SIGNS: Temperature 98.7, heart rate is 112 initially in the ER, blood pressure 222/84, decrease to 120/39 and repeat pulse ox is 99% on room air. HEENT: Pallor positive. NECK: Supple. CHEST: Air entry present equal bilateral. No added sound. CARDIOVASCULAR: S1 and S2 normal. No murmur, no gallop. ABDOMEN: Soft, nontender. No hepatosplenomegaly. EXTREMITIES: No edema. LABORATORY DATA: White count 15.5, hemoglobin 12.1, hematocrit 36.6, platelet count 302. Sodium 139, potassium 4.2, BUN 24, creatinine 1.2, glucose 67, troponin 0.08. Glucose 67 in the ER. ASSESSMENT: 1. Transient ischemic attack. 2. Uncontrolled hypertension. 3. Multiple episodes of hypoglycemia. 4. History of colon cancer, in remission. PLAN: She will be admitted to telemonitoring. We will hold the insulin, do the fingerstick check. Continue Diovan, losartan 320 mg daily, Ultram 50 mg p.o. b.i.d., Aldactone 25 mg p.o. b.i.d., Protonix 40 mg daily, dextrose in water 800 mL an hour, aspirin 81 mg daily, we will do Norvasc 5 mg daily. We will continue to monitor fingerstick and Urology consultation, Dr. Del Valle, requested. I will get Cardiology consultation . We will monitor the blood pressure, better control of blood pressure, which are currently better on current medications. We will continue telemonitoring. Elevated troponin likely due to uncontrolled hypotension in the ER. We will get a new set of troponin in the morning. Discussed with the family at length and with daughter and son at bedside. The patient wants to go home today, but family is concerned that she has recurrent episodes in recent past. She had MRI of the brain recently. We will review the MRI. Mag Hanson MD
[2017-10-28 02:35] VITALS: O2SAT 97
[2017-10-28] MEDS: Pantoprazole 40 mg EC Tab PO SCH (05:37)
--- NOTE | 2017-10-28 09:47 | PN ---
DATE: 10/28/2017 SUBJECTIVE: The patient has no complaints. PHYSICAL EXAMINATION: VITAL SIGNS: Temperature is 98.9, pulse of 63, blood pressure 120/48, and respirations 18. GENERAL: The patient is lying in bed, flat, comfortable. HEENT: No oral lesion. Anicteric sclerae. Moist mucosa. NECK: No JVD, adenopathy, or thyromegaly. CARDIOVASCULAR: S1 and S2, regular. No murmurs, rubs, or gallops. LUNGS: Clear to auscultation bilaterally. No wheeze, rales, or rhonchi. ABDOMEN: Bowel sounds are positive, soft, nontender and nondistended. EXTREMITIES: No cyanosis, clubbing or edema. LABORATORY DATA: Labs have been reviewed. ASSESSMENT: 1. CT of the head done shows nonspecific white matter changes, acute infarct may be CT occult within the first 24 hours. 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 2. Right transient ischemic attack. 3. Hypertension. 4. History of hypoglycemia. 5. Colon cancer in remission. PLAN: The patient's sugars are better controlled. She had been on insulin as an outpatient. The patient on IV dextrose. She is on Aldactone. She will continue. She is on losartan for hypertension. She is on Norvasc for her hypertension. She is receiving Protonix daily. She is on a heart healthy diet. Her syncope or near syncope was most likely from hypoglycemia. She may be taking too much of her insulin. John Loera MD
[2017-10-28] MEDS: Potassium Chloride 20 mEq ER Tab PO SCH (09:53)
--- NOTE | 2017-10-28 15:33 | CARD ---
APPROVED REPORT EXAM: Two-dimensional and M-mode echocardiogram with Doppler and color Doppler. INDICATION Syncope R/O 2D DIMENSIONS Left Atrium (2D)3.9 (1.6-4.0cm)IVSd1.2 (0.7-1.1cm) LVDd4.0 (3.9-5.9cm)PWd0.8 (0.7-1.1cm) LVDs2.4 (2.5-4.0cm)FS (%) 38.5 % LVEF (%)69.5 (>50%) M-Mode DIMENSIONS Aortic Root2.70 (2.2-3.7cm)Aortic Cusp Exc.1.50 (1.5-2.0cm) Aortic Valve AoV Peak Andqemrg261.0cm/Tony Peak GR.13mmHg Mitral Valve MV E Sjmkkquj108.0cm/sMV A Qhgqmepo17.1cm/sE/A ratio1.2 TDI E/Lateral E'0.0E/Medial E'0.0 Tricuspid Valve TR Peak [id number]/sRAP [id number] Peak Gr.35mmHg [id number] LEFT VENTRICLE The left ventricle is normal size. There is mild concentric left ventricular hypertrophy. The left ventricular function is normal. The left ventricular ejection fraction is within the normal range. There is normal LV segmental wall motion. RIGHT VENTRICLE The right ventricle is normal size. The right ventricular systolic function is normal. ATRIA The left atrium size is normal. The right atrium size is normal. The interatrial septum is intact with no evidence for an atrial septal defect. AORTIC VALVE The aortic valve is mildly sclerotic. No aortic regurgitation is present. There is no aortic valvular stenosis. MITRAL VALVE The mitral valve is normal in structure. Mitral regurgitation is mild. TRICUSPID VALVE The tricuspid valve is normal in structure. There is mild tricuspid regurgitation. PULMONIC VALVE The pulmonary valve is normal in structure. GREAT VESSELS The aortic root is normal in size. The IVC is normal in size and collapses >50% with inspiration. PERICARDIAL EFFUSION There is no pleural effusion. There is no pericardial effusion. <Conclusion> Normal chamber size. Normal LV systolic function. Mild concentric LVH. Mild MR and TR.
[2017-10-28 17:17] VITALS: BP 120/56; PULSE 80; RESP 20; TEMP 97.8
[2017-10-28 18:27] LABS: BASO # 0.03 K/mm3 (0.0-2.0); BASO % 0.4 % (0.0-3.0); EOS # 0.3 (0.0-0.7); EOS % 4.1 % (1.5-5.0); GRAN # 4.34 (1.4-6.5); GRAN % 55.1 % (50.0-68.0); HEMOGLOBIN 10.2 g/dL (12.0-16.0); LYMPH # 2.1 (1.2-3.4); MEAN CELL VOLUME 96.6 fl (80.0-105.0); MEAN CORPUSCULAR HEMOGLOBIN 31.1 pg (25.0-35.0); MEAN CORPUSCULAR HGB CONC 32.2 g/dl (31.0-37.0); MEAN PLATELET VOLUME 11.6 fl (7.0-11.0); MONO # 1.1 (0.1-0.6); MONO % 13.4 % (1.0-6.0); RBC 3.28 10^6/uL (3.5-6.1); RED CELL DISTRIBUTION WIDTH 13.8 % (11.5-14.5); WHITE BLOOD COUNT 7.9 10^3/ul (4.5-11.0)
[2017-10-28 18:40] LABS: CALCIUM 9.8 mg/dL (8.4-10.5)
--- NOTE | 2017-10-28 23:03 | CON ---
DATE: HISTORY OF PRESENT ILLNESS: This is an 87-year-old white female with past medical history of diabetes type 2, hypertension, hypoglycemia, TIA, and colon cancer. PAST MEDICAL/SURGICAL HISTORY: Right hemicolectomy. ALLERGIES: NO KNOWN DRUG ALLERGIES. HOME MEDICATIONS: Insulin, Lispro, omeprazole, Diovan, amlodipine, Norvasc, Tramadol. REVIEW OF SYSTEMS: A 10-point review of system was negative except headache. PHYSICAL EXAMINATION: HEENT: Normocephalic, atraumatic. NECK: Supple. NEUROLOGIC: Alert, awake, and oriented to self and place. No aphasia. Cranial nerves II through XII are tested. Pupils reactive. Bilateral iridectomy. No facial asymmetry. Tongue midline. Motor examination: Moves all the extremities equally. Tone normal. Deep tendon reflexes 1+. Both plantars are downgoing. Sensory appears intact. Cerebellar, gait deferred. IMPRESSION AND PLAN: Transient ischemic attack and uncontrolled hypertension, headache, dizziness off and on. Continue present management and start her on Fioricet one q. 8 hours p.r.n., and CAT scan of the head was negative. Carotid Doppler is pending. Continue present management. We will follow up. Nacho Del Valle MD
--- NOTE | 2017-10-29 02:28 | CON ---
DATE: 10/28/2017 REQUESTING PHYSICIAN: Dr. Hanson. REASON FOR CONSULTATION: Elevated troponin, near syncope. HISTORY OF PRESENT ILLNESS: This is an 87-year-old woman with history of diabetes, hypertension as well as TIAs in the past, who was brought to the emergency room with lightheadedness and unsteady gait. She reported also has some slurring of her speech and dyspnea. She was noted to be hypoglycemic in the emergency room. She has seen on remote telemetry. She is currently comfortable and feels back to normal and would like to go home as soon as possible. She apparently was admitted with similar episode in 08/2017. CT of the head was unremarkable. PAST HISTORY: Notable for the problems as mentioned above. She has had colon cancer, for which she underwent surgery. MEDICATIONS AT HOME: Included spironolactone 25 mg b.i.d., aspirin, Diovan 320 mg daily, insulin, potassium, and amlodipine 5 mg daily. ALLERGIES: NONE. SOCIAL HISTORY: She is , lives with her son. She is a former smoker. She denies alcohol use. FAMILY HISTORY: Both parents are , cause unknown. REVIEW OF SYSTEMS: A 10-point review of systems is notable mainly for problems as mentioned above. PHYSICAL EXAMINATION: GENERAL: She is a very elderly woman, appears comfortable at the present time. VITAL SIGNS: Her blood pressure is 154/60 with a pulse of 64 in sinus with PVCs noted, respirations are 16. She is afebrile. HEENT: Normocephalic, atraumatic. Bilateral carotid bruits are noted. CHEST: Bilateral scattered rhonchi. HEART: Her PMI displaced laterally with systolic murmur noted at the base and apex. ABDOMEN: Soft and nontender with normoactive bowel sounds. EXTREMITIES: No clubbing, cyanosis, or edema. SKIN: Warm and dry. PSYCHIATRIC: Normal mood and affect. NEUROLOGIC: No gross motor or sensory is appreciable. LABORATORY DATA: White count is 7.9, hemoglobin and hematocrit are 10.2 and 31.7 with platelet count of 242,000. Potassium 4.7. BUN and creatinine 21 and 1.3. Troponin is 0.13. Chest x-ray reveals normal cardiac silhouette with clear lung morley. Electrocardiogram reveals sinus rhythm, prior anteroseptal wall myocardial infarction pattern could not be excluded. IMPRESSION: 1. Dizziness and slurred speech, unclear if this was secondary to a recurrent neurological event or secondary to hypoglycemia. 2. Bilateral carotid bruits, may have some degree of significant carotid stenosis. 3. Possible aortic stenosis and mitral regurgitation based upon physical examination findings. 4. Rest of problems as noted. RECOMMENDATIONS: At this time, conservative management appears most reasonable. Prior to discharge, an echocardiogram and carotid ultrasound would be reasonable to document the presence of disease and extent. As far as no major abnormalities are found, discharge home with outpatient followup as needed would be appropriate. Thank you for this consultation. Rj Butler MD
--- NOTE | 2017-10-29 18:30 | US ---
PROCEDURE: Bilateral carotid artery duplex ultrasound HISTORY: Carotid stenosis syncope PHYSICIAN(S): Radames Cuevas MD. TECHNIQUE: Duplex sonography and color-flow Doppler were used to evaluate the carotid bifurcations and limited segments of the vertebral arteries bilaterally. FINDINGS: There is diffuse heterogeneous plaque noted at the carotid bifurcations bilaterally. The peak systolic velocity in the proximal right internal carotid artery is 80 cm/sec. This corresponds to a 20 to 39% proximal right ICA stenosis. Normal systolic velocities are noted in the proximal right external carotid artery. There is antegrade flow in the right vertebral artery. The peak systolic velocity in the proximal left internal carotid artery is 98 cm/sec. This corresponds to a 20 to 39% proximal left ICA stenosis. Normal systolic velocities are noted in the proximal left external carotid artery. There is antegrade flow in the left vertebral artery. IMPRESSION: 1. Bilateral 20-39% proximal ICA stenoses. 2. Antegrade flow in both vertebral arteries.
== END 2017-10-28 19:00 | disposition home or self-care (01) ==
LOC: ED 22:35 → ERH 10-27 00:54 → 3RNO 10-27 14:45
PROVIDERS: ADMIT Internal Medicine Medical Oncology; ATTEND Internal Medicine Nephrology
DX: E11.649 Type 2 diabetes mellitus with hypoglycemia without coma (principal); G45.9 Transient cerebral ischemic attack, unspecified; I65.23 Occlusion and stenosis of bilateral carotid arteries; I10 Essential (primary) hypertension; Z85.038 Personal history of other malignant neoplasm of large intestine; Z79.4 Long term (current) use of insulin; Z86.73 Personal history of transient ischemic attack (TIA), and cerebral infarction without residual deficits; Z90.49 Acquired absence of other specified parts of digestive tract; Z87.891 Personal history of nicotine dependence; R26.81 Unsteadiness on feet
CPT/HCPCS: 36415; 70450; 71045; 80048; 80053; 81001; 82550; 82948; 83615; 84484; 85025; 85027; 85610; 85730; 93005; 93306; 93880; 96374; 99285; G0378; J7070

== ENCOUNTER 2018-01-24 20:59 | Inpatient (IN) | payer MEDICARE, OTHER ==
[2018-01-24 21:01] VITALS: BMI 17.7
--- NOTE | 2018-01-24 21:08 | ED PDOC ---
"Arrival/HPI - General Time Seen by Provider: 01/24/18 21:00 Historian: Family - History of Present Illness Narrative History of Present Illness (Text): 01/24/18 21:40 Ky Espinosa is an 88 year old female, whose past medical history includes hypertension, diabetes, and a previous TIA, who presents to the emergency department from home AMS as per family. Patient was last seen normal at 19:30 and was found on the floor [employer]. Patient is ambulatory verbal with no previous complaints at baseline Full HPI and ROS limited due to patient's mental status. 01/25/18 00:38 Time/Duration: Prior to Arrival Symptom Onset: Sudden Symptom Course: Unchanged Activities at Onset: Light Context: Home Past Medical History - Provider Review Nursing Documentation Reviewed: Yes - Infectious Disease Hx of Infectious Diseases: None - Tetanus Immunization Tetanus Immunization: Unknown - Cardiac Hx Cardiac Disorders: Yes Hx Hypertension: Yes - Pulmonary Hx Respiratory Disorders: No - Neurological Hx Neurological Disorder: Yes Hx Dizziness: Yes Hx Transient Ischemic Attacks (TIA): Yes - HEENT Hx HEENT Disorder: Yes Hx Cataracts: Yes (BILATERAL SURGERY) - Renal Hx Renal Disorder: No - Endocrine/Metabolic Hx Diabetes Mellitus Type 2: Yes - Hematological/Oncological Hx Blood Disorders: No - Integumentary Hx Dermatological Disorder: No - Musculoskeletal/Rheumatological Hx Musculoskeletal Disorders: No Hx Falls: No - Gastrointestinal Hx Gastrointestinal Disorders: Yes (RIGHT HEMICOLECTOMY,COLITIS) Hx Diverticulitis: Yes - Genitourinary/Gynecological Hx Genitourinary Disorders: No - Psychiatric Hx Psychophysiologic Disorder: No Hx Substance Use: No - Past Surgical History Past Surgical History: No Previous - Surgical History Other/Comment: colectomy - Anesthesia Hx Anesthesia Reactions: No Hx Malignant Hyperthermia: No - Suicidal Assessment Feels Threatened In Home Enviroment: No Family/Social History - Physician Review Nursing Documentation Reviewed: Yes Family/Social History: Unknown Family HX Smoking Status: Never Smoked Hx Alcohol Use: No Hx Substance Use: No Hx Substance Use Treatment: No Allergies/Home Meds Allergies/Adverse Reactions: Allergies No Known Allergies Allergy (Verified 01/24/18 21:04) Review of Systems - Review of Systems Systems not reviewed;Unavailable: Altered Mental Status Physical Exam Vital Signs Temp Pulse Resp BP Pulse Ox 01/24/18 23:50 123 H 17 93 L 01/24/18 23:46 106 H 160/95 H 99 01/24/18 23:40 106 H 29 H 98 01/24/18 23:30 91 H 98 01/24/18 23:20 85 29 H 92 L 01/24/18 23:10 101 H 24 95 01/24/18 23:07 95 H 25 H 154/53 H 97 01/24/18 23:00 125 H 95 01/24/18 22:50 97 H 30 H 97 01/24/18 22:48 97.9 F 110 H 22 160/94 H 01/24/18 22:40 95 01/24/18 22:39 97 01/24/18 22:37 161/95 H 01/24/18 22:30 98 H 18 132/99 H 98 01/24/18 21:57 89 18 150/70 100 01/24/18 21:45 100 H 192/84 H 01/24/18 21:33 97.9 F 93 H 18 182/84 H 97 Temperature: Afebrile Blood Pressure: Normal Pulse: Regular Respiratory Rate: Normal Appearance: Positive for: Non-Toxic, Comfortable, Ill-Appearing, Other (elderly female in bed, not following commands, awake, no drooling, ) Pain Distress: None Mental Status: Positive for: Confused Finger Stick Blood Glucose: 170 - Systems Exam Head: Present: Atraumatic, Normocephalic Pupils: Present: PERRL Extroacular Muscles: Present: EOMI Conjunctiva: Present: Normal Mouth: Present: Moist Mucous Membranes Neck: Present: Normal Range of Motion Respiratory/Chest: Present: Clear to Auscultation Cardiovascular: Present: Regular Rate and Rhythm Abdomen: No: Tenderness, Distention, Rebound, Guarding Upper Extremity: Present: Normal Inspection Lower Extremity: Present: Normal Inspection Neurological: Present: Other. No: Speech Normal, Motor Func Grossly Intact ( right side deficit), Normal Sensory Function Skin: Present: Warm, Dry Psychiatric: Present: Other (confused) Medical Decision Making ED Course and Treatment: 01/24/18 21:09 Impression: 88 year old female brought in from home for AMS. Plan: -- CT Head -- EKG -- Labs -- Hemoglobin A1C -- Lipid Panel -- Troponin I -- Chest X-ray -- niCARdipine -- Reassess and disposition Progress Notes: Code Stroke called 20:05. EKG reviewed, shows NSR at [address] bpm[address] Non-specific ST/T wave changes. 01/24/18 21:[address] Martinez, who is aware and agrees with plan. Large bleed was seen. Patient is not a TP candidate. 01/24/18 21:49 CT Head reviewed, shows: Brain: Large acute left posterior frontal intraparenchymal hematoma measuring up to 4.5 x 3.7 x 4.8 cm. Mild adjacent vasogenic edema. Mild adjacent subarachnoid extension of blood. There is mass effect on left hemisphere with 3 mm midline shift to the right. No intraventricular or definitive subdural extension of the hematoma. There are areas of diminished density in the white matter bilaterally consistent with chronic small vessel ischemic changes. Pepper-white matter differentiation is intact and unremarkable. No mass lesion. No evidence of intracranial hemorrhage. Ventricles: Unremarkable. No ventriculomegaly. Bones/joints: Unremarkable. No acute fracture. Soft tissues: Unremarkable. Sinuses: Unremarkable as visualized. No acute sinusitis. Mastoid air cells: Unremarkable as visualized. No mastoid effusion. IMPRESSION: 1. Large acute left posterior frontal intraparenchymal hematoma measuring up to 4.5 x 3.7 x 4.8 cm. Mild adjacent vasogenic edema. Mild adjacent subarachnoid extension of blood. There [place] | Preliminary Radiology Report EMPLOYMENT ADJUDICATOR (QA) DISCREPANCY? If there is a discrepancy between the preliminary and final interpretation, please notify [email or web address] via [email or web address]. If you do not have access to our QA portal, call our QA team at [phone] CONFIDENTIALITY STATEMENT This report is intended only for the use of the referring physician, and only in accordance with law, If you received this in error, call [phone] Page 2 of 2 is mass effect on left hemisphere with 3 mm midline shift to the right. No intraventricular or definitive subdural extension of the hematoma. 2. Chronic ischemic changes bilaterally. 01/24/18 21:56 Discussed intubation of patient with family. They want to wait until the brother gets here. Discussed case with Neurosurgery, who is aware and agrees with plan. Suggests repeat Head CT in the morning. 01/24/18 22:37 ICU evaluated patient. Patient family still deciding over code status. Case discussed with nascar pit crew person, who is aware and agrees with plan. Accepts patient into his service to the ICU. 01/25/18 00:39 prognosis discussed extensively with family. gaurded prognosis. - Lab Interpretations Lab Results: 01/24/18 21:31 01/24/18 21:31 Lab Results 01/24/18 21:31: Blood Type A NEGATIVE, Antibody Screen Negative, BBK History Checked Patient has bt 01/24/18 21:31: Sodium 140, Potassium 4.2, Chloride 105, Carbon Dioxide 23, Anion Gap 16, BUN 32 H, Creatinine 1.3 H, Est GFR ( Amer) 47, Est GFR ( Non-Af Amer) 39, Random Glucose 191 H, Calcium 11.1 H, Total Bilirubin 0.3, AST 28, ALT 20, Alkaline Phosphatase 104, Troponin I < 0.01 D, Total Protein 7.7, Albumin 4.3, Globulin 3.4, Albumin/Globulin Ratio 1.3, Triglycerides 89, Cholesterol 164, LDL Cholesterol Direct 58, HDL Cholesterol 89 H 01/24/18 21:31: PT 10.8, INR 0.95, APTT 29.3 01/24/18 21:31: WBC 8.5, RBC 3.75, Hgb 11.9 L, Hct 35.1 L, MCV 93.6 D, MCH 31.7 , MCHC 33.9, RDW 13.0, Plt Count 264, MPV 11.3 H, Gran % 53.4, Lymph % (Auto) 31.1, [place] % (Auto) 12.3 H, Eos % (Auto) 2.8, Baso % (Auto) 0.4, Gran # 4.52, Lymph # (Auto) 2.6, [place] # (Auto) 1.0 H, Eos # (Auto) 0.2, Baso # (Auto) 0.03 01/24/18 21:03: POC Glucose (mg/dL) 170 H - RAD Interpretation Radiology Orders: 01/24/18 21:05 HEAD W/O (CODE STROKE) [CT] Stat CHEST PORTABLE [RAD] Stat - Medication Orders Current Medication Orders: Nicardipine HCl (Cardene Iv Premix) 20 mg in 200 mls @ 50 mls/hr IV .Q4H PRN; Protocol; 5 MG/HR PRN Reason: TITRATE PER MD ORDER Last Titration: 01/25/18 02:05 Dose: 2.5 mg/hr, 25 mls/hr MAR Pulse and Blood Pressure Document 01/25/18 02:05 ID (Rec: 01/25/18 02:46 ID [facility] [id number] Pulse Pulse Rate (60-90) 108 Blood Pressure Blood Pressure (100/60-150/90) 146/51 Titration Intervention Document 01/25/18 02:05 ID (Rec: 01/25/18 02:46 ID [facility] [id number] Titration Intake Titration Intake 0 Cumulative Intake 5 Cumulative Intake (Rx) 5 Waste Amount 0 Container Volume 195 Titration Dosing Titration Dose 2.5 IV Rate 25 Intake/Decrease Resumed Cumulative Dose 0.5 Insulin Human Lispro (Humalog Low) 0 units SC ACHS RAFA PRN Reason: Protocol Ondansetron HCl (Zofran Inj) 4 mg IVP Q4H PRN PRN Reason: Nausea/Vomiting Pantoprazole Sodium (Protonix Inj) 40 mg IVP Q12 RAFA Discontinued Medications Ondansetron HCl (Zofran Inj) 4 mg IVP Q6H PRN PRN Reason: Nausea/Vomiting Last Admin: 01/24/18 23:31 Dose: 4 mg IVP Administration Document 01/24/18 23:31 ID (Rec: 01/24/18 23:31 ID [facility] [id number]) Charges for Administration # of IVP Administrations 1 NIHSS Scale ([place]) Time Performed: 21:06 - How Severe is the Stoke Baseline Level of Consciousness: 1=Drowsy LOC to Questions: 2=Neither correct LOC to commands: 2=Neither correct Best Gaze: 0=Normal Visual: 0=No visual loss Facial: 0=Normal Motor Arm - Left: 3=No effort against gravity (falls immediately) Motor Arm - Right: 4=No movement Motor Leg - Left: 3=No effort against gravity (falls immediately) Motor Leg - Right: 4=No movement Limb Ataxia: 0=Absent Sensory: 0=Normal Best Language: 3=Mute Dysarthia: 2=Severe, near unintelligible or worse Extinction & Inattention (Neglect): 0=Normal, no object Score: 24 Risk Level: Severe Stroke Risk rTPA Inclusion/Exclusion - Refusal of Treatment Patient Refused Treatment: No - Inclusion Criteria for Altepase Patient is 18 years or Older: Yes The Clinical Diagnosis of Ischemic Stroke That is Causing a Potentially Disabling Neurological Deficit: No Time of Onset is Well Established to be Less Than 270 Minute Before Treatment Would Begin: Yes Risk/Benefit Discussed With Patient/Family Member Present: Yes - Exclusion Criteria for Altepase Active Internal Bleeding: Yes - Scribe Statement The provider has reviewed the documentation as recorded by the Cocoibjohnathan Corcoran All medical record entries made by the Cocoibjohnathan were at my direction and personally dictated by me. I have reviewed the chart and agree that the record accurately reflects my personal performance of the history, physical exam, medical decision making, and the department course for this patient. I have also personally directed, reviewed, and agree with the discharge instructions and disposition. Disposition/Present on Arrival - Present on Arrival Any Indicators Present on Arrival: No History of DVT/PE: No History of Uncontrolled Diabetes: No Urinary Catheter: No History Surgical Site Infection Following: None - Disposition Have Diagnosis and Disposition been Completed?: Yes Diagnosis: Intracranial bleed Disposition: HOSPITALIZED Disposition Time: 11:00 Patient Problems: Current Active Problems Problem Status Onset Intracranial bleed Acute Condition: CRITICAL"
[2018-01-24] MEDS ORDERED: Iodixanol 320 MG/ML 100 ML BOTTLE IV ONE (21:10)
[2018-01-24] MEDS ORDERED: Sodium Chloride 0.9% 1,000 ML IV SCH (21:15)
[2018-01-24] MEDS: Nicardipine 20 MG/200 ML 20 MG/200 ML BAG IV PRN ×2 (21:45→22:54)
[2018-01-24 21:47] LABS: BASO # 0.03 K/mm3 (0.0-2.0); BASO % 0.4 % (0.0-3.0); EOS # 0.2 (0.0-0.7); EOS % 2.8 % (1.5-5.0); GRAN # 4.52 (1.4-6.5); GRAN % 53.4 % (50.0-68.0); HEMOGLOBIN 11.9 g/dL (12.0-16.0); LYMPH # 2.6 (1.2-3.4); LYMPH % 31.1 % (22.0-35.0); MEAN CELL VOLUME 93.6 fl (80.0-105.0); MEAN CORPUSCULAR HEMOGLOBIN 31.7 pg (25.0-35.0); MEAN CORPUSCULAR HGB CONC 33.9 g/dl (31.0-37.0); MEAN PLATELET VOLUME 11.3 fl (7.0-11.0); MONO % 12.3 % (1.0-6.0); RBC 3.75 10^6/uL (3.5-6.1); WHITE BLOOD COUNT 8.5 10^3/ul (4.5-11.0)
[2018-01-24 21:57] LABS: INR 0.95 (0.93-1.08); PARTIAL THROMBOPLASTIN TIME 29.3 Seconds (25.1-36.5); PROTHROMBIN TIME 10.8 SECONDS (9.4-12.5)
[2018-01-24 21:59] LABS: ALB/GLOB RATIO 1.3 (1.1-1.8); ALBUMIN 4.3 g/dL (3.0-4.8); ALT/SGPT 20 U/L (7-56); AST/SGOT 28 U/L (14-36); BLOOD UREA NITROGEN 32 mg/dL (7-21); CALCIUM 11.1 mg/dL (8.4-10.5); GFR AFRICAN-AMERICAN 47; GFR NON-AFRICAN AMERICAN 39; HDL CHOLESTEROL 89 mg/dL (29-60)
[2018-01-24 22:09] LABS: LDL CHOLESTEROL 58 mg/dL (0-129)
[2018-01-24 22:12] LABS: TROPONIN I < 0.01 ng/mL
--- NOTE | 2018-01-24 22:21 | CP.PCM.PN ---
Subjective - Date & Time of Evaluation Date of Evaluation: 01/24/18 Time of Evaluation: 22:20 - Subjective Subjective: called by ER 88 yo female aphasic and r hemiplegic Left MCA lobar hemmorhage with 3 mm shift Not surgical lesion removing hematoma will not reverse deficits Medical managment as per neurology suggested at this time Objective - Vital Signs/Intake and Output Vital Signs (last 24 hours): Temp Pulse Resp BP Pulse Ox 97.9 F 89 18 150/70 100 01/24/18 21:33 01/24/18 21:57 01/24/18 21:57 01/24/18 21:57 01/24/18 21:57 - Medications Medications: Current Medications Nicardipine HCl (Cardene Iv Premix) 20 mg in 200 mls @ 50 mls/hr IV .Q4H PRN; Protocol; 5 MG/HR PRN Reason: TITRATE PER MD ORDER Last Admin: 01/24/18 21:45 Dose: 50 mls/hr - Labs Labs: PT 10.8 SECONDS (9.4-12.5) 01/24/18 21:31 INR 0.95 (0.93-1.08) 01/24/18 21:31 APTT 29.3 Seconds (25.1-36.5) 01/24/18 21:31
--- NOTE | 2018-01-25 01:58 | CP.PCM.HP ---
Past Patient History - Infectious Disease Hx of Infectious Diseases: None - Tetanus Immunizations Tetanus Immunization: Unknown - Past Social History Smoking Status: Never Smoked - CARDIAC Hx Cardiac Disorders: Yes Hx Hypertension: Yes - PULMONARY Hx Respiratory Disorders: No - NEUROLOGICAL Hx Neurological Disorder: Yes Hx Dizziness: Yes Hx Transient Ischemic Attacks (TIA): Yes - HEENT Hx HEENT Problems: Yes Hx Cataracts: Yes (BILATERAL SURGERY) - RENAL Hx Chronic Kidney Disease: No - ENDOCRINE/METABOLIC Hx Diabetes Mellitus Type 2: Yes - HEMATOLOGICAL/ONCOLOGICAL Hx Blood Disorders: No - INTEGUMENTARY Hx Dermatological Problems: No - MUSCULOSKELETAL/RHEUMATOLOGICAL Hx Musculoskeletal Disorders: No Hx Falls: No - GASTROINTESTINAL Hx Gastrointestinal Disorders: Yes (RIGHT HEMICOLECTOMY,COLITIS) Hx Diverticulitis: Yes - GENITOURINARY/GYNECOLOGICAL Hx Genitourinary Disorders: No - PSYCHIATRIC Hx Psychophysiologic Disorder: No Hx Substance Use: No - SURGICAL HISTORY Other/Comment: colectomy - ANESTHESIA Hx Anesthesia Reactions: No Hx Malignant Hyperthermia: No Meds Allergies/Adverse Reactions: Allergies Allergy/AdvReac Type Severity Reaction Status Date / Time No Known Allergies Allergy Verified 01/24/18 21:04 Results - Vital Signs Recent Vital Signs: Last Vital Signs Temp 97.9 F 01/24/18 21:33 Pulse 97 H 01/25/18 01:00 Resp 23 01/25/18 01:00 BP 119/41 L 01/25/18 01:00 Pulse Ox 96 01/25/18 01:00 - Labs Result Diagrams: 01/24/18 21:31 01/24/18 21:31
--- NOTE | 2018-01-25 01:58 | CP.PCM.PCO ---
Physician Communication Note - Physician Communication Note Physician Communication Note: Please see attached section for family discussion regarding Code Status Summary - Summary of Event Summary of Event: Initially, after discussion with family members at bedside and over the phone, decision was made to make patient DNR only, but a trial intubation if thought to be only short term was acceptable. After patient experienced several episodes of emesis, concerning for high risk of aspiration pneumonia given obtunded state, family was informed of the need to intubate, and then place on mechanical ventilation. Family was unclear on need for ventilation after intubation, believing that pt could just be intubated without being put on ventilator to protect airway. When informed of need for both intubation and ventilation, family was adamant that patient would not want this. After thorough conversation with family (including POA daughter) regarding options moving forward, and needing a definitive answer regarding intubation/ventilation , family determined that pt would also wish to be DNI, as she would not want to be ventilated. Code status amended to reflect this. Emotional support provided to family. called by director nursing service to perform Last Rites (pt Denominational) at family's request. Zofran was increased to 4mg IVP q4 prn for pt's comfort and to reduce risk of emesis/aspiration, prn morphine for pain control added. NOT Comfort care at this time, but family understands that if patient aspirates, high risk for cardiac arrest and passing away, are accepting of this and only wish is that if this occurs, want pt to be comfortable, otherwise will continue with supportive care pending repeat eval by Neuro in the AM.
--- NOTE | 2018-01-25 02:47 | CP.PCM.CON ---
<Richmond Khalil - Last Filed: 01/25/18 03:16> History of Present Illness - History of Present Illness History of Present Illness: ICU Consult Note Richmond Khalil, PGY-2 IM Consulted for: acute hemorrhagic stroke HPI: This is an 88 yo F with PMH of HTN, DM, colon cancer s/p R hemicolectomy, COPD, and prior TIA who was brought in by ambulance after being found down at home by family members, and was found to have a large acute intraparenchymal hematoma measuring up to 4.5 x 3.7 x 4.8 cm. HPI and ROS limited to what can be provided by that which can be provided by family, as patient is non-verbal, non-responsive to questions or commands, and appears completely obtunded. As per daughters at bedside in ED, pt had Easter dinner with family and was of normal mentation and status at that time. After returning home, daughter reported getting a phone call from her mother (the pt), but pt was not speaking on the line, so daughter became worried and went to check on mother. Reports finding her down on the ground between bed and bedside furniture; unclear if fell and injured herself, developing a bleed, or if slid down into that space due to developing a bleed. EMS was called, and [place] [facility] [place], CT head was obtained, notable for the hematoma as described above. CODE Stroke was called, and the ED reached out to Neurosurgery, who reported not an operable lesion, f/u with Neuro's recs. ICU was consulted for close monitoring. As discussed with family at bedside and on phone, pt is DNR, but not DNI. Family aware of hematoma findings on scans, understand poor prognosis , but willing to proceed with standard medical therapy, want to see what Neurologist says in AM. PMH: as above PSH: R hemicolectomy Soc Hx: as per prior charting, negative for alcohol/illicits, former cigarette smoker Fam Hx: family unaware of contributory hx PMD: Dr. Loera Review of Systems - Review of Systems Systems not reviewed;Unavailable: Acuity of Condition, Altered Mental Status Past Patient History - Infectious Disease Hx of Infectious Diseases: None - Tetanus Immunizations Tetanus Immunization: Unknown - Past Social History Smoking Status: Never Smoked - CARDIAC Hx Cardiac Disorders: Yes Hx Hypertension: Yes - PULMONARY Hx Respiratory Disorders: No - NEUROLOGICAL Hx Neurological Disorder: Yes Hx Dizziness: Yes Hx Transient Ischemic Attacks (TIA): Yes - HEENT Hx HEENT Problems: Yes Hx Cataracts: Yes (BILATERAL SURGERY) - RENAL Hx Chronic Kidney Disease: No - ENDOCRINE/METABOLIC Hx Diabetes Mellitus Type 2: Yes - HEMATOLOGICAL/ONCOLOGICAL Hx Blood Disorders: No - INTEGUMENTARY Hx Dermatological Problems: No - MUSCULOSKELETAL/RHEUMATOLOGICAL Hx Musculoskeletal Disorders: No Hx Falls: No - GASTROINTESTINAL Hx Gastrointestinal Disorders: Yes (RIGHT HEMICOLECTOMY,COLITIS) Hx Diverticulitis: Yes - GENITOURINARY/GYNECOLOGICAL Hx Genitourinary Disorders: No - PSYCHIATRIC Hx Psychophysiologic Disorder: No Hx Substance Use: No - SURGICAL HISTORY Other/Comment: colectomy - ANESTHESIA Hx Anesthesia Reactions: No Hx Malignant Hyperthermia: No Meds Allergies/Adverse Reactions: Allergies Allergy/AdvReac Type Severity Reaction Status Date / Time No Known Allergies Allergy Verified 01/24/18 21:04 - Medications Medications: Current Medications Nicardipine HCl (Cardene Iv Premix) 20 mg in 200 mls @ 50 mls/hr IV .Q4H PRN; Protocol; 5 MG/HR PRN Reason: TITRATE PER MD ORDER Last Titration: 01/24/18 23:49 Dose: 5 mg/hr, 50 mls/hr Insulin Human Lispro (Humalog Low) 0 units SC ACHS RAFA PRN Reason: Protocol Ondansetron HCl (Zofran Inj) 4 mg IVP Q4H PRN PRN Reason: Nausea/Vomiting Physical Exam - Constitutional Appears: Cachectic, Chronically Ill, Other (Ill-appearing, non-responsive/ obtunded) - Head Exam Head Exam: ATRAUMATIC Additional comments: cannot appreciate any bruising or hematomas along head, no signs of trauma - Eye Exam Eye Exam: Normal appearance, PERRL. absent: Conjunctival injection, EOMI ( unable to assess, not moving eyes spontaneously, not moving away from light challenge for pupil assessment, not following commands), Scleral icterus Pupil Exam: NORMAL ACCOMODATION, PERRL. absent: Fixed, Irregular, Unequal - ENT Exam ENT Exam: Mucous Membranes Moist - Neck Exam Neck exam: Negative for: Lymphadenopathy, Thyromegaly - Respiratory Exam Respiratory Exam: Clear to Auscultation Bilateral, NORMAL BREATHING PATTERN. absent: Decreased Breath Sounds, Prolonged Expiratory Phase, Rales, Rhonchi, Wheezes, Respiratory Distress - Cardiovascular Exam Cardiovascular Exam: REGULAR RHYTHM, RRR, +S1, +S2. absent: Bradycardia, Tachycardia, Irregular Rhythm, JVD, +S4 - GI/Abdominal Exam GI & Abdominal Exam: Normal Bowel Sounds, Soft. absent: Distended, Firm, Guarding, Rigid - Extremities Exam Extremities exam: Positive for: pedal pulses present. Negative for: joint swelling, pedal edema - Neurological Exam Additional comments: -neither awake nor alert, obtunded and not following commands/responding to verbal stimuli, withdraws from pain stimuli, keeps eye closes -some spontaneous movements of head and extremities appreciated, otherwise remains with head rotated left and eyes closed, spontaneously movements in L>R extremities -doesn't appear to be positioning, extremities held flaccidly -GCS 8 ([id number]), but appears to be protecting her airway - Psychiatric Exam Additional comments: unable to assess, non-verbal and non-responsive - Skin Skin Exam: Dry, Intact, Normal Color, Warm Results - Vital Signs Recent Vital Signs: Last Vital Signs Temp 97.9 F 01/24/18 21:33 Pulse 97 H 01/25/18 01:00 Resp 23 01/25/18 01:00 BP 119/41 L 01/25/18 01:00 Pulse Ox 96 01/25/18 01:00 - Labs Result Diagrams: 01/24/18 21:31 01/24/18 21:31 Assessment & Plan - Assessment and Plan (Free Text) Assessment: This is an 88 yo F with PMH of HTN, DM, colon cancer s/p R hemicolectomy, COPD, and prior TIA who was brought in by ambulance after being found down at home by family members, and was found to have a large acute intraparenchymal hematoma measuring up to 4.5 x 3.7 x 4.8 cm. She was admitted to the ICU for close monitoring. Plan: Neuro: -large acute left posterior frontal intraparenchymal hematoma, 4.5 x 3.7 x 4.8cm , with mild adjacent vasogenic edema and mild adjacent subarachnoid extension of blood, mass effect on left hemisphere with 3 mm midline shift to the right -Neurosurg contacted by ED, nothing to do as per Neurosurg -Neuro consulted on pt in ED, to follow up in AM, not a candidate for tPA for stroke due to acute bleed -Cardine drip for strict BP control to prevent worsening bleed, goal is SBP < 140 -Monitor for signs of acute cerebellar herniation (Mingo's triad) -GCS 8, but protecting airway currently and family unclear on whether pt would want intubation, will follow up -NPO pending swallow eval, PT/OT, Echo, repeat CT head in 24 hrs to f/u -fingersticks ACHS to assess for hypoglycemia in setting of NPO DM pt, blood glucose goal 140-180 -Given severity of condition and family's desire to avoid overly aggressive interventions at this time, Palliative service consulted, appreciate their input Pulm: -CTAB on exam -supplemental O2 as needed, maintain SaO2 > 90%, reported hx of COPD so avoid over-oxygenation to prevent suppression of respiratory drive Cardio: -RRR, no JVD, good peripheral pulses (+2 radials, +1 dorsalis pedis B/L) -BP control as above GI -npo -protonix injection for ppx Renal: -maintain euglycemia and euvolemia -electrolytes wnl, monitor and replete as needed -GAUTAM +/- CKD (Cr. 1.3, was 1.3 at last discharge but with less elevated BUN), continue to monitor Heme: -hgb 11.9, improved over last admit, but may be hemoconcentrated given elevated BUN -avoid AC in setting of intracranial hemorrhage ID: -maintain normothermia -afebrile, no leukocytosis, no need for abx coverage at this time Dispo: ICU for close monitoring, pending repeat head CT, improved BP control, Palliative recs FEN: NPO Access: Peripheral IV Consults: ICU, Neurosurg, Neuro, Palliative Ppx: protonix for GI, avoid AC given intracranial hemorrhage, SCDs for DVT ppx Patient seen, reviewed, and discussed with attending, Dr. Santiago. <Pamela MORRIS,Ty - Last Filed: 01/25/18 11:24> Meds - Medications Medications: Current Medications Nicardipine HCl (Cardene Iv Premix) 20 mg in 200 mls @ 50 mls/hr IV .Q4H PRN; Protocol; 5 MG/HR PRN Reason: TITRATE PER MD ORDER Last Admin: 01/25/18 08:24 Dose: 2.5 mg/hr, 25 mls/hr Insulin Human Lispro (Humalog Low) 0 units SC ACHS RAFA PRN Reason: Protocol Last Admin: 01/25/18 08:23 Dose: 7 units Ondansetron HCl (Zofran Inj) 4 mg IVP Q4H PRN PRN Reason: Nausea/Vomiting Pantoprazole Sodium (Protonix Inj) 40 mg IVP Q12 RAFA Last Admin: 01/25/18 09:15 Dose: 40 mg Results - Vital Signs Recent Vital Signs: Last Vital Signs Temp 97.9 F 01/24/18 22:48 Pulse 114 H 01/25/18 09:09 Resp 30 H 01/25/18 04:00 BP 133/48 L 01/25/18 04:00 Pulse Ox 97 01/25/18 04:00 - Labs Result Diagrams: 01/24/18 21:31 01/24/18 21:31 Labs: Laboratory Results - last 24 hr 01/25/18 08:17 POC Glucose (mg/dL) 419 H* Attending/Attestation - Attestation I have personally seen and examined this patient.: Yes I have fully participated in the care of the patient.: Yes I have reviewed all pertinent clinical information: Yes Notes (Text): -I agree with the above ICU consult note completed by the resident physician with the following additions and/or changes: -The patient is an 88 year old woman with a history of IDDM, HTN, TIA, COPD and colon cancer (s/p right hemicolectomy) who was found down by family and subsequently BIBA to the ED. CT-head shows a large intraparenchymal hematoma measuring up to 4.5 x 3.7 x 4.8 cm with midline shift. Neurosurgery (contacted by ED physician) didnt think she was a surgical candidate. Upon arrival to the ICU, the patients mentation worsened and she vomited twice. As a result, the plan was to intubate her for airway protection. However, after discussion with family members, they decided to make her DNR/DNI. Hourly neuro checks, fall precautions, seizure precautions and a neurology consult have all been ordered. The patients INR and platelet count are normal. She will be kept NPO and on IVF s. Critical Care Time Spent: 90-120 minutes
[2018-01-25] MEDS: Insulin Lispro (humaLOG) LOW Coverage SC SCH ×4 (08:23→22:34)
[2018-01-25] MEDS: Nicardipine 20 MG/200 ML 20 MG/200 ML BAG IV PRN (08:24)
--- NOTE | 2018-01-25 09:51 | RAD ---
Portable chest radiograph Portable supine chest radiograph was obtained. Comparison: 10/26/2017 Findings: The lungs are well inflated. No focal consolidation. No pleural effusions or pneumothorax. The heart is normal in size. Atherosclerotic aortic calcifications are identified. The visualized bones are within normal limits for the patient's age. Impression: No active pulmonary disease.
--- NOTE | 2018-01-25 10:14 | CT ---
PROCEDURE: CT HEAD WITHOUT CONTRAST. HISTORY: Code Stroke COMPARISON: None available. TECHNIQUE: Axial computed tomography images were obtained through the head/brain without intravenous contrast. Radiation dose: Total exam DLP = 647 mGy-cm. This CT exam was performed using one or more of the following dose reduction techniques: Automated exposure control, adjustment of the mA and/or kV according to patient size, and/or use of iterative reconstruction technique. FINDINGS: HEMORRHAGE: There is a large acute left frontal intraparenchymal hematoma measuring 4.5 x 3.7 x 4.8 cm. There is a moderate amount of vasogenic edema. BRAIN: There is mass effect with 3 mm of midline shift to the right. VENTRICLES: Unremarkable. No hydrocephalus. CALVARIUM: Unremarkable. PARANASAL SINUSES: Unremarkable as visualized. No significant inflammatory changes. MASTOID AIR CELLS: Unremarkable as visualized. No inflammatory changes. OTHER FINDINGS: The report concurs with the preliminary [facility] report IMPRESSION: Large left posterior frontal intraparenchymal hemorrhage. See comments
[2018-01-25] MEDS ORDERED: Phytonadione 10 mg/ml Inj (Adult) SC ONE (11:24)
--- NOTE | 2018-01-25 11:37 | CP.CCUPN ---
<Aravind Brown - Last Filed: 01/25/18 11:34> CCU Subjective - Physician Review Subjective (Free Text): Patient seen and examined bedside. No acute issues overnight. Patient not responding to verbal stimuli. Random non purposeful movements of upper extremities. Unable to obtain ROS. 01/25/18 11:34 01/25/18 11:35 CCU Objective - Vital Signs / Intake & Output Vital Signs (Last 4 hours): Vital Signs Pulse 01/25/18 09:09 114 H Intake and Output (Last 8hrs): Intake & Output 01/24/18 01/25/18 01/25/18 22:59 06:59 14:59 Intake Total 105 195 Output Total 450 Balance -345 195 Weight 88 lb 90 lb 11.2 oz Intake: IV 105 195 Right Hand 100 Oral 0 Output: Urine 250 Urine, Voided 250 Emesis 200 Other: # Bowel Movements 1 - Physical Exam Head: Positive for: Atraumatic, Normocephalic Pupils: Negative for: PERRL Conjunctiva: Positive for: Normal Respiratory/Chest: Positive for: Clear to Auscultation Cardiovascular: Positive for: Regular Rate and Rhythm, Normal S1, S2 Abdomen: Positive for: Tenderness, Distention, Normal Bowel Sounds, Rebound, Guarding Lower Extremity: Positive for: Normal Inspection. Negative for: Edema Neurological: Negative for: GCS=15, CN II-XII Intact, Speech Normal, Motor Func Grossly Intact (right side deficit), Normal Sensory Function Skin: Positive for: Warm, Dry Psychiatric: Negative for: Alert, Oriented x 3 - Medications Active Medications: Active Medications Generic Name Dose Route Start Last Admin Trade Name Freq PRN Reason Stop Dose Admin Nicardipine HCl 20 mg in 200 mls @ 50 mls/hr 01/24/18 21:34 01/25/18 08:24 Cardene Iv Premix IV 2.5 mg/hr .Q4H PRN 25 mls/hr TITRATE PER MD ORDER Administration Protocol 5 MG/HR Insulin Human Lispro 0 units 01/25/18 07:30 01/25/18 08:23 Humalog Low SC 7 units ACHS RAFA Administration Protocol Ondansetron HCl 4 mg 01/24/18 23:39 Zofran Inj IVP Q4H PRN Nausea/Vomiting Pantoprazole Sodium 40 mg 01/25/18 10:00 01/25/18 09:15 Protonix Inj IVP 40 mg Q12 RAFA Administration - Patient Studies Lab Studies: Lab Studies 01/25/18 Range/Units 08:17 POC Glucose (mg/dL) 419 H* (65-110) mg/dL Laboratory Results - last 24 hr 01/25/18 08:17 POC Glucose (mg/dL) 419 H* Fingerstick Blood Sugar Results: 419 Review of Systems - Review of Systems Review of Systems: unable to obtain Assessment/Plan - Assessment and Plan (Free Text) Assessment: This is an 88 yo F with PMH of HTN, DM, colon cancer s/p R hemicolectomy, COPD, and prior TIA who was brought in by ambulance after being found down at home by family members, and was found to have a large acute intraparenchymal hematoma measuring up to 4.5 x 3.7 x 4.8 cm. She was admitted to the ICU for close monitoring. Plan: Neuro: -large acute left posterior frontal intraparenchymal hematoma, 4.5 x 3.7 x 4.8cm , with mild adjacent vasogenic edema and mild adjacent subarachnoid extension of blood, mass effect on left hemisphere with 3 mm midline shift to the right -Neurosurg contacted by ED, nothing to do as per Neurosurg -Neuro consulted, Luna -Cardene drip for strict BP control to prevent worsening bleed, goal is SBP < 140 -fingersticks ACHS to assess for hypoglycemia in setting of NPO DM pt, blood glucose goal 140-180 -repeat CT head in afternoon Pulm: -supplemental O2 as needed, maintain SaO2 > 90%, reported hx of COPD so avoid over-oxygenation to prevent suppression of respiratory drive Cardio: -RRR, no JVD, good peripheral pulses (+2 radials, +1 dorsalis pedis B/L) -BP control as above GI -npo -protonix injection for ppx Renal: -maintain euglycemia and euvolemia -monitor and replete as needed Heme: -FFP -Vitamin K injection ID: -maintain normothermia -afebrile, no leukocytosis Dispo: ICU for close monitoring, pending repeat head CT, improved BP control, Palliative recs FEN: NPO Access: Peripheral IV Consults: ICU, Neurosurg, Neuro, Palliative Ppx: protonix for GI, avoid AC given intracranial hemorrhage, SCDs for DVT ppx <Takhalov,Clifford - Last Filed: 01/25/18 12:29> CCU Objective - Vital Signs / Intake & Output Vital Signs (Last 4 hours): Vital Signs Pulse 01/25/18 09:09 114 H Intake and Output (Last 8hrs): Intake & Output 01/24/18 01/25/18 01/25/18 22:59 06:59 14:59 Intake Total 105 195 Output Total 450 Balance -345 195 Weight 88 lb 90 lb 11.2 oz Intake: IV 105 195 Right Hand 100 Oral 0 Output: Urine 250 Urine, Voided 250 Emesis 200 Other: # Bowel Movements 1 - Medications Active Medications: Active Medications Generic Name Dose Route Start Last Admin Trade Name Freq PRN Reason Stop Dose Admin Nicardipine HCl 20 mg in 200 mls @ 50 mls/hr 01/24/18 21:34 01/25/18 08:24 Cardene Iv Premix IV 2.5 mg/hr .Q4H PRN 25 mls/hr TITRATE PER MD ORDER Administration Protocol 5 MG/HR Insulin Human Lispro 0 units 01/25/18 07:30 01/25/18 08:23 Humalog Low SC 7 units ACHS RAFA Administration Protocol Ondansetron HCl 4 mg 01/24/18 23:39 Zofran Inj IVP Q4H PRN Nausea/Vomiting Pantoprazole Sodium 40 mg 01/25/18 10:00 01/25/18 09:15 Protonix Inj IVP 40 mg Q12 RAFA Administration - Patient Studies Lab Studies: Lab Studies 01/25/18 01/25/18 01/25/18 Range/Units 11:50 11:47 08:17 WBC 21.8 H D (4.5-11.0) 10^3/ul RBC 3.39 L (3.5-6.1) 10^6/uL Hgb 10.8 L (12.0-16.0) g/dL Hct 31.4 L (36.0-48.0) % MCV 92.6 (80.0-105.0) fl MCH 31.9 (25.0-35.0) pg MCHC 34.4 (31.0-37.0) g/dl RDW 13.0 (11.5-14.5) % Plt Count 264 (120.0-450.0) 10^3/uL MPV 10.9 (7.0-11.0) fl Gran % 83.6 H (50.0-68.0) % Lymph % (Auto) 5.6 L (22.0-35.0) % [place] % (Auto) 10.8 H (1.0-6.0) % Eos % (Auto) 0.0 L (1.5-5.0) % Baso % (Auto) 0.0 (0.0-3.0) % Gran # 18.23 H (1.4-6.5) Lymph # (Auto) 1.2 (1.2-3.4) [place] # (Auto) 2.4 H (0.1-0.6) Eos # (Auto) 0.0 (0.0-0.7) Baso # (Auto) 0.01 (0.0-2.0) K/mm3 POC Glucose (mg/dL) 306 H 419 H* (65-110) mg/dL Laboratory Results - last 24 hr 01/25/18 01/25/18 01/25/18 08:17 11:47 11:50 WBC 21.8 H D RBC 3.39 L Hgb 10.8 L Hct 31.4 L MCV 92.6 MCH 31.9 MCHC 34.4 RDW 13.0 Plt Count 264 MPV 10.9 Gran % 83.6 H Lymph % (Auto) 5.6 L [place] % (Auto) 10.8 H Eos % (Auto) 0.0 L Baso % (Auto) 0.0 Gran # 18.23 H Lymph # (Auto) 1.2 [place] # (Auto) 2.4 H Eos # (Auto) 0.0 Baso # (Auto) 0.01 POC Glucose (mg/dL) 419 H* 306 H Assessment/Plan - Assessment and Plan (Free Text) Assessment: Patient seen and examined on rounds with resident, agree with note with following additions/exceptions: Patient is 88yo female with PMhx of HTN, DM, colon cancer s/p R hemicolectomy, COPD, TIA, admitted for AMS, found to have large acute left IPH. Neurosurgery consulted, no acute NSG intervention. Neurology following. Currently the patient is altered, minimally responsive, pt is DNR/DNI as per records. IPH COPD HTN DM Recommend: - supp o2 as needed - panculture, BCx, UCx, procal - BP control, Cardene - NPO - speech swallow eval - neurology consult - neurosurgery follow up - FS control - consider 3% saline - GI ppx, PPI - DVT ppx, SCDs - Monitor MICU Overall prognosis poor DNR/DNI Critical care time 35 minutes
[2018-01-25 11:56] LABS: BASO # 0.01 K/mm3 (0.0-2.0); GRAN # 18.23 (1.4-6.5); GRAN % 83.6 % (50.0-68.0); HEMOGLOBIN 10.8 g/dL (12.0-16.0); LYMPH # 1.2 (1.2-3.4); LYMPH % 5.6 % (22.0-35.0); MEAN CELL VOLUME 92.6 fl (80.0-105.0); MEAN CORPUSCULAR HEMOGLOBIN 31.9 pg (25.0-35.0); MEAN CORPUSCULAR HGB CONC 34.4 g/dl (31.0-37.0); MEAN PLATELET VOLUME 10.9 fl (7.0-11.0); MONO # 2.4 (0.1-0.6); MONO % 10.8 % (1.0-6.0); RBC 3.39 10^6/uL (3.5-6.1); WHITE BLOOD COUNT 21.8 10^3/ul (4.5-11.0)
--- NOTE | 2018-01-25 12:41 | CP.PCM.CON ---
History of Present Illness - History of Present Illness History of Present Illness: 88 yr old woman who was with her family celebrating , when her daughter heard a thump and found her mother on the ground, down. There was no witnessed seizure activity, but patient was unresponsive. She was brought to [place] ER, and found to have a large left temporal bleed, and was admitted to the ICU. There is a prior history of hypertension, but no other medical issues of which we know. No prior head trauma, no mva, and she lives with her family . The patient is very active baseline and does all of her adls. On examination today, she is nonverbal with no abnormal movements. PMH/PSH: As above FH/SH: non contributory. No tobacco, no etoh. All: nkda. On exam: obtunded, does not open eyes. Right eye no blink to threat, left eye is normal. PERRL. +dolls eyes, +gag, does not localize to sternal rub. motor: strength: neither arm has any movement, right arm falls to the bed, there is no semipurposeful movement noted. sensory: cannot test. Cerebellar: gait not tested. +2 dtr ul and ll bl. Toes downgoing, no clonus. Past Patient History - Infectious Disease Hx of Infectious Diseases: None - Tetanus Immunizations Tetanus Immunization: Unknown - Past Social History Smoking Status: Never Smoked - CARDIAC Hx Cardiac Disorders: Yes Hx Hypertension: Yes - PULMONARY Hx Respiratory Disorders: No - NEUROLOGICAL Hx Neurological Disorder: Yes Hx Dizziness: Yes Hx Transient Ischemic Attacks (TIA): Yes - HEENT Hx HEENT Problems: Yes Hx Cataracts: Yes (BILATERAL SURGERY) - RENAL Hx Chronic Kidney Disease: No - ENDOCRINE/METABOLIC Hx Diabetes Mellitus Type 2: Yes - HEMATOLOGICAL/ONCOLOGICAL Hx Blood Disorders: No - INTEGUMENTARY Hx Dermatological Problems: No - MUSCULOSKELETAL/RHEUMATOLOGICAL Hx Musculoskeletal Disorders: No Hx Falls: No - GASTROINTESTINAL Hx Gastrointestinal Disorders: Yes (RIGHT HEMICOLECTOMY,COLITIS) Hx Diverticulitis: Yes - GENITOURINARY/GYNECOLOGICAL Hx Genitourinary Disorders: No - PSYCHIATRIC Hx Psychophysiologic Disorder: No Hx Substance Use: No - SURGICAL HISTORY Other/Comment: colectomy - ANESTHESIA Hx Anesthesia Reactions: No Hx Malignant Hyperthermia: No Meds Allergies/Adverse Reactions: Allergies Allergy/AdvReac Type Severity Reaction Status Date / Time No Known Allergies Allergy Verified 04/01/18 21:04 - Medications Medications: Current Medications Nicardipine HCl (Cardene Iv Premix) 20 mg in 200 mls @ 50 mls/hr IV .Q4H PRN; Protocol; 5 MG/HR PRN Reason: TITRATE PER MD ORDER Last Admin: 01/25/18 08:24 Dose: 2.5 mg/hr, 25 mls/hr Insulin Human Lispro (Humalog Low) 0 units SC ACHS RAFA PRN Reason: Protocol Last Admin: 01/25/18 08:23 Dose: 7 units Ondansetron HCl (Zofran Inj) 4 mg IVP Q4H PRN PRN Reason: Nausea/Vomiting Pantoprazole Sodium (Protonix Inj) 40 mg IVP Q12 RAFA Last Admin: 01/25/18 09:15 Dose: 40 mg Results - Vital Signs Recent Vital Signs: Last Vital Signs Temp 97.9 F 01/24/18 22:48 Pulse 114 H 01/25/18 09:09 Resp 30 H 01/25/18 04:00 BP 133/48 L 01/25/18 04:00 Pulse Ox 97 01/25/18 04:00 - Labs Result Diagrams: 01/25/18 11:50 01/24/18 21:31 Labs: Laboratory Results - last 24 hr 01/25/18 01/25/18 01/25/18 08:17 11:47 11:50 WBC 21.8 H D RBC 3.39 L Hgb 10.8 L Hct 31.4 L MCV 92.6 MCH 31.9 MCHC 34.4 RDW 13.0 Plt Count 264 MPV 10.9 Gran % 83.6 H Lymph % (Auto) 5.6 L [place] % (Auto) 10.8 H Eos % (Auto) 0.0 L Baso % (Auto) 0.0 Gran # 18.23 H Lymph # (Auto) 1.2 [place] # (Auto) 2.4 H Eos # (Auto) 0.0 Baso # (Auto) 0.01 POC Glucose (mg/dL) 419 H* 306 H Assessment & Plan - Assessment and Plan (Free Text) Assessment: 88 yr old woman with left temporal region hemorrhage, most likely secondary to hypertensive bleed, which shows very minimal midline shift and some mass effect. Appreciate Dr.doris consult, no neurosurgical intervention at the moment. The patient is obtunded and weak, but her prognosis is guarded. At this early stage, administering FFPS and maximizing her medical issues will improve her outcome. I do not feel that herniation is imminent at this point as the blood is resorbing. Plan: 1. ua and c and s 2. blood cultures 3. 2 units of FFP now. 4. Control hypertension. 5. physical therapy 6. dysphagia evaluation. 7. Repeat CT head daily. thank you for this consult. Dr. Jeremy MD, DPN
--- NOTE | 2018-01-25 16:14 | CT ---
PROCEDURE: CT HEAD WITHOUT CONTRAST. HISTORY: hemorrhagic stroke COMPARISON: 01/24/2018 TECHNIQUE: Axial computed tomography images were obtained through the head/brain without intravenous contrast. Radiation dose: Total exam DLP = 657 mGy-cm. This CT exam was performed using one or more of the following dose reduction techniques: Automated exposure control, adjustment of the mA and/or kV according to patient size, and/or use of iterative reconstruction technique. FINDINGS: HEMORRHAGE: There is an increase in the size of the hemorrhagic infarct in the left hemisphere. There is also a new infarct involving the left occipital lobe and left thalamus. This is probably related to uncal herniation and compromise of the posterior cerebral artery. There is increasing mass effect with 17 mm of shift to the right. Previously there was 3 mm. There is no a small subdural hematoma over the left frontal convexity. There is minimal subarachnoid hemorrhage. The findings were discussed with the medical scientific officer in the ICU at 4 p.m.. BRAIN: No mass effect or edema. No atrophy or chronic microvascular ischemic changes. VENTRICLES: Unremarkable. No hydrocephalus. CALVARIUM: Unremarkable. PARANASAL SINUSES: Unremarkable as visualized. No significant inflammatory changes. MASTOID AIR CELLS: Unremarkable as visualized. No inflammatory changes. OTHER FINDINGS: None. IMPRESSION: Increase in size of hemorrhagic infarct in the left hemisphere with 17 mm of midline shift. New infarct in the left thalamus and left occipital lobe
[2018-01-25] MEDS ORDERED: Mannitol 12.5 gm/50 ml Inj IV SCH (16:30)
[2018-01-25] MEDS ORDERED: Morphine 2 mg/2 mL syringe IVP PRN (16:43)
--- NOTE | 2018-01-25 17:10 | CON ---
DATE: 01/25/2018 NEUROLOGY CONSULTATION As a request per family. CHIEF COMPLAINT: Altered mental status. HISTORY OF PRESENT ILLNESS: This is an 88-year-old woman, known to me from prior admission with a past medical history of colon cancer, status post right hemicolectomy, hypertension, COPD, type 2 diabetes mellitus, diabetic peripheral neuropathy, old left basal ganglia infarct, history of syncope secondary to transient cerebral hypoperfusion to the brain, who apparently was doing well at home, was celebrating Easter with the family when her daughter heard a thump and found her mother down on the floor. There was no witnessed seizure activity, but the patient was found unresponsive and brought to the [facility] and found to have an acute left frontal hemorrhage with some mild mass effect measuring 4.5 x 3.7 x 4.8 cm. Hemorrhage is in the left frontal intraparenchymal area with some mild to moderate vasogenic edema. I was called by the family for an evaluation. She spontaneously moves the left upper and lower extremities. Minimal movement on the right side. She withdraws to localized and noxious stimulus. Opens eyes wide to noxious stimulus, but does not follow any simple commands at this point. She is status post FFP and going for repeat CAT scan. She did have elevated blood sugar of 419 today and A1c of 8.8. Neurosurgery was called initially and recommended no intervention at this moment. The family would like a reevaluation by Neurosurgery for possible evacuation of the intraparenchymal hematoma. PAST MEDICAL HISTORY: History of hypertension; diabetes; colon cancer, status post right hemicolectomy; COPD; history of TIA; history of syncope. REVIEW OF SYSTEMS: Fourteen-point review of systems is difficult to obtain at this time due to the patient's altered mental status. SOCIAL HISTORY: No illicit drug use, smoking or EtOH abuse. ALLERGIES: NO KNOWN DRUG ALLERGIES. MEDICATIONS: Reviewed by nurse reconciliation sheet. FAMILY HISTORY: Noncontributory. LABORATORY DATA: Sodium is 140, potassium 4.2, chloride of 105, carbon dioxide 23, BUN of 32, creatinine 1.3, random glucose of 306, A1c is 8.8. PHYSICAL EXAMINATION: VITAL SIGNS: The patient is afebrile, tachycardic of 111, blood pressure of 133/48, respiratory rate is 30, oxygen saturation 97% by nasal cannula. GENERAL: The patient is lying in bed, drowsy, in no acute distress. HEENT: Atraumatic, normocephalic. PERRLA. Extraocular muscles intact. HEART: S1, S2. Tachycardic. Regular rhythm. No murmurs, rubs or gallops. ABDOMEN: Soft, nontender and nondistended. Bowel sounds are present. EXTREMITIES: No clubbing. No cyanosis. Peripheral pulses 2+ felt bilaterally. NEUROLOGIC: The patient is drowsy and in a stuporous state. Speech is difficult to assess at this time due to the patient's drowsiness. Cranial nerves II through XII were intact except for some mild right nasolabial fold flattening. Motor examination: Decreased tone on the right side compared to the left. Sensory exam: Withdraws to localized and noxious stimulus and opens eyes to noxious stimulus. DTRs are 1+ throughout. Toes are upgoing bilaterally. Coordination and gait deferred for now. ASSESSMENT AND PLAN: This is an 88-year-old woman with history of hypertension; type 2 diabetes mellitus; diabetic peripheral neuropathy; colon cancer, status post right hemicolectomy; chronic obstructive pulmonary disease; history of syncope; history of prior transient ischemic attack; history of old left basal ganglia infarct; who was brought to the ambulance after being found down by the family members and was found to have a large acute left frontal intraparenchymal hematoma measuring 4.5 x 3.7 x 4.8 cm with some mass effect. She is currently in the Intensive Care Unit, status post fresh frozen plasma. I was called to evaluate her as per family's request. Currently, the patient will be going down for repeat CAT scan. The patient does withdraw to localized and noxious stimulus and opens eyes to noxious stimulus and is currently not intubated. She does have evidence of hyperglycemia. At this time, recommend, 1. Mannitol 0.5 g/kg every 6 hours for the 24 hours for mass effect from the intracranial hemorrhage. 2. Low-dose Keppra IV 250 q. 12 for seizure prophylaxis for now and we will not go on any higher does for now due to sedative effects of Keppra. 3. Keep blood pressure between 120s to 130s systolically and diastolic 70s to 80s. 4. Keep blood sugars between 140-180 and avoid hyperglycemic or hypoglycemic events. 5. Reevaluation by Neurosurgery for possible evacuation of the left frontal intraparenchymal hematoma as per family. 6. Continue the sequential compression devices for deep venous thrombosis prophylaxis and continue the Protonix for gastrointestinal prophylaxis. I will repeat a CAT scan tomorrow and also recommend thiamine 100 mg every 12 for neuronal activation and continue with current present medical Intensive Care Unit management. Thank you for this consult. Luke Del Valle MD
--- NOTE | 2018-01-25 17:12 | CP.PCM.PN ---
Subjective - Date & Time of Evaluation Date of Evaluation: 01/25/18 Time of Evaluation: 17:10 - Subjective Subjective: repeat CT shows large Left MCA infart with hemmorhagic component Icreased shift Family has made PT DNI/DNR Spoke to daughter today I agree with their decision, as even the most aggressive surgery will leave her at best hemiplegic and aphasic if not vegitative Objective - Vital Signs/Intake and Output Vital Signs (last 24 hours): Temp Pulse Resp BP Pulse Ox 97.9 F 111 H 30 H 133/48 L 97 01/24/18 22:48 01/25/18 13:19 01/25/18 04:00 01/25/18 04:00 01/25/18 04:00 Intake and Output: 01/25/18 01/25/18 06:59 18:59 Intake Total 105 195 Output Total 450 Balance -345 195 - Medications Medications: Current Medications Nicardipine HCl (Cardene Iv Premix) 20 mg in 200 mls @ 50 mls/hr IV .Q4H PRN; Protocol; 5 MG/HR PRN Reason: TITRATE PER MD ORDER Last Admin: 01/25/18 08:24 Dose: 2.5 mg/hr, 25 mls/hr Levetiracetam 250 mg/ Sodium (Chloride) 102.5 mls @ 460 mls/hr IV Q12 RAFA Mannitol (Mannitol) 200 mls @ 100 mls/hr IV Q6 RAFA Insulin Human Lispro (Humalog Low) 0 units SC ACHS RAFA PRN Reason: Protocol Last Admin: 01/25/18 16:28 Dose: 3 units Morphine Sulfate (Morphine) 2 mg IVP Q2H PRN PRN Reason: Pain, severe (8-10) Ondansetron HCl (Zofran Inj) 4 mg IVP Q4H PRN PRN Reason: Nausea/Vomiting Pantoprazole Sodium (Protonix Inj) 40 mg IVP Q12 [facility] Last Admin: 01/25/18 09:15 Dose: 40 mg - Labs Labs: 01/25/18 11:50 PT 10.8 SECONDS (9.4-12.5) 01/24/18 21:31 INR 0.95 (0.93-1.08) 01/24/18 21:31 APTT 29.3 Seconds (25.1-36.5) 01/24/18 21:31
--- NOTE | 2018-01-25 19:41 | CARD ---
APPROVED REPORT EKG Measurement Heart [id number] <Conclusion> Sinus rhythm with premature atrial complexes Nonspecific ST and T wave abnormality Abnormal ECG
--- NOTE | 2018-01-25 21:08 | HP ---
DATE OF EXAM: HISTORY OF PRESENT ILLNESS: This is an 88-year-old female who came to the hospital with changes in mental status. The patient has a past medical history of hypertension, diabetes, TIA. She was recently in the hospital in October 2017 for a TIA and was discharged. The patient does have a history of colon cancer, has been in remission. She was seen in the ER, had a CAT scan done. CAT scan showed left MCA hemorrhage with a 3-mm shift. There were no surgical lesions. No surgical intervention is planned by Dr. Wesley. The patient is currently in the ICU, not responsive. ALLERGIES: NO KNOWN DRUG ALLERGIES. SOCIAL HISTORY: She lives at home with her son. She does not smoke or drink. FAMILY HISTORY: Noncontributory. PAST SURGICAL HISTORY: Right hemicolectomy. PAST MEDICAL HISTORY: Diabetes type 2, colon cancer, hypertension. PHYSICAL EXAMINATION VITAL SIGNS: Temperature is 97.9, pulse of 108, blood pressure 127/43, respirations 27. GENERAL: The patient lying in bed, uncomfortable, and in no acute distress. HEENT: Atraumatic and normocephalic. Anicteric sclerae. Moist mucosa. Pisinemo conjunctivae. No oral lesions. NECK: No JVD, anterior and posterior adenopathy, thyromegaly, or bruits. CARDIOVASCULAR: S1 and S2 regular. No murmur, rubs, or gallop. LUNGS: Clear to auscultation bilaterally. No wheezes, rales, or rhonchi. ABDOMEN: Bowel sounds are positive. Soft, nontender and nondistended. No hepatosplenomegaly. No rebound and no guarding EXTREMITIES: No cyanosis, clubbing, or edema. NEUROLOGIC: No facial asymmetry. Tongue is midline. No uvula deviation. Power is 5/5 upper extremity and lower extremity. Sensation intact in upper extremity and lower extremity. PSYCHIATRIC: She is awake, alert and oriented x3. No anxiety or depression. She has normal affect. GENITOURINARY: No CVA tenderness. VASCULAR: 2+ pulses in the carotid pulses and pedal pulses. SKIN: No erythema or nodules SPINE: Shows normal curvature. CAT scan was reviewed. Chest x-ray done shows no infiltrates. EKG shows sinus rhythm. Nonspecific ST changes. QTc is 414. Labs reviewed ASSESSMENT 1. 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 2. Diabetes type 2. 3. Hypotension. 4. History of colon cancer. 5. Do not resuscitate/do not intubate. PLAN: The patient is currently in the ICU. She is comfortable, but not arousable. The patient was informed about the current condition. Police is called by the school of nursing director. Overall prognosis is poor. We will need palliative care. The patient is on Zofran as needed. She is on nicardipine. We will speak to the patient's daughter, Laney, to give her an update. John Loera MD cc: Dr. Herson Brown MTDD
[2018-01-26 06:49] LABS: BASO # 0.01 K/mm3 (0.0-2.0); GRAN # 23.35 (1.4-6.5); GRAN % 89.3 % (50.0-68.0); HEMOGLOBIN 9.9 g/dL (12.0-16.0); LYMPH # 0.7 (1.2-3.4); LYMPH % 2.8 % (22.0-35.0); MEAN CELL VOLUME 93.1 fl (80.0-105.0); MEAN CORPUSCULAR HEMOGLOBIN 31.1 pg (25.0-35.0); MEAN CORPUSCULAR HGB CONC 33.4 g/dl (31.0-37.0); MEAN PLATELET VOLUME 11.5 fl (7.0-11.0); MONO # 2.1 (0.1-0.6); MONO % 7.9 % (1.0-6.0); PLATELET COUNT 231 10^3/uL (120.0-450.0); RBC 3.18 10^6/uL (3.5-6.1); RED CELL DISTRIBUTION WIDTH 13.8 % (11.5-14.5)
[2018-01-26 07:22] LABS: ALB/GLOB RATIO 1.3 (1.1-1.8); ALBUMIN 4.1 g/dL (3.0-4.8); CALCIUM 9.7 mg/dL (8.4-10.5)
[2018-01-26 07:26] LABS: WHITE BLOOD COUNT 26.2 10^3/ul (4.5-11.0)
[2018-01-26 08:00] LABS: BAND 1 % (0-2); LYMPHOCYTE 2 % (22.0-35.0); MONOCYTE 1 % (1.0-6.0); NEUTROPHIL 96 % (50.0-70.0)
[2018-01-26 08:01] LABS: PLATELET ESTIMATE NORMAL (NORMAL)
[2018-01-26] MEDS ORDERED: Insulin Regular 1 UNITS/0.01 ML ML SC ONE (08:50)
--- NOTE | 2018-01-26 09:36 | CP.PCM.CON ---
History of Present Illness - History of Present Illness History of Present Illness: Palliative consult requested by Dr Obi Loera Reason: Goals of care 88 year old female with history of COPD, colon cancer s/p right hemicolectomy, TIA who presented with altered mental status. Initial CT showed left MCA hemorrhage. Most recent CT scan showed an increase in size of hemorrhagic infarct in left left hemisphere and a new infarct in the left thalamus and left occipital lobe. The patient is not a neuro-surgical candidate. PMHX: COPD, HTN, DM,TIA, syncope,colon cancer s/p R storm colectomy. Social History: Former smoker, no alcohol or drug use Lives with daughter Laney. Family History: Non contributory. Advance Care Planning: The patient has an Advanced Directives. She is DNR/DNI. Her daughter Laney Azul is POA. Review of Systems: As per HPI,unable to obtain patient is obtunded Past Patient History - Infectious Disease Hx of Infectious Diseases: None - Tetanus Immunizations Tetanus Immunization: Unknown - Past Social History Smoking Status: Never Smoked - CARDIAC Hx Cardiac Disorders: Yes Hx Hypertension: Yes - PULMONARY Hx Respiratory Disorders: No - NEUROLOGICAL Hx Neurological Disorder: Yes Hx Dizziness: Yes Hx Transient Ischemic Attacks (TIA): Yes - HEENT Hx HEENT Problems: Yes Hx Cataracts: Yes (BILATERAL SURGERY) - RENAL Hx Chronic Kidney Disease: No - ENDOCRINE/METABOLIC Hx Diabetes Mellitus Type 2: Yes - HEMATOLOGICAL/ONCOLOGICAL Hx Blood Disorders: No - INTEGUMENTARY Hx Dermatological Problems: No - MUSCULOSKELETAL/RHEUMATOLOGICAL Hx Musculoskeletal Disorders: No Hx Falls: No - GASTROINTESTINAL Hx Gastrointestinal Disorders: Yes (RIGHT HEMICOLECTOMY,COLITIS) Hx Diverticulitis: Yes - GENITOURINARY/GYNECOLOGICAL Hx Genitourinary Disorders: No - PSYCHIATRIC Hx Psychophysiologic Disorder: No Hx Substance Use: No - SURGICAL HISTORY Other/Comment: colectomy - ANESTHESIA Hx Anesthesia Reactions: No Hx Malignant Hyperthermia: No Meds Allergies/Adverse Reactions: Allergies Allergy/AdvReac Type Severity Reaction Status Date / Time No Known Allergies Allergy Verified 01/24/18 21:04 - Medications Medications: Current Medications Levetiracetam 250 mg/ Sodium (Chloride) 102.5 mls @ 460 mls/hr IV Q12 RAFA Last Admin: 01/25/18 22:39 Dose: 460 mls/hr Mannitol (Mannitol) 200 mls @ 100 mls/hr IV Q6 RAFA Last Admin: 01/26/18 05:07 Dose: 100 mls/hr Insulin Human Lispro (Humalog Med) 0 units SC ACHS [facility] PRN Reason: Protocol Morphine Sulfate (Morphine) 2 mg IVP Q2H PRN PRN Reason: Pain, severe (8-10) Ondansetron HCl (Zofran Inj) 4 mg IVP Q4H PRN PRN Reason: Nausea/Vomiting Pantoprazole Sodium (Protonix Inj) 40 mg IVP Q12 [facility] Last Admin: 01/25/18 22:39 Dose: 40 mg Physical Exam - Constitutional Appears: Chronically Ill - Eye Exam Pupil Exam: Fixed - ENT Exam ENT Exam: Mucous Membranes Moist - Respiratory Exam Respiratory Exam: Decreased Breath Sounds, Clear to Auscultation Bilateral - Cardiovascular Exam Cardiovascular Exam: REGULAR RHYTHM, +S1, +S2 - GI/Abdominal Exam GI & Abdominal Exam: Hypoactive Bowel Sounds, Soft - Extremities Exam Extremities exam: Positive for: pedal pulses present - Back Exam Back exam: NORMAL INSPECTION - Neurological Exam Additional comments: responds to nexus stimuli - Skin Skin Exam: Dry, Warm - Additional Findings Additional findings: Palliative performance scale rating 20% Results - Vital Signs Recent Vital Signs: Last Vital Signs Temp 98.1 F 01/26/18 00:00 Pulse 101 H 01/26/18 07:30 Resp 33 H 01/26/18 07:30 BP 147/55 L 01/26/18 07:30 Pulse Ox 97 01/26/18 07:30 - Labs Result Diagrams: 01/26/18 06:05 01/26/18 06:05 Labs: Laboratory Results - last 24 hr 01/25/18 01/25/18 01/25/18 11:47 11:50 16:18 WBC 21.8 H D RBC 3.39 L Hgb 10.8 L Hct 31.4 L MCV 92.6 MCH 31.9 MCHC 34.4 RDW 13.0 Plt Count 264 MPV 10.9 Gran % 83.6 H Lymph % (Auto) 5.6 L [place] % (Auto) 10.8 H Eos % (Auto) 0.0 L Baso % (Auto) 0.0 Gran # 18.23 H Lymph # (Auto) 1.2 [place] # (Auto) 2.4 H Eos # (Auto) 0.0 Baso # (Auto) 0.01 Neutrophils % (Manual) Band Neutrophils % Lymphocytes % (Manual) Monocytes % (Manual) Platelet Evaluation Sodium Potassium Chloride Carbon Dioxide Anion Gap BUN Creatinine Est GFR ( Amer) Est GFR (Non-Af Amer) POC Glucose (mg/dL) 306 H 266 H Random Glucose Calcium Total Bilirubin AST ALT Alkaline Phosphatase Total Protein Albumin Globulin Albumin/Globulin Ratio 01/25/18 01/26/18 01/26/18 21:53 06:05 06:05 WBC 26.2 H* D RBC 3.18 L Hgb 9.9 L Hct 29.6 L MCV 93.1 MCH 31.1 MCHC 33.4 RDW 13.8 Plt Count 231 MPV 11.5 H Gran % 89.3 H Lymph % (Auto) 2.8 L [place] % (Auto) 7.9 H Eos % (Auto) 0.0 L Baso % (Auto) 0.0 Gran # 23.35 H Lymph # (Auto) 0.7 L [place] # (Auto) 2.1 H Eos # (Auto) 0.0 Baso # (Auto) 0.01 Neutrophils % (Manual) 96 H Band Neutrophils % 1 Lymphocytes % (Manual) 2 L Monocytes % (Manual) 1 Platelet Evaluation Normal Sodium 136 Potassium 4.5 Chloride 100 Carbon Dioxide 22 Anion Gap 18 BUN 35 H Creatinine 1.2 Est GFR ( Amer) 51 Est GFR (Non-Af Amer) 42 POC Glucose (mg/dL) 270 H Random Glucose 429 H* D Calcium 9.7 Total Bilirubin 0.5 AST 88 H D ALT 32 Alkaline Phosphatase 88 Total Protein 7.2 Albumin 4.1 Globulin 3.1 Albumin/Globulin Ratio 1.3 01/26/18 07:21 WBC RBC Hgb Hct MCV MCH MCHC RDW Plt Count MPV Gran % Lymph % (Auto) [place] % (Auto) Eos % (Auto) Baso % (Auto) Gran # Lymph # (Auto) [place] # (Auto) Eos # (Auto) Baso # (Auto) Neutrophils % (Manual) Band Neutrophils % Lymphocytes % (Manual) Monocytes % (Manual) Platelet Evaluation Sodium Potassium Chloride Carbon Dioxide Anion Gap BUN Creatinine Est GFR ( Amer) Est GFR (Non-Af Amer) POC Glucose (mg/dL) 301 H Random Glucose Calcium Total Bilirubin AST ALT Alkaline Phosphatase Total Protein Albumin Globulin Albumin/Globulin Ratio Assessment & Plan - Assessment and Plan (Free Text) Assessment: 88 year old female with history of TIA, DM, COPD, HTN and colon cancer who is admitted with acute hemorrhagic left MCA and new left thalamus and occipital lobe infarct and seizures. Family spoke with sandwich hand, attending physician and neurosurgeon, they are porter of patients medical condition and poor prognosis. The patient has been made a DNR/DNI. Family expressed interest in comfort care. Lengthy discussion with family. They do not want PEG tube. They understand that is imminent. They are interested in comfort care. They are requesting the patient be evaluated for [facility]IP hospice care. Hospice services explained in detail, questions answered.Psychosocial support provided. Time spent with family in goals of care and end of life discussion, 45 minutes Plan: Hypoglycemia; Monitor glucose levels. Lispor as ordered ICP: Mannitol IV 0.5mg/kg as ordered. Follow neurology recommendations Pain: Morphine 2 mg IV as needed Seizures prevention: Continue Keppra. Goals of care and advance care planning - Date & Time Date: 01/26/18 Time: 13:00
--- NOTE | 2018-01-26 09:38 | CP.PCM.PN ---
<Cornelius John - Last Filed: 01/26/18 09:35> Subjective - Date & Time of Evaluation Date of Evaluation: 01/26/18 Time of Evaluation: 09:36 - Subjective Subjective: Late entry note Patient's family spoke to Dr. Christianson, Neurosurgery, who recommended palliative care for patient as intracranial hemorrhage has worsened. Family agreed with plan and would like to continue with comfort care. Family will speak with palliative care nurse today. Dora PGY-2 Objective - Vital Signs/Intake and Output Vital Signs (last 24 hours): Temp Pulse Resp BP Pulse Ox 98.1 F 101 H 33 H 147/55 L 97 01/26/18 00:00 01/26/18 07:30 01/26/18 07:30 01/26/18 07:30 01/26/18 07:30 Intake and Output: 01/26/18 01/26/18 06:59 18:59 Intake Total 150 Balance 150 - Medications Medications: Current Medications Levetiracetam 250 mg/ Sodium (Chloride) 102.5 mls @ 460 mls/hr IV Q12 [facility] Last Admin: 01/25/18 22:39 Dose: 460 mls/hr Mannitol (Mannitol) 200 mls @ 100 mls/hr IV Q6 [facility] Last Admin: 01/26/18 05:07 Dose: 100 mls/hr Insulin Human Lispro (Humalog Med) 0 units SC ACHS RAFA PRN Reason: Protocol Morphine Sulfate (Morphine) 2 mg IVP Q2H PRN PRN Reason: Pain, severe (8-10) Ondansetron HCl (Zofran Inj) 4 mg IVP Q4H PRN PRN Reason: Nausea/Vomiting Pantoprazole Sodium (Protonix Inj) 40 mg IVP Q12 [facility] Last Admin: 01/25/18 22:39 Dose: 40 mg - Labs Labs: 01/26/18 06:05 01/26/18 06:05 PT 10.8 SECONDS (9.4-12.5) 01/24/18 21:31 INR 0.95 (0.93-1.08) 01/24/18 21:31 APTT 29.3 Seconds (25.1-36.5) 01/24/18 21:31 <Clifford Cain - Last Filed: 01/26/18 12:21> Subjective - Subjective Subjective: Patients family spoke to Dr Staton yesterday, who recommended no acute surgical intervention at that time as it likely would not improve neurological status. Patient DNR/DNI, comfort care as per family's request. Palliative care consulted. Objective - Vital Signs/Intake and Output Vital Signs (last 24 hours): Temp Pulse Resp BP Pulse Ox 98.1 F 101 H 33 H 147/55 L 97 01/26/18 00:00 01/26/18 07:30 01/26/18 07:30 01/26/18 07:30 01/26/18 07:30 Intake and Output: 01/26/18 01/26/18 06:59 18:59 Intake Total 150 Balance 150 - Medications Medications: Current Medications Levetiracetam 250 mg/ Sodium (Chloride) 102.5 mls @ 460 mls/hr IV Q12 [facility] Last Admin: 01/26/18 10:28 Dose: 460 mls/hr Mannitol (Mannitol) 200 mls @ 100 mls/hr IV Q6 [facility] Last Admin: 01/26/18 05:07 Dose: 100 mls/hr Insulin Human Lispro (Humalog Med) 0 units SC ACHS RAFA PRN Reason: Protocol Morphine Sulfate (Morphine) 2 mg IVP Q2H PRN PRN Reason: Pain, severe (8-10) Ondansetron HCl (Zofran Inj) 4 mg IVP Q4H PRN PRN Reason: Nausea/Vomiting Pantoprazole Sodium (Protonix Inj) 40 mg IVP Q12 [facility] Last Admin: 01/26/18 10:29 Dose: 40 mg - Labs Labs: 01/26/18 06:05 01/26/18 06:05 PT 10.8 SECONDS (9.4-12.5) 01/24/18 21:31 INR 0.95 (0.93-1.08) 01/24/18 21:31 APTT 29.3 Seconds (25.1-36.5) 01/24/18 21:31
--- NOTE | 2018-01-26 11:24 | CP.CCUPN ---
<Aravind Brown - Last Filed: 01/26/18 11:22> CCU Subjective - Physician Review Subjective (Free Text): Patient seen and examined bedside. No acute issues overnight. Patient not responding to verbal stimuli. Unable to obtain ROS. 01/26/18 11:22 CCU Objective - Vital Signs / Intake & Output Vital Signs (Last 4 hours): Vital Signs Pulse Resp BP Pulse Ox 01/26/18 07:30 101 H 33 H 147/55 L 97 Intake and Output (Last 8hrs): Intake & Output 01/25/18 01/26/18 01/26/18 22:59 06:59 14:59 Intake Total 100 50 Balance 100 50 Intake: IV 100 50 - Physical Exam Head: Positive for: Atraumatic, Normocephalic Pupils: Negative for: PERRL Respiratory/Chest: Positive for: Clear to Auscultation Cardiovascular: Positive for: Regular Rate and Rhythm, Normal S1, S2 Abdomen: Positive for: Distention, Normal Bowel Sounds Upper Extremity: Positive for: Normal Inspection Lower Extremity: Positive for: Normal Inspection. Negative for: Edema Neurological: Negative for: GCS=15, CN II-XII Intact, Speech Normal, Motor Func Grossly Intact (right side deficit), Normal Sensory Function Skin: Positive for: Warm, Dry Psychiatric: Negative for: Alert, Oriented x 3 - Medications Active Medications: Active Medications Generic Name Dose Route Start Last Admin Trade Name Freq PRN Reason Stop Dose Admin Levetiracetam 250 mg/ Sodium 102.5 mls @ 460 mls/hr 01/25/18 22:00 01/26/18 10:28 Chloride IV 460 mls/hr Q12 [facility] Administration Mannitol 200 mls @ 100 mls/hr 01/25/18 18:00 01/26/18 05:07 Mannitol IV 100 mls/hr Q6 [facility] Administration Insulin Human Lispro 0 units 01/26/18 11:30 Humalog Med SC ACHS RAFA Protocol Morphine Sulfate 2 mg 01/25/18 16:43 Morphine IVP Q2H PRN Pain, severe (8-10) Ondansetron HCl 4 mg 01/24/18 23:39 Zofran Inj IVP Q4H PRN Nausea/Vomiting Pantoprazole Sodium 40 mg 01/25/18 10:00 01/26/18 10:29 Protonix Inj IVP 40 mg Q12 [facility] Administration - Patient Studies Lab Studies: Microbiology Studies 01/24/18 22:55 MRSA Culture (Admit) - Final Naris MRSA NOT DETECTED Lab Studies 01/26/18 01/26/18 01/26/18 Range/Units 07:21 06:05 06:05 WBC 26.2 H* D (4.5-11.0) 10^3/ul RBC 3.18 L (3.5-6.1) 10^6/uL Hgb 9.9 L (12.0-16.0) g/dL Hct 29.6 L (36.0-48.0) % MCV 93.1 (80.0-105.0) fl MCH 31.1 (25.0-35.0) pg MCHC 33.4 (31.0-37.0) g/dl RDW 13.8 (11.5-14.5) % Plt Count 231 (120.0-450.0) 10^3/uL MPV 11.5 H (7.0-11.0) fl Gran % 89.3 H (50.0-68.0) % Lymph % (Auto) 2.8 L (22.0-35.0) % [place] % (Auto) 7.9 H (1.0-6.0) % Eos % (Auto) 0.0 L (1.5-5.0) % Baso % (Auto) 0.0 (0.0-3.0) % Gran # 23.35 H (1.4-6.5) Lymph # (Auto) 0.7 L (1.2-3.4) [place] # (Auto) 2.1 H (0.1-0.6) Eos # (Auto) 0.0 (0.0-0.7) Baso # (Auto) 0.01 (0.0-2.0) K/mm3 Neutrophils % (Manual) 96 H (50.0-70.0) % Band Neutrophils % 1 (0-2) % Lymphocytes % (Manual) 2 L (22.0-35.0) % Monocytes % (Manual) 1 (1.0-6.0) % Platelet Evaluation Normal (NORMAL) Sodium 136 (132-148) mmol/L Potassium 4.5 (3.6-5.0) mmol/L Chloride 100 (98-107) mmol/L Carbon Dioxide 22 (21-33) mmol/L Anion Gap 18 (10-20) BUN 35 H (7-21) mg/dL Creatinine 1.2 (0.7-1.2) mg/dl Est GFR ( Amer) 51 Est GFR (Non-Af Amer) 42 POC Glucose (mg/dL) 301 H (65-110) mg/dL Random Glucose 429 H* D (70-110) mg/dL Calcium 9.7 (8.4-10.5) mg/dL Total Bilirubin 0.5 (0.2-1.3) mg/dL AST 88 H D (14-36) U/L ALT 32 (7-56) U/L Alkaline Phosphatase 88 (38-126) U/L Total Protein 7.2 (5.8-8.3) g/dL Albumin 4.1 (3.0-4.8) g/dL Globulin 3.1 gm/dL Albumin/Globulin Ratio 1.3 (1.1-1.8) 01/25/18 01/25/18 01/25/18 Range/Units 21:53 16:18 11:50 WBC 21.8 H D (4.5-11.0) 10^3/ul RBC 3.39 L (3.5-6.1) 10^6/uL Hgb 10.8 L (12.0-16.0) g/dL Hct 31.4 L (36.0-48.0) % MCV 92.6 (80.0-105.0) fl MCH 31.9 (25.0-35.0) pg MCHC 34.4 (31.0-37.0) g/dl RDW 13.0 (11.5-14.5) % Plt Count 264 (120.0-450.0) 10^3/uL MPV 10.9 (7.0-11.0) fl Gran % 83.6 H (50.0-68.0) % Lymph % (Auto) 5.6 L (22.0-35.0) % [place] % (Auto) 10.8 H (1.0-6.0) % Eos % (Auto) 0.0 L (1.5-5.0) % Baso % (Auto) 0.0 (0.0-3.0) % Gran # 18.23 H (1.4-6.5) Lymph # (Auto) 1.2 (1.2-3.4) [place] # (Auto) 2.4 H (0.1-0.6) Eos # (Auto) 0.0 (0.0-0.7) Baso # (Auto) 0.01 (0.0-2.0) K/mm3 Neutrophils % (Manual) (50.0-70.0) % Band Neutrophils % (0-2) % Lymphocytes % (Manual) (22.0-35.0) % Monocytes % (Manual) (1.0-6.0) % Platelet Evaluation (NORMAL) Sodium (132-148) mmol/L Potassium (3.6-5.0) mmol/L Chloride (98-107) mmol/L Carbon Dioxide (21-33) mmol/L Anion Gap (10-20) BUN (7-21) mg/dL Creatinine (0.7-1.2) mg/dl Est GFR ( Amer) Est GFR (Non-Af Amer) POC Glucose (mg/dL) 270 H 266 H (65-110) mg/dL Random Glucose (70-110) mg/dL Calcium (8.4-10.5) mg/dL Total Bilirubin (0.2-1.3) mg/dL AST (14-36) U/L ALT (7-56) U/L Alkaline Phosphatase (38-126) U/L Total Protein (5.8-8.3) g/dL Albumin (3.0-4.8) g/dL Globulin gm/dL Albumin/Globulin Ratio (1.1-1.8) 01/25/18 Range/Units 11:47 WBC (4.5-11.0) 10^3/ul RBC (3.5-6.1) 10^6/uL Hgb (12.0-16.0) g/dL Hct (36.0-48.0) % MCV (80.0-105.0) fl MCH (25.0-35.0) pg MCHC (31.0-37.0) g/dl RDW (11.5-14.5) % Plt Count (120.0-450.0) 10^3/uL MPV (7.0-11.0) fl Gran % (50.0-68.0) % Lymph % (Auto) (22.0-35.0) % [place] % (Auto) (1.0-6.0) % Eos % (Auto) (1.5-5.0) % Baso % (Auto) (0.0-3.0) % Gran # (1.4-6.5) Lymph # (Auto) (1.2-3.4) [place] # (Auto) (0.1-0.6) Eos # (Auto) (0.0-0.7) Baso # (Auto) (0.0-2.0) K/mm3 Neutrophils % (Manual) (50.0-70.0) % Band Neutrophils % (0-2) % Lymphocytes % (Manual) (22.0-35.0) % Monocytes % (Manual) (1.0-6.0) % Platelet Evaluation (NORMAL) Sodium (132-148) mmol/L Potassium (3.6-5.0) mmol/L Chloride (98-107) mmol/L Carbon Dioxide (21-33) mmol/L Anion Gap (10-20) BUN (7-21) mg/dL Creatinine (0.7-1.2) mg/dl Est GFR ( Amer) Est GFR (Non-Af Amer) POC Glucose (mg/dL) 306 H (65-110) mg/dL Random Glucose (70-110) mg/dL Calcium (8.4-10.5) mg/dL Total Bilirubin (0.2-1.3) mg/dL AST (14-36) U/L ALT (7-56) U/L Alkaline Phosphatase (38-126) U/L Total Protein (5.8-8.3) g/dL Albumin (3.0-4.8) g/dL Globulin gm/dL Albumin/Globulin Ratio (1.1-1.8) Laboratory Results - last 24 hr 01/25/18 01/25/18 01/25/18 11:47 11:50 16:18 WBC 21.8 H D RBC 3.39 L Hgb 10.8 L Hct 31.4 L MCV 92.6 MCH 31.9 MCHC 34.4 RDW 13.0 Plt Count 264 MPV 10.9 Gran % 83.6 H Lymph % (Auto) 5.6 L [place] % (Auto) 10.8 H Eos % (Auto) 0.0 L Baso % (Auto) 0.0 Gran # 18.23 H Lymph # (Auto) 1.2 [place] # (Auto) 2.4 H Eos # (Auto) 0.0 Baso # (Auto) 0.01 Neutrophils % (Manual) Band Neutrophils % Lymphocytes % (Manual) Monocytes % (Manual) Platelet Evaluation Sodium Potassium Chloride Carbon Dioxide Anion Gap BUN Creatinine Est GFR ( Amer) Est GFR (Non-Af Amer) POC Glucose (mg/dL) 306 H 266 H Random Glucose Calcium Total Bilirubin AST ALT Alkaline Phosphatase Total Protein Albumin Globulin Albumin/Globulin Ratio 01/25/18 01/26/18 01/26/18 21:53 06:05 06:05 WBC 26.2 H* D RBC 3.18 L Hgb 9.9 L Hct 29.6 L MCV 93.1 MCH 31.1 MCHC 33.4 RDW 13.8 Plt Count 231 MPV 11.5 H Gran % 89.3 H Lymph % (Auto) 2.8 L [place] % (Auto) 7.9 H Eos % (Auto) 0.0 L Baso % (Auto) 0.0 Gran # 23.35 H Lymph # (Auto) 0.7 L [place] # (Auto) 2.1 H Eos # (Auto) 0.0 Baso # (Auto) 0.01 Neutrophils % (Manual) 96 H Band Neutrophils % 1 Lymphocytes % (Manual) 2 L Monocytes % (Manual) 1 Platelet Evaluation Normal Sodium 136 Potassium 4.5 Chloride 100 Carbon Dioxide 22 Anion Gap 18 BUN 35 H Creatinine 1.2 Est GFR ( Amer) 51 Est GFR (Non-Af Amer) 42 POC Glucose (mg/dL) 270 H Random Glucose 429 H* D Calcium 9.7 Total Bilirubin 0.5 AST 88 H D ALT 32 Alkaline Phosphatase 88 Total Protein 7.2 Albumin 4.1 Globulin 3.1 Albumin/Globulin Ratio 1.3 01/26/18 07:21 WBC RBC Hgb Hct MCV MCH MCHC RDW Plt Count MPV Gran % Lymph % (Auto) [place] % (Auto) Eos % (Auto) Baso % (Auto) Gran # Lymph # (Auto) [place] # (Auto) Eos # (Auto) Baso # (Auto) Neutrophils % (Manual) Band Neutrophils % Lymphocytes % (Manual) Monocytes % (Manual) Platelet Evaluation Sodium Potassium Chloride Carbon Dioxide Anion Gap BUN Creatinine Est GFR ( Amer) Est GFR (Non-Af Amer) POC Glucose (mg/dL) 301 H Random Glucose Calcium Total Bilirubin AST ALT Alkaline Phosphatase Total Protein Albumin Globulin Albumin/Globulin Ratio Fingerstick Blood Sugar Results: 300 Review of Systems - Review of Systems Review of Systems: unable to obtain Critical Care Progress Note - Nutrition Nutrition: Nutrition Category Date Time Status NPO Diet [DIET] Diets 01/25/18 Breakfast Ordered Assessment/Plan - Assessment and Plan (Free Text) Assessment: Patient is 88yo female with PMhx of HTN, DM, colon cancer s/p R hemicolectomy, COPD, TIA, admitted for AMS, found to have large acute left IPH. Plan: Plan: - supp o2 as needed - NPO - neurology consult - neurosurgery follow up - FS control - mannitol - GI ppx, PPI - DVT ppx, SCDs - palliative care DNR/DNI transfer to floor for palliative care <Clifford Cain - Last Filed: 01/26/18 12:23> CCU Objective - Vital Signs / Intake & Output Intake and Output (Last 8hrs): Intake & Output 01/25/18 01/26/18 01/26/18 22:59 06:59 14:59 Intake Total 100 50 Balance 100 50 Intake: IV 100 50 - Medications Active Medications: Active Medications Generic Name Dose Route Start Last Admin Trade Name Freq PRN Reason Stop Dose Admin Levetiracetam 250 mg/ Sodium 102.5 mls @ 460 mls/hr 01/25/18 22:00 01/26/18 10:28 Chloride IV 460 mls/hr Q12 [facility] Administration Mannitol 200 mls @ 100 mls/hr 01/25/18 18:00 01/26/18 05:07 Mannitol IV 100 mls/hr Q6 [facility] Administration Insulin Human Lispro 0 units 01/26/18 11:30 Humalog Med SC ACHS [facility] Protocol Morphine Sulfate 2 mg 01/25/18 16:43 Morphine IVP Q2H PRN Pain, severe (8-10) Ondansetron HCl 4 mg 01/24/18 23:39 Zofran Inj IVP Q4H PRN Nausea/Vomiting Pantoprazole Sodium 40 mg 01/25/18 10:00 01/26/18 10:29 Protonix Inj IVP 40 mg Q12 [facility] Administration - Patient Studies Lab Studies: Microbiology Studies 01/24/18 22:55 MRSA Culture (Admit) - Final Naris MRSA NOT DETECTED Lab Studies 01/26/18 01/26/18 01/26/18 Range/Units 07:21 06:05 06:05 WBC 26.2 H* D (4.5-11.0) 10^3/ul RBC 3.18 L (3.5-6.1) 10^6/uL Hgb 9.9 L (12.0-16.0) g/dL Hct 29.6 L (36.0-48.0) % MCV 93.1 (80.0-105.0) fl MCH 31.1 (25.0-35.0) pg MCHC 33.4 (31.0-37.0) g/dl RDW 13.8 (11.5-14.5) % Plt Count 231 (120.0-450.0) 10^3/uL MPV 11.5 H (7.0-11.0) fl Gran % 89.3 H (50.0-68.0) % Lymph % (Auto) 2.8 L (22.0-35.0) % [place] % (Auto) 7.9 H (1.0-6.0) % Eos % (Auto) 0.0 L (1.5-5.0) % Baso % (Auto) 0.0 (0.0-3.0) % Gran # 23.35 H (1.4-6.5) Lymph # (Auto) 0.7 L (1.2-3.4) [place] # (Auto) 2.1 H (0.1-0.6) Eos # (Auto) 0.0 (0.0-0.7) Baso # (Auto) 0.01 (0.0-2.0) K/mm3 Neutrophils % (Manual) 96 H (50.0-70.0) % Band Neutrophils % 1 (0-2) % Lymphocytes % (Manual) 2 L (22.0-35.0) % Monocytes % (Manual) 1 (1.0-6.0) % Platelet Evaluation Normal (NORMAL) Sodium 136 (132-148) mmol/L Potassium 4.5 (3.6-5.0) mmol/L Chloride 100 (98-107) mmol/L Carbon Dioxide 22 (21-33) mmol/L Anion Gap 18 (10-20) BUN 35 H (7-21) mg/dL Creatinine 1.2 (0.7-1.2) mg/dl Est GFR ( Amer) 51 Est GFR (Non-Af Amer) 42 POC Glucose (mg/dL) 301 H (65-110) mg/dL Random Glucose 429 H* D (70-110) mg/dL Calcium 9.7 (8.4-10.5) mg/dL Total Bilirubin 0.5 (0.2-1.3) mg/dL AST 88 H D (14-36) U/L ALT 32 (7-56) U/L Alkaline Phosphatase 88 (38-126) U/L Total Protein 7.2 (5.8-8.3) g/dL Albumin 4.1 (3.0-4.8) g/dL Globulin 3.1 gm/dL Albumin/Globulin Ratio 1.3 (1.1-1.8) 01/25/18 01/25/18 Range/Units 21:53 16:18 WBC (4.5-11.0) 10^3/ul RBC (3.5-6.1) 10^6/uL Hgb (12.0-16.0) g/dL Hct (36.0-48.0) % MCV (80.0-105.0) fl MCH (25.0-35.0) pg MCHC (31.0-37.0) g/dl RDW (11.5-14.5) % Plt Count (120.0-450.0) 10^3/uL MPV (7.0-11.0) fl Gran % (50.0-68.0) % Lymph % (Auto) (22.0-35.0) % [place] % (Auto) (1.0-6.0) % Eos % (Auto) (1.5-5.0) % Baso % (Auto) (0.0-3.0) % Gran # (1.4-6.5) Lymph # (Auto) (1.2-3.4) [place] # (Auto) (0.1-0.6) Eos # (Auto) (0.0-0.7) Baso # (Auto) (0.0-2.0) K/mm3 Neutrophils % (Manual) (50.0-70.0) % Band Neutrophils % (0-2) % Lymphocytes % (Manual) (22.0-35.0) % Monocytes % (Manual) (1.0-6.0) % Platelet Evaluation (NORMAL) Sodium (132-148) mmol/L Potassium (3.6-5.0) mmol/L Chloride (98-107) mmol/L Carbon Dioxide (21-33) mmol/L Anion Gap (10-20) BUN (7-21) mg/dL Creatinine (0.7-1.2) mg/dl Est GFR ( Amer) Est GFR (Non-Af Amer) POC Glucose (mg/dL) 270 H 266 H (65-110) mg/dL Random Glucose (70-110) mg/dL Calcium (8.4-10.5) mg/dL Total Bilirubin (0.2-1.3) mg/dL AST (14-36) U/L ALT (7-56) U/L Alkaline Phosphatase (38-126) U/L Total Protein (5.8-8.3) g/dL Albumin (3.0-4.8) g/dL Globulin gm/dL Albumin/Globulin Ratio (1.1-1.8) Laboratory Results - last 24 hr 01/25/18 01/25/18 01/26/18 16:18 21:53 06:05 WBC 26.2 H* D RBC 3.18 L Hgb 9.9 L Hct 29.6 L MCV 93.1 MCH 31.1 MCHC 33.4 RDW 13.8 Plt Count 231 MPV 11.5 H Gran % 89.3 H Lymph % (Auto) 2.8 L [place] % (Auto) 7.9 H Eos % (Auto) 0.0 L Baso % (Auto) 0.0 Gran # 23.35 H Lymph # (Auto) 0.7 L [place] # (Auto) 2.1 H Eos # (Auto) 0.0 Baso # (Auto) 0.01 Neutrophils % (Manual) 96 H Band Neutrophils % 1 Lymphocytes % (Manual) 2 L Monocytes % (Manual) 1 Platelet Evaluation Normal Sodium Potassium Chloride Carbon Dioxide Anion Gap BUN Creatinine Est GFR ( Amer) Est GFR (Non-Af Amer) POC Glucose (mg/dL) 266 H 270 H Random Glucose Calcium Total Bilirubin AST ALT Alkaline Phosphatase Total Protein Albumin Globulin Albumin/Globulin Ratio 01/26/18 01/26/18 06:05 07:21 WBC RBC Hgb Hct MCV MCH MCHC RDW Plt Count MPV Gran % Lymph % (Auto) [place] % (Auto) Eos % (Auto) Baso % (Auto) Gran # Lymph # (Auto) [place] # (Auto) Eos # (Auto) Baso # (Auto) Neutrophils % (Manual) Band Neutrophils % Lymphocytes % (Manual) Monocytes % (Manual) Platelet Evaluation Sodium 136 Potassium 4.5 Chloride 100 Carbon Dioxide 22 Anion Gap 18 BUN 35 H Creatinine 1.2 Est GFR ( Amer) 51 Est GFR (Non-Af Amer) 42 POC Glucose (mg/dL) 301 H Random Glucose 429 H* D Calcium 9.7 Total Bilirubin 0.5 AST 88 H D ALT 32 Alkaline Phosphatase 88 Total Protein 7.2 Albumin 4.1 Globulin 3.1 Albumin/Globulin Ratio 1.3 Critical Care Progress Note - Nutrition Nutrition: Nutrition Category Date Time Status NPO Diet [DIET] Diets 01/25/18 Breakfast Ordered Assessment/Plan - Assessment and Plan (Free Text) Plan: Patient seen and examined on rounds with resident, agree with note with following additions/excpetions. Patient is 88yo female admitted with large IPH, with mass effect, shift. Non responsive. Pt is DNR/DNI, comfort measures as requested by family. Palliative care consulted. DNR/DNI, comfort measures, PRN morphine, transfer to floor
[2018-01-26] MEDS: Insulin Lispro (humaLOG) MEDIUM Coverage SC SCH ×3 (12:01→22:31)
--- NOTE | 2018-01-26 16:59 | PN ---
DATE: 01/26/2018 SUBJECTIVE: The patient is now responsive. PHYSICAL EXAMINATION: VITAL SIGNS: Temperature is 98.1, pulse of 98, blood pressure is 150/59, respiration is 22. GENERAL: The patient is lying in bed, flat, comfortable. HEENT: No oral lesion. Anicteric sclerae. Moist mucosa. NECK: No JVD, adenopathy, or thyromegaly. CARDIOVASCULAR: S1 and S2, regular. No murmurs, rubs, or gallops. LUNGS: Clear to auscultation bilaterally. No wheeze, rales, or rhonchi. ABDOMEN: Bowel sounds are positive, soft, nontender and nondistended. EXTREMITIES: no cyanosis, clubbing or edema. LABORATORY DATA: White count of 26.2, hemoglobin is 9.9, creatinine is 1.2. Repeat CAT scan of the head done shows increased size and hemorrhagic infarct in the left hemisphere with 17 mm shift. There is a new infarct in the left thalamus and left occipital. ASSESSMENT: 1. 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 Diabetes type 2. 2. History of colon cancer. 3. Hypertension. 4. Do not resuscitate/do no intubate. PLAN: The patient is critically ill. She is not expected to survive. The patient's family is aware. The patient is going to be made comfort care. She is not responsive on verbal or tactile stimulation. She is going to be transferred to the floor. The patient was seen by Neurosurgery. Palliative Care in involved. The patient is on Mannitol. She is receiving Keppra for prophylaxis. The patient has been given vitamin K. The patient is n.p.o. She is comfortable. John Loera MD
[2018-01-27 05:29] VITALS: BP 163/65; O2SAT 93
[2018-01-27 07:01] VITALS: PULSE 81; RESP 24; TEMP 98.8
[2018-01-27] MEDS: Insulin Lispro (humaLOG) MEDIUM Coverage SC SCH (08:06)
--- NOTE | 2018-01-27 08:18 | PN ---
DATE: 01/26/2018 NEUROLOGY FOLLOWUP CHIEF COMPLAINT: Followup for status post intracranial bleed. SUBJECTIVE: The patient is seen and examined on the bedside, pretty much withdraws on localized noxious stimulus, and did have shallow breath. The patient's family decided on palliative comfort care. Her repeat CAT scan showed an increased size of the hemorrhage infarct in the left hemisphere with 17 mm shift and new infarct in the left thalamus and left occipital lobe. Neurosurgery recommended neurosurgical intervention which I agree with, keeping her on more of comfort care measures. PAST MEDICAL HISTORY: History of type 2 diabetes mellitus, colon cancer status post right hemicolectomy, COPD, history of TIA, history of syncope. REVIEW OF SYSTEMS: Difficult to obtain due to the patient's underlying altered mental status. SOCIAL HISTORY: No illicit drug use, smoking or EtOH abuse. MEDICATIONS: Reviewed by nurse reconciliation sheet FAMILY HISTORY: Noncontributory. PHYSICAL EXAMINATION: VITAL SIGNS: Temperature afebrile, pulse rate is 99, blood pressure 150/59, respiratory rate of 35, oxygen saturation 97%. GENERAL: The patient is in bed, drowsy, in no acute distress. HEENT: Atraumatic, normocephalic. PERRLA. Extraocular muscles intact. NECK: Supple. No JVD. No adenopathy noted. HEART: S1 and S2, tachycardic, no murmurs, rubs or gallops. ABDOMEN: Soft, nontender and nondistended. Bowel sounds are present. EXTREMITIES: No clubbing. No cyanosis. Pulses 2+ felt bilaterally. NEUROLOGIC: The patient is in a stupor state. Speech is difficult to assess at this time due to the patient's drowsiness. Cranial nerves II through XII intact except for mild right nasolabial fold flattening. Motor examination: Decreased tone on the right side compared to the left, indicating right-sided weakness. Sensory examination: Withdraws on localized noxious stimulus and opens eyes intermittently to noxious stimulus. DTRs are 1+ throughout. Toes are upgoing bilaterally. Coordination: Gait is deferred for now. ASSESSMENT AND PLAN: This is an 88-year-old woman, history of hypertension, type 2 diabetes mellitus, diabetic peripheral neuropathy, colon cancer status post right hemicolectomy, chronic obstructive pulmonary disease, history of syncope, history of prior transient ischemic attack, history of old left basal ganglia infarct, was brought to the hospital after being found down by family members, found to have a large acute left frontal intraparenchymal hemorrhage with a mass effect. Repeat CAT scan showed increased size of the hemorrhagic infarct to the left hemisphere with 17 mm midline shift and a new infarct in the left thalamus and left occipital lobe. At this time, altered mental status is secondary to acute intracranial hemorrhage as well as the new left thalamic and left occipital infarct. RECOMMENDATION: 1. No neurosurgical intervention. 2. Low-dose Keppra IV 250 q. 12 for seizure prophylaxis. 3. Comfort measures. 4. Keep her blood sugars in 140 to 180 and avoid hyperglycemic accelerations. 5. Continue with comfort and follow up with palliative care. No further neurological intervention needed at this time. Case discussed with the family at bedside. Luke Del Valle MD
--- NOTE | 2018-01-27 10:48 | CP.PCM.PN ---
Subjective - Date & Time of Evaluation Date of Evaluation: 01/27/18 Time of Evaluation: 11:00 - Subjective Subjective: Smnolent, grimaces when examined. Tonic movement of left arm, twitching eyelids Objective - Vital Signs/Intake and Output Vital Signs (last 24 hours): Temp Pulse Resp BP Pulse Ox 98.8 F 81 24 163/65 H 93 L 01/27/18 06:00 01/27/18 06:00 01/27/18 06:00 01/27/18 06:00 01/27/18 06:00 Intake and Output: 01/27/18 01/27/18 06:59 18:59 Intake Total 500 Output Total 800 Balance -300 - Medications Medications: Current Medications Levetiracetam 250 mg/ Sodium (Chloride) 102.5 mls @ 460 mls/hr IV Q12 [facility] Last Admin: 01/26/18 22:31 Dose: 460 mls/hr Mannitol (Mannitol) 200 mls @ 50 mls/hr IV Q6 [facility] Last Admin: 01/27/18 06:32 Dose: 50 mls/hr Insulin Human Lispro (Humalog Med) 0 units SC ACHS [facility] PRN Reason: Protocol Last Admin: 01/27/18 08:06 Dose: 7 units Morphine Sulfate (Morphine) 2 mg IVP Q2H PRN PRN Reason: Pain, severe (8-10) Ondansetron HCl (Zofran Inj) 4 mg IVP Q4H PRN PRN Reason: Nausea/Vomiting - Labs Labs: 01/26/18 06:05 01/26/18 06:05 PT 10.8 SECONDS (9.4-12.5) 01/24/18 21:31 INR 0.95 (0.93-1.08) 01/24/18 21:31 APTT 29.3 Seconds (25.1-36.5) 01/24/18 21:31 - Constitutional Appears: No Acute Distress - Head Exam Head Exam: NORMOCEPHALIC - Eye Exam Eye Exam: Normal appearance Additional comments: occasional twitching of eyelids - ENT Exam ENT Exam: Mucous Membranes Moist - Respiratory Exam Respiratory Exam: Decreased Breath Sounds, Clear to Ausculation Bilateral - Cardiovascular Exam Cardiovascular Exam: REGULAR RHYTHM, +S1, +S2 - GI/Abdominal Exam GI & Abdominal Exam: Soft, Hypoactive Bowel Sounds - Extremities Exam Additional comments: occasional tonic movement of left arm - Neurological Exam Neurological Exam: Altered - Skin Skin Exam: Dry, Pallor Assessment and Plan - Assessment and Plan (Free Text) Assessment: 88 year old female with history of CPD, HTN syncope who was admitted with 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 The patient has been receiving mannitol for yo ICP pressure and Keppra to control seizure activity Family and I have had lengthy discussion regarding goals of care. Family aware of poor prognosis and are requesting comfort care. Patient to be evaluated for GIP services to control pain and seizure activity. Time spent with family in goals of care and end of life counseling, 30 minutes Plan: Discharge and admit to Med Surg [facility] hosp[facility] Decrease Mannitol to 25 mg per hour IV Will add Morphine 1 g/hr continuos infusion Seizures: Keppra 250 mg IV BID. Ativan 1 mg IV every 6 hours PRN. Scopolamine transdermal patch every 72 hours to reduce upper airway secretions
--- NOTE | 2018-01-27 12:47 | PN ---
DATE: SUBJECTIVE: The patient is now responsive. PHYSICAL EXAMINATION: VITAL SIGNS: Temperature is 98.8, pulse of 81, blood pressure 163/65, respirations 24. GENERAL: The patient is lying in bed, flat, comfortable. HEENT: No oral lesion. Anicteric sclerae. Moist mucosa. NECK: No JVD, adenopathy, or thyromegaly. CARDIOVASCULAR: S1 and S2, regular. No murmurs, rubs, or gallops. LUNGS: Clear to auscultation bilaterally. No wheeze, rales, or rhonchi. ABDOMEN: Bowel sounds are positive, soft, nontender and nondistended. EXTREMITIES: No cyanosis, clubbing or edema. ASSESSMENT: 1. 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 2. Diabetes type 2. 3. History of colon cancer. 4. Hypertension. 5. Do not resuscitate/do no intubate. PLAN: The patient is on morphine p.r.n. She is going to continue with Keppra for seizure prevention. The patient is on Zofran as needed. She is n.p.o. Hospice will need to evaluate the patient, the family is aware that the patient's prognosis is poor. John Loera MD
== END 2018-01-27 11:24 | disposition hospice, inpatient (51) | DRG 64 ==
LOC: ED 20:59 → ERH 22:02 → CCU 22:30
PROVIDERS: ADMIT Internal Medicine Nephrology; ATTEND Internal Medicine Nephrology
DX: I61.1 Nontraumatic intracerebral hemorrhage in hemisphere, cortical (principal); G93.6 Cerebral edema; G81.91 Hemiplegia, unspecified affecting right dominant side; R47.01 Aphasia; I10 Essential (primary) hypertension; J44.9 Chronic obstructive pulmonary disease, unspecified; Z66 Do not resuscitate; E11.42 Type 2 diabetes mellitus with diabetic polyneuropathy; E11.65 Type 2 diabetes mellitus with hyperglycemia; R56.9 Unspecified convulsions; R25.3 Fasciculation; Z85.038 Personal history of other malignant neoplasm of large intestine; Z86.73 Personal history of transient ischemic attack (TIA), and cerebral infarction without residual deficits; Z79.4 Long term (current) use of insulin; Z90.49 Acquired absence of other specified parts of digestive tract; Z87.891 Personal history of nicotine dependence

== ENCOUNTER 2018-01-27 11:29 | Inpatient (IN) | payer OTHER ==
[2018-01-27] MEDS ORDERED: Morphine PCA 1 mg/ml (30ml) 30 ML IV PRN (11:37)
[2018-01-27 12:06] VITALS: BP 124/74; PULSE 94; RESP 24; TEMP 98; BMI 19.1
[2018-01-27] MEDS: levETIRAcetam 500mg IVPB 500 MG/100 ML BAG IVPB SCH (22:00)
[2018-01-28] MEDS ORDERED: Morphine 2 mg/2 mL syringe IVP STA (09:21)
[2018-01-28] MEDS ORDERED: Morphine PCA 1 mg/ml (30ml) 30 ML IV PRN (09:21)
[2018-01-28] MEDS: levETIRAcetam 500mg IVPB 500 MG/100 ML BAG IVPB SCH ×2 (10:33→21:48)
[2018-01-28] MEDS: Tetrahydrozoline Opht 0.05% Sol (15 ml) OU SCH ×2 (10:33→18:10)
--- NOTE | 2018-01-28 12:01 | CP.PCM.PN ---
Subjective - Date & Time of Evaluation Date of Evaluation: 01/28/18 Time of Evaluation: 10:00 - Subjective Subjective: Tachypneic, tachycardic. Objective - Vital Signs/Intake and Output Vital Signs (last 24 hours): Temp Pulse Resp BP Pulse Ox 98.0 F 94 H 24 124/74 01/27/18 11:56 01/27/18 11:56 01/27/18 11:56 01/27/18 11:56 Intake and Output: 01/28/18 01/28/18 06:59 18:59 Intake Total 0 Output Total 0 Balance 0 - Medications Medications: Current Medications Acetaminophen (Tylenol 650 Mg Supp) 650 mg RC Q4H PRN PRN Reason: Fever >100.4 F Levetiracetam (Keppra 500mg Ivpb) 500 mg in 100 mls @ 200 mls/hr IVPB Q12 ON LICENSE OF [facility] Last Admin: 01/28/18 10:33 Dose: 200 mls/hr Morphine Sulfate (Morphine Fur Drummer 1 Mg/Ml) 30 mls @ 2 mls/hr IV PRN PRN; Protocol ; 2 MG/HR PRN Reason: BUTTERMAKER PER MD ORDER Last Admin: 01/28/18 10:51 Dose: 2 mg/hr, 2 mls/hr Lorazepam (Ativan) 1 mg IVP Q6H PRN; Protocol PRN Reason: Anxiety Scopolamine (Transderm-Scop) 1 patch TD Q3D ON LICENSE OF [facility] Last Admin: 01/27/18 13:54 Dose: 1 patch Tetrahydrozoline HCl/Zinc Sulfate (Visine 0.05% Opht Soln) 0 ml OU BID ON LICENSE OF [facility] Last Admin: 01/28/18 10:33 Dose: 1 drp - Constitutional Appears: Cachectic, Chronically Ill - Eye Exam Eye Exam: Normal appearance Additional comments: sluggish - ENT Exam ENT Exam: Mucous Membranes Dry - Respiratory Exam Respiratory Exam: Decreased Breath Sounds Additional comments: tachypnea, irregular - Cardiovascular Exam Cardiovascular Exam: Tachycardia, Irregular Rhythm - GI/Abdominal Exam GI & Abdominal Exam: Soft, Diminished Bowel Sounds - Exam Additional comments: oliguria - Extremities Exam Extremities Exam: Normal Capillary Refill - Back Exam Back Exam: NORMAL INSPECTION - Neurological Exam Additional comments: obtunded - Skin Skin Exam: Dry, Pallor Assessment and Plan - Assessment and Plan (Free Text) Assessment: 88 year old female with history of HTN, COPD who was admitted with altered mental status,acute hemorrhagic left MCA, left occipital and thalamic infarcts, seizures. The patient now admitted under [facility] hospice services for management of pain,seizures and symptom control. Today she is tachypneic, tachycardic,grimaces when examined. Family at bedside.Signs of impending explained, end of life counseling given. Psychosocial support provided. Time spent with family, 30 minutes Plan: Pain: Morphine 2 mg IVP now.Increase Morphine to 2mg/hr continuous IV infusion. Tylenol 650 mg RC now. Scopolamine transdermal pact for redction in upper airways secretions Keppra 500 mgIV every 12 hours for seizure management. Ativan 1 mg IV every 6 as needed for agitation/restlessness. End of life counseling
--- NOTE | 2018-01-29 01:38 | CP.PCM.PN ---
Subjective - Date & Time of Evaluation Date of Evaluation: 01/29/18 Time of Evaluation: 01:36 - Subjective Subjective: pt with no response ,not breathing no pulse no bp, pt was hospice t 1; 30 AM. 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 FAMILY IS AT BED SIDE .PMD INFORMED.
--- NOTE | 2018-01-29 06:23 | HP ---
HISTORY OF PRESENT ILLNESS: Please see the initial H and P that was dictated on 01/25/2018 for details. I have reviewed the H and P, and I do agree with this. Briefly, this is an 88-year-old female who came in to the hospital and had intracerebral bleed. A repeat CT done showed that the bleed had increased in size. She was nonresponsive. After a discussion with the patient's family, it was decided that she would be made comfortable and no further intervention will be done. She is currently admitted under hospice services. I saw the patient earlier this morning with two family members within the room. She was comfortable and she was having mild tachypnea. The patient's morphine was adjusted by the Palliative Care nurse, who did give support to the patient's family and explained to them dying process and answered questions. PHYSICAL EXAMINATION: VITAL SIGNS: Temperature is 98, pulse is 94, blood pressure 124/74, respirations 24, O2 saturation 98%. GENERAL: The patient is lying in bed, flat, comfortable. HEENT: No oral lesion. Anicteric sclerae. Moist mucosa. NECK: No JVD, adenopathy, or thyromegaly. CARDIOVASCULAR: S1 and S2, regular. No murmurs, rubs, or gallops. LUNGS: Clear to auscultation bilaterally. No wheeze, rales, or rhonchi. ABDOMEN: Bowel sounds are positive, soft, nontender and nondistended. EXTREMITIES: no cyanosis, clubbing or edema. ASSESSMENT: 1. Left middle cerebral artery area intracerebral hemorrhage. 2. Diabetes type 2. 3. Hypertension. 4. History of colon cancer. 5. Do not resuscitate/do not intubate. PLAN: The patient is currently comfortable. She is on morphine drip. She is receiving Keppra for her seizures. Patient is on Tylenol as needed. She remains n.p.o. She is DNR. John Loera MD
== END 2018-01-29 01:30 | DRG 65 ==
LOC: CCU 11:29 → 5RNO 15:48
PROVIDERS: ADMIT Internal Medicine Nephrology; ATTEND Internal Medicine Nephrology
DX: I61.9 Nontraumatic intracerebral hemorrhage, unspecified (principal); Z51.5 Encounter for palliative care; R64 Cachexia; Z68.1 Body mass index [BMI] 19.9 or less, adult; R56.9 Unspecified convulsions; Z66 Do not resuscitate; E11.9 Type 2 diabetes mellitus without complications; I10 Essential (primary) hypertension; J44.9 Chronic obstructive pulmonary disease, unspecified; R06.82 Tachypnea, not elsewhere classified; R00.0 Tachycardia, unspecified; Z85.038 Personal history of other malignant neoplasm of large intestine